=== PATIENT | female | born 1990 | race African-American/Black ===

== ENCOUNTER 2017-02-24 22:25 | Observation (INO) | payer MEDICAID ==
[~2017-02-24] VITALS: Ht 175.3 cm; Wt 75.0 kg
[~2017-02-24 22:25] MED LIST: BACT800T5 PO; CEPH500C3 PO; IBUP800T23 PO
[2017-02-24 22:45] VITALS: BP 141/93; PULSE 96; RESP 17; TEMP 99; O2SAT 100
[2017-02-24] MEDS ORDERED: SODIUM CHLOR 0.9% 1000 ML INJ 1,000 ML IV ONE (22:47)
--- NOTE | 2017-02-24 22:56 | PD ---
HPI Chief Complaint: Cardiac Complaint Time Seen by Provider: 22:47 Travel History International Travel<30 days: No Contact w/Intl Traveler<30days: No Traveled to known affect area: No History of Present Illness HPI A 26 year old female presents to the emergency department for a "fast heart rate". This started about 45 minutes ago out of no where while she was driving home from work. A few minutes after her heart started to beat fast she noticed some numbness and tingling in her fingers on both sides. She pulled over and called 911. she denied shortness of breath, chest pain, nausea & vomiting. She has never had anything like this happen before. She smokes 2 black and milds a day and drinks 2 beers a week. Her mom has a history of heart valve problems. She has no medical conditions, denies taking any medications, and denies any drug allergies. She has had no surgeries. Patient denies any significant caffeine intake or prior history of arrhythmias. History Past Medical History Medical History: Denies Significant Hx : 1 Para: 1 Past Surgical History Surgical History: No Previous Surgery Social History Alcohol Use: Yes (OCCASIONALLY) Tobacco Use: Yes Allergies-Medications (Allergen,Severity, Reaction): Coded Allergies: No Known Allergies (Unverified , 02/24/17) Reported Meds & Prescriptions Reported Meds & Active Scripts Active No Active Prescriptions or Reported Medications Review of Systems Except as stated in HPI: all other systems reviewed are Neg General / Constitutional: No: Fever, Chills HENT: No: Headaches, Lightheadedness Cardiovascular: Positive: Palpitations, Tachycardia, No: Chest Pain or Discomfort, Diaphoresis, Edema Respiratory: No: Shortness of Breath Gastrointestinal: No: Nausea, Vomiting Musculoskeletal: No: Weakness Neurologic: Positive: Paresthesia, Sensory Disturbance, No: Dizziness Physical Exam Narrative GENERAL: Well-nourished, well-developed patient who is in no acute cardiopulmonary distress. SKIN: Warm and dry. HEAD: Normocephalic. EYES: No scleral icterus. No injection or drainage. NECK: Supple, trachea midline. No JVD or lymphadenopathy. CARDIOVASCULAR: Regular rate and rhythm without murmurs, gallops, or rubs. RESPIRATORY: Breath sounds equal bilaterally. No accessory muscle use. GASTROINTESTINAL: Abdomen soft, non-tender, nondistended. EXTREMITIES: No cyanosis, or edema. NEUROLOGICAL: Awake, alert, and oriented x 3. Non-focal. Data Data Last Documented VS Vital Signs Date Time Temp Pulse Resp B/P (MAP) Pulse Ox O2 Delivery O2 Flow Rate FiO2 02/24/17 23:29 134 18 98 Room Air 02/24/17 22:45 99.0 141/93 (109) Orders Orders Electrocardiogram (02/24/17 22:47) Complete Blood Count With Diff (02/24/17 22:47) Comprehensive Metabolic Panel (02/24/17 22:47) Magnesium (Mg) (02/24/17 22:47) Ckmb (Isoenzyme) Profile (02/24/17 22:47) Troponin I (02/24/17:47) Ecg Monitoring (02/24/17:47) Iv Access Insert/Monitor (02/24/17:47) Oximetry (02/24/17 22:47) Sodium Chloride 0.9% Flush (Ns Flush) (02/24/17 23:00) Sodium Chlor 0.9% 1000 Ml Inj (Ns 1000 M (02/24/17 22:47) D-Dimer (02/24/17:47) Thyroid Stimulating Hormone (02/24/17 22:47) Ed Urine Pregnancytest Poc (02/24/17:47) CKMB (02/24/17 22:00) CKMB% (02/24/17 22:00) Potassium Chloride (Kcl) (02/25/17 00:15) Labs Laboratory Tests Test 02/24/17 22:00 White Blood Count 7.3 TH/MM3 Red Blood Count 4.24 MIL/MM3 Hemoglobin 14.0 GM/DL Hematocrit 40.4 % Mean Corpuscular Volume 95.4 FL Mean Corpuscular Hemoglobin 33.1 PG Mean Corpuscular Hemoglobin Concent 34.7 % Red Cell Distribution Width 13.3 % Platelet Count 300 TH/MM3 Mean Platelet Volume 8.4 FL Neutrophils (%) (Auto) 46.2 % Lymphocytes (%) (Auto) 42.0 % Monocytes (%) (Auto) 10.3 % Eosinophils (%) (Auto) 1.0 % Basophils (%) (Auto) 0.5 % Neutrophils # (Auto) 3.4 TH/MM3 Lymphocytes # (Auto) 3.1 TH/MM3 Monocytes # (Auto) 0.8 TH/MM3 Eosinophils # (Auto) 0.1 TH/MM3 Basophils # (Auto) 0.0 TH/MM3 CBC Comment DIFF FINAL Differential Comment D-Dimer Quantitative (PE/DVT) 0.31 MG/L FEU Blood Urea Nitrogen 11 MG/DL Creatinine 1.04 MG/DL Random Glucose 102 MG/DL Total Protein 7.8 GM/DL Albumin 4.2 GM/DL Calcium Level 9.0 MG/DL Magnesium Level 1.6 MG/DL Alkaline Phosphatase 49 U/L Aspartate Amino Transf (AST/SGOT) 17 U/L Alanine Aminotransferase (ALT/SGPT) 17 U/L Total Bilirubin 2.1 MG/DL Sodium Level 136 MEQ/L Potassium Level 3.0 MEQ/L Chloride Level 102 MEQ/L Carbon Dioxide Level 23.0 MEQ/L Anion Gap 11 MEQ/L Estimat Glomerular Filtration Rate 76 ML/MIN Total Creatine Kinase 177 U/L Creatine Kinase MB 1.6 NG/ML Troponin I LESS THAN 0.02 NG/ML Thyroid Stimulating Hormone 3rd Gen 1.990 uIU/ML MDM Medical Decision Making Medical Screen Exam Complete: Yes Emergency Medical Condition: Yes Medical Record Reviewed: Yes Interpretation(s) EKG reveals normal sinus rhythm with a rate of 77. Short WI interval of 100 ms , no visible delta wave. 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 EKG #2 revealed sinus tachycardia with a rate of 121. Short interval [address] changes. No visible delta wave. Possible LGL Laboratory Tests Test 02/24/17 22:00 White Blood Count 7.3 TH/MM3 Red Blood Count 4.24 MIL/MM3 Hemoglobin 14.0 GM/DL Hematocrit 40.4 % Mean Corpuscular Volume 95.4 FL Mean Corpuscular Hemoglobin 33.1 PG Mean Corpuscular Hemoglobin Concent 34.7 % Red Cell Distribution Width 13.3 % Platelet Count 300 TH/MM3 Mean Platelet Volume 8.4 FL Neutrophils (%) (Auto) 46.2 % Lymphocytes (%) (Auto) 42.0 % Monocytes (%) (Auto) 10.3 % Eosinophils (%) (Auto) 1.0 % Basophils (%) (Auto) 0.5 % Neutrophils # (Auto) 3.4 TH/MM3 Lymphocytes # (Auto) 3.1 TH/MM3 Monocytes # (Auto) 0.8 TH/MM3 Eosinophils # (Auto) 0.1 TH/MM3 Basophils # (Auto) 0.0 TH/MM3 CBC Comment DIFF FINAL Differential Comment D-Dimer Quantitative (PE/DVT) 0.31 MG/L FEU Blood Urea Nitrogen 11 MG/DL Creatinine 1.04 MG/DL Random Glucose 102 MG/DL Total Protein 7.8 GM/DL Albumin 4.2 GM/DL Calcium Level 9.0 MG/DL Magnesium Level 1.6 MG/DL Alkaline Phosphatase 49 U/L Aspartate Amino Transf (AST/SGOT) 17 U/L Alanine Aminotransferase (ALT/SGPT) 17 U/L Total Bilirubin 2.1 MG/DL Sodium Level 136 MEQ/L Potassium Level 3.0 MEQ/L Chloride Level 102 MEQ/L Carbon Dioxide Level 23.0 MEQ/L Anion Gap 11 MEQ/L Estimat Glomerular Filtration Rate 76 ML/MIN Total Creatine Kinase 177 U/L Troponin I LESS THAN 0.02 NG/ML Thyroid Stimulating Hormone 3rd Gen 1.990 uIU/ML Differential Diagnosis SVT, pulmonary embolism, hyperthyroidism, hypothyroidism, electrolyte abnormalities, dehydration, Narrative Course IV was established, labs are drawn and sent, and the patient was placed on cardiac telemetry monitoring and continuous pulse oximetry monitoring. EKG #1 revealed normal sinus rhythm with short WI interval, EKG #2 revealed sinus tachycardia with a heart rate in the 120s with a short WI interval. D-dimer was negative at 0.31, therefore, no indication for CT pulmonary angiogram. TSH is within normal limits, I highly doubt hyperthyroidism. Potassium is low at 3.0, was replaced orally. The patient was reevaluated at 12:02 AM. The patient 's heart rate continued to vary between 80 and 130, appeared to be sinus tachycardia. Patient may have LGL, continues to be symptomatic, may benefit from echocardiogram, telemetry monitoring, and possible cardiology consultation for placement on a beta marysol if echocardiogram is negative. Patient agrees and understands. Therefore, the on-call medical service was paged for 23 hour observation. Physician Communication Physician Communication The on-call medical service was paged for 23 hour observation. Diagnosis Primary Impression: Inappropriate sinus node tachycardia Additional Impression: Hypokalemia Admitting Information Admitting Physician Requests: Observation Scripts No Active Prescriptions or Reported Meds Condition: Stable Tristan Valera MD Feb 24, 2017 22:56
[2017-02-24] MEDS ORDERED: SODIUM CHLORIDE 0.9% FLUSH 10 ML FLUSH IVF PRN (23:00)
[2017-02-24 23:29] VITALS: PULSE 134; RESP 18; O2SAT 98
[2017-02-24 23:44] LABS: ALT (GPT) 17 U/L (10-53); ANION GAP 11 MEQ/L (5-15); AST (GOT) 17 U/L (15-37); BLOOD UREA NITROGEN 11 MG/DL (7-18); CHLORIDE 102 MEQ/L (98-107); GLOMERULAR FILTRATION RATE 76 ML/MIN (>89); MAGNESIUM 1.6 MG/DL (1.5-2.5); SODIUM (NA) 136 MEQ/L (136-145)
[2017-02-24 23:54] LABS: ALKALINE PHOSPHATASE 49 U/L (45-117); CREATINE KINASE 177 U/L (26-192); TOTAL BILIRUBIN ADULT 2.1 MG/DL (0.2-1.0)
[2017-02-24 23:59] LABS: AUTOMATED NEUTROPHIL # 3.4 TH/MM3 (1.8-7.7); BASOPHIL % 0.5 % (0.0-2.0); EOSINOPHIL # 0.1 TH/MM3 (0-0.4); HEMATOCRIT 40.4 % (35.0-46.0); HEMO FLAGS DIFF FINAL; LYMPHOCYTE # 3.1 TH/MM3 (1.0-4.8); MEAN CELL VOLUME 95.4 FL (80.0-100.0); MEAN CORPUSCULAR HEMOGLOBIN 33.1 PG (27.0-34.0); MEAN CORPUSCULAR HGB CONC 34.7 % (32.0-36.0); MONO % 10.3 % (0.0-8.0); NEUT % 46.2 % (16.0-70.0); PLATELET COUNT 300 TH/MM3 (150-450); RED BLOOD COUNT 4.24 MIL/MM3 (4.00-5.30); RED CELL DISTRIBUTION WIDTH 13.3 % (11.6-17.2); WHITE BLOOD COUNT 7.3 TH/MM3 (4.0-11.0)
[2017-02-25] VITALS (9 sets, daily range): BP systolic 108–129; BP diastolic 53–75; PULSE 65–90; RESP 16–18; TEMP 98–99.3; O2SAT 99–100
[2017-02-25 00:06] LABS: CKMB 1.6 NG/ML (0.5-3.6)
[2017-02-25] MEDS ORDERED: POTASSIUM CHLORIDE 20 MEQ CONTROLLED RELEASE TAB PO ONE (00:15)
[2017-02-25] MEDS ORDERED: SODIUM CHLORIDE 0.9% FLUSH 10 ML FLUSH IV FLUSH PRN (00:45)
[2017-02-25] MEDS ORDERED: NALOXONE HCL 0.4 MG/ML AMP IV PRN (00:45)
[2017-02-25 05:25] LABS: CREATINE KINASE 157 U/L (26-192)
--- NOTE | 2017-02-25 08:30 | MB ---
cc: MARTINA BLAKE M.D. DATE OF CONSULTATION: 02/25/2017 REASON FOR CONSULTATION Tachycardia. HISTORY OF PRESENT ILLNESS The patient is a 26-year-old -Bh[place] female with no major past medical history who was in her usual state of health up until yesterday afternoon when while driving home from work she began to experience racing palpitations. She is unsure how long the palpitations lasted for but eventually she began to experience bilateral hand numbness and tingling so she became concerned and came to the emergency room. The patient states she has had two other episodes since coming into the hospital, lasting a few minutes. She denies prior episodes of tachycardic palpitations prior to yesterday. She denies chest pain, shortness of breath, dizziness, syncope, near-syncope, pedal edema, paroxysmal nocturnal dyspnea. She denies drug abuse. PAST MEDICAL HISTORY None. PAST SURGICAL HISTORY None. MEDICATIONS Medications at home are none. ALLERGIES No known drug allergies. FAMILY HISTORY The patient's mother may have sustained a myocardial infarction in her 50s. Her brother has hypertension. There is no family history of sudden cardiac . SOCIAL HISTORY The patient smokes cigarettes. She denies alcohol abuse. REVIEW OF SYSTEMS As in the history of present illness, otherwise negative or noncontributory. She also denies headache, abdominal pain, melena, bright red blood per rectum. Rarely she experiences heartburn. PHYSICAL EXAMINATION VITAL SIGNS: On physical examination her blood pressure is 110/60 with a pulse of 82, respirations 16. GENERAL: In general she is a well-developed, well-nourished -Bhut[place] female in no acute distress. HEENT/NECK: Jugular venous pressure is normal. Carotid pulses are 2+ bilaterally and without bruits. CHEST: Examination of the chest reveals clear lung frazier. CARDIAC: On cardiac examination she has a regular rhythm and rate without S3, S4, or murmur. ABDOMEN: On abdominal examination she has a soft, nontender abdomen. Bowel sounds are present. There is no definite hepatosplenomegaly. EXTREMITIES: Examination of the extremities reveals no clubbing, cyanosis or edema. LABORATORY Laboratory data includes normal CBC, potassium 3.0, BUN 11, creatinine 1.04, troponin less than 0.02, CK 177, TSH 1.99. EKG EKG from 02/24/2017 at 11:26 p.m. shows sinus tachycardia, otherwise normal. 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 Indeed she has had intermittent paroxysms of tachycardia without any definitive precipitating factor. Her previous EKGs do suggest a shortened PA interval. She has no associated lightheadedness or near-syncope with these palpitations. Clinically there is no definite evidence for pulmonary embolism or acute coronary syndrome. I discussed with the patient potential treatment options. It appears she has not had any prior symptomatic episodes of tachycardia before this admission. RECOMMENDATIONS 1. Overall conservative therapy at this time. If in the future she has recurrent significant racing palpitations, consider the use of Cardizem and/or an electrophysiology study. 2. Replete her potassium. 3. Check a 2-D echo to assess her left ventricular function. 4. She can be discharged home later today if stable. MD PAVEL Blum/VINAY /8:06 AM /8:15 AM MTDTricia
[2017-02-25] MEDS: SODIUM CHLORIDE 0.9% FLUSH 10 ML FLUSH IV FLUSH SCH ×2 (09:51→21:00)
--- NOTE | 2017-02-25 12:27 | HHI.HP ---
HPI Service [facility] Primary Care Physician No Primary Care Physician Admission Diagnosis inappropriate sinus tachycardia rule out LGL Diagnoses: (1) Inappropriate sinus node tachycardia (2) Hypokalemia (3) Lown Ganong Ramos syndrome Chief Complaint: Heart palpitations Travel History International Travel<30 Days: No Contact w/Intl Traveler <30 Da: No Traveled to Known Affected Are: No History of Present Illness 26 year-old -Marshallese female with no significant past medical history was brought to the ED last night for evaluation of an acute onset of sustained racing palpitation associated with shortness of breath as well as upper extremity tingling. Patient states, 5 minutes after she has left work and how she was driving her car she started feeling her heart racing without any chest pain(10 minutes then associated with upper extremity tingling as well as dizziness and shortness of breath. 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 She has no prior history. She denies any drug use. And she also denies drinking any caffeinated drink. She denies any GI bleed Review of Systems Except as stated in HPI: all other systems reviewed are Neg Past Family Social History Past Medical History Denies Significant Hx Past Surgical History No Previous Surgery Reported Medications No Active Prescriptions or Reported Medications Allergies: Coded Allergies: No Known Allergies (Unverified , 02/24/17) Family History Mother With history of atrial fibrillation, COPD, heart disease Social History Alcohol Use: Yes (OCCASIONALLY) Tobacco Use: Yes Physical Exam Vital Signs Vital Signs Date Time Temp Pulse Resp B/P (MAP) Pulse Ox O2 Delivery O2 Flow Rate FiO2 02/25/17 10:57 98.6 81 18 118/62 (80) 99 02/25/17 07:55 98.4 82 16 110/61 (77) 100 02/25/17 04:25 98.7 74 17 120/57 (78) 100 02/25/17 02:27 99.3 76 17 112/67 (82) 99 02/25/17 01:55 02/25/17 00:58 90 18 129/75 (93) 99 Room Air 02/24/17 23:29 134 18 98 Room Air 02/24/17 22:47 96 17 100 Room Air 02/24/17 22:45 99.0 96 17 141/93 (109) 100 Physical Exam GENERAL: This is a well-nourished, well-developed patient, in no apparent distress. SKIN: No rashes, ecchymoses or lesions. Cool and dry. HEAD: Atraumatic. Normocephalic. No temporal or scalp tenderness. EYES: Pupils equal round and reactive. Extraocular motions intact. No scleral icterus. No injection or drainage. ENT: Nose without bleeding, purulent drainage or septal hematoma. Throat without erythema, tonsillar hypertrophy or exudate. Uvula midline. Airway patent. NECK: Trachea midline. No JVD or lymphadenopathy. Supple, nontender, no meningeal signs. CARDIOVASCULAR: Regular rate and rhythm without murmurs, gallops, or rubs. RESPIRATORY: Clear to auscultation. Breath sounds equal bilaterally. No wheezes , rales, or rhonchi. GASTROINTESTINAL: Abdomen soft, non-tender, nondistended. No hepato-splenomegaly , or palpable masses. No guarding. MUSCULOSKELETAL: Extremities without clubbing, cyanosis, or edema. No joint tenderness, effusion, or edema noted. No calf tenderness. Negative Homans sign bilaterally. NEUROLOGICAL: Awake and alert. Cranial nerves II through XII intact. Motor and sensory grossly within normal limits. Five out of 5 muscle strength in all muscle groups. Normal speech. Laboratory Laboratory Tests Test 02/24/17 22:00 02/25/17 04:35 White Blood Count 7.3 Red Blood Count 4.24 Hemoglobin 14.0 Hematocrit 40.4 Mean Corpuscular Volume 95.4 Mean Corpuscular Hemoglobin 33.1 Mean Corpuscular Hemoglobin Concent 34.7 Red Cell Distribution Width 13.3 Platelet Count 300 Mean Platelet Volume 8.4 Neutrophils (%) (Auto) 46.2 Lymphocytes (%) (Auto) 42.0 Monocytes (%) (Auto) 10.3 Eosinophils (%) (Auto) 1.0 Basophils (%) (Auto) 0.5 Neutrophils # (Auto) 3.4 Lymphocytes # (Auto) 3.1 Monocytes # (Auto) 0.8 Eosinophils # (Auto) 0.1 Basophils # (Auto) 0.0 CBC Comment DIFF FINAL Differential Comment D-Dimer Quantitative (PE/DVT) 0.31 Blood Urea Nitrogen 11 Creatinine 1.04 Random Glucose 102 Total Protein 7.8 Albumin 4.2 Calcium Level 9.0 Magnesium Level 1.6 Alkaline Phosphatase 49 Aspartate Amino Transf (AST/SGOT) 17 Alanine Aminotransferase (ALT/SGPT) 17 Total Bilirubin 2.1 Sodium Level 136 Potassium Level 3.0 Chloride Level 102 Carbon Dioxide Level 23.0 Anion Gap 11 Estimat Glomerular Filtration Rate 76 Total Creatine Kinase 177 157 Creatine Kinase MB 1.6 Troponin I LESS THAN 0.02 LESS THAN 0.02 Thyroid Stimulating Hormone 3rd Gen 1.990 Result Diagram: 02/24/17219902/24/172199 Caprini VTE Risk Assessment Caprini VTE Risk Assessment: No/Low Risk (score <= 1) Caprini Risk Assessment Model Point Value = 1 Point Value = 2 Point Value = 3 Point Value = 5 Age 41-60 Minor surgery BMI > 25 kg/m2 Swollen legs Varicose veins or History of unexplained or recurrent spontaneous Oral contraceptives or hormone replacement Sepsis (< 1 month) Serious lung disease, including pneumonia (< 1 month) Abnormal pulmonary function Acute myocardial infarction Congestive heart failure (< 1 month) History of inflammatory bowel disease Medical patient at bed rest Age 61-74 Arthroscopic surgery Major open surgery (> 45 min) Laparoscopic surgery (> 45 min) Malignancy Confined to bed (> 72 hours) Immobilizing plaster cast Central venous access Age >= 75 History of VTE Family history of VTE Factor V Leiden Prothrombin [id number] Lupus anticoagulant Anticardiolipin antibodies Elevated serum homocysteine Heparin-induced thrombocytopenia Other congenital or acquired thrombophilia Stroke (< 1 month) Elective arthroplasty Hip, pelvis, or leg fracture Acute spinal cord injury (< 1 month) Prophylaxis Regimen Total Risk Factor Score Risk Level Prophylaxis Regimen 0-1 Low Early ambulation 2 Moderate Order ONE of the following: *Sequential Compression Device (SCD) *Heparin 5000 units SQ BID 3-4 Higher Order ONE of the following medications: *Heparin 5000 units SQ TID *Enoxaparin/Lovenox 40 mg SQ daily (WT < 150 kg, CrCl > 30 mL/min) *Enoxaparin/Lovenox 30 mg SQ daily (WT < 150 kg, CrCl > 10-29 mL/min) *Enoxaparin/Lovenox 30 mg SQ BID (WT < 150 kg, CrCl > 30 mL/min) AND/OR *Sequential Compression Device (SCD) 5 or more Highest Order ONE of the following medications: *Heparin 5000 units SQ TID (Preferred with Epidurals) *Enoxaparin/Lovenox 40 mg SQ daily (WT < 150 kg, CrCl > 30 mL/min) *Enoxaparin/Lovenox 30 mg SQ daily (WT < 150 kg, CrCl > 10-29 mL/min) *Enoxaparin/Lovenox 30 mg SQ BID (WT < 150 kg, CrCl > 30 mL/min) AND *Sequential Compression Device (SCD) Assessment and Plan Problem List: (1) Inappropriate sinus node tachycardia ICD Code: R00.0 - Tachycardia, unspecified Status: Acute (2) Hypokalemia ICD Code: E87.6 - Hypokalemia Status: Acute (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
[2017-02-25 14:05] LABS: CREATINE KINASE 157 U/L (26-192)
--- NOTE | 2017-02-25 19:35 | EKG ---
Date Performed: 02/25/2017 Time Performed: 05:37:15 PTAGE: 26 years EKG: Sinus rhythm NORMAL ECG PREVIOUS TRACING : 02/24/2017 23.26 Compared to the previous tracing rate slower DOCTOR: Charles Martino Interpretating Date/Time 02/25/2017 19:33:37
--- NOTE | 2017-02-25 19:42 | EKG ---
Date Performed: 02/24/2017 Time Performed: 23:26:03 PTAGE: 26 years EKG: SINUS TACHYCARDIA WITH SHORT AL INTERVAL POSSIBLE RIGHT VENTRICULAR CONDUCTION DELAY MODERA TE ST DEPRESSION ABNORMAL ECG PREVIOUS TRACING : 02/24/2017 23.12 Compared to the previous tracing ST changes and faster HR p resent DOCTOR: Charles Martino Interpretating Date/Time 02/25/2017 19:40:54
--- NOTE | 2017-02-25 19:42 | EKG ---
Date Performed: 02/24/2017 Time Performed: 23:12:19 PTAGE: 26 years EKG: Sinus rhythm WITH SHORT OR INTERVAL POSSIBLE RIGHT VENTRICULAR CONDUCTION DELAY BORDERLINE ECG PREVIOUS TRACING : 08/09/2014 05.07 Compared to prior tracing no significant change DOCTOR: Charles Martino Interpretating Date/Time 02/25/2017 19:41:13
--- NOTE | 2017-02-25 19:58 | ECHRPT ---
Indication: ARRTHYMIA CONCLUSIONS Normal left ventricular size. Wall thickness is normal. The left ventricular systolic function is n ormal with an estimated ejection fraction in the range of 55-60%. No regional wall motion abnormalities are pre sent. Trace mitral valve regurgitation. There is trace to mild tricuspid valve regurgitation. BP: / HR: Rhythm: Technical Quality: FINDINGS LEFT VENTRICLE Normal left ventricular size. Wall thickness is normal. The left ventricular systolic function is normal with an estimated ejection fraction in the range of 55-60%. No regional wall motion abnormalities are present. RIGHT VENTRICLE Normal right ventricular size and systolic function. LEFT ATRIUM The left atrial size is normal. RIGHT ATRIUM The right atrial size is normal. ATRIAL SEPTUM Normal atrial septal thickness without atrial level shunting by limited color doppler interrogation. AORTA The aortic root and proximal ascending aorta are normal in size on limited imaging. MITRAL VALVE Trace mitral valve regurgitation. AORTIC VALVE Trileaflet aortic valve. No aortic valve stenosis or regurgitation. TRICUSPID VALVE There is trace to mild tricuspid valve regurgitation. PULMONARY VALVE The pulmonary valve is not well visualized. VESSELS The inferior vena cava is normal in size. PERICARDIUM No pericardial effusion. James Bey MD (Electronically Signed) Final Date:25 February 2017 19:57
[2017-02-26 00:01] VITALS: PULSE 66
[2017-02-26 00:24] VITALS: BP 114/56; PULSE 68; RESP 18; TEMP 98.5; O2SAT 99
[2017-02-26 04:00] VITALS: PULSE 66
[2017-02-26 04:21] VITALS: BP 119/78; PULSE 66; RESP 20; TEMP 98.3; O2SAT 100
[2017-02-26 04:47] LABS: AUTOMATED NEUTROPHIL # 3.9 TH/MM3 (1.8-7.7); BASOPHIL % 0.7 % (0.0-2.0); EOSINOPHIL # 0.2 TH/MM3 (0-0.4); EOSINOPHIL % 2.4 % (0.0-4.0); HEMO FLAGS DIFF FINAL; LYMPH % 31.3 % (9.0-44.0); LYMPHOCYTE # 2.2 TH/MM3 (1.0-4.8); MEAN CORPUSCULAR HEMOGLOBIN 32.4 PG (27.0-34.0); MEAN CORPUSCULAR HGB CONC 33.8 % (32.0-36.0); MONO % 10.6 % (0.0-8.0); PLATELET COUNT 277 TH/MM3 (150-450); RED BLOOD COUNT 4.17 MIL/MM3 (4.00-5.30); RED CELL DISTRIBUTION WIDTH 13.4 % (11.6-17.2); WHITE BLOOD COUNT 7.1 TH/MM3 (4.0-11.0)
[2017-02-26 05:08] LABS: BICARBONATE 25.3 MEQ/L (21.0-32.0); POTASSIUM 3.8 MEQ/L (3.5-5.1)
[2017-02-26 07:06] VITALS: BP 108/53; PULSE 71; RESP 16; TEMP 98.3; O2SAT 100
--- NOTE | 2017-02-26 07:18 | PD.CARD.PN ---
Subjective Subjective Remarks No further palpitations. No dyspnea, CP. Objective Medications No cardiac medications. Vital Signs / I&O Vital Signs Date Time Temp Pulse Resp B/P (MAP) Pulse Ox O2 Delivery O2 Flow Rate FiO2 02/26/17 07:06 98.3 71 16 108/53 (71) 100 02/26/17 04:21 98.3 66 20 119/78 (92) 100 02/26/17 04:00 66 02/26/17 00:24 98.5 68 18 114/56 (75) 99 02/26/17 00:01 66 02/25/17 20:38 99.2 69 18 115/70 (85) 100 02/25/17 20:30 84 02/25/17 14:52 98.0 75 16 108/53 (71) 99 02/25/17 10:57 98.6 81 18 118/62 (80) 99 02/25/17 08:35 65 02/25/17 07:55 98.4 82 16 110/61 (77) 100 Physical Exam GENERAL: Well developed, well nourished. No acute distress. HEENT: Jugular venous pressure is normal. CHEST: Lungs clear to auscultation bilaterally. Unlabored respiratory effort. CARDIAC: Regular rate and rhythm without S3, S4, or murmur. ABDOMEN: Soft, nontender, no hepatosplenomegaly. Bowel sounds present. EXTREMITIES: No clubbing, cyanosis, or edema. Laboratory Laboratory Tests Test 02/25/17 12:40 02/26/17 04:25 Potassium Level 4.0 MEQ/L 3.8 MEQ/L Total Creatine Kinase 157 U/L Troponin I LESS THAN 0.02 NG/ML White Blood Count 7.1 TH/MM3 Red Blood Count 4.17 MIL/MM3 Hemoglobin 13.5 GM/DL Hematocrit 40.0 % Mean Corpuscular Volume 96.0 FL Mean Corpuscular Hemoglobin 32.4 PG Mean Corpuscular Hemoglobin Concent 33.8 % Red Cell Distribution Width 13.4 % Platelet Count 277 TH/MM3 Mean Platelet Volume 7.5 FL Neutrophils (%) (Auto) 55.0 % Lymphocytes (%) (Auto) 31.3 % Monocytes (%) (Auto) 10.6 % Eosinophils (%) (Auto) 2.4 % Basophils (%) (Auto) 0.7 % Neutrophils # (Auto) 3.9 TH/MM3 Lymphocytes # (Auto) 2.2 TH/MM3 Monocytes # (Auto) 0.8 TH/MM3 Eosinophils # (Auto) 0.2 TH/MM3 Basophils # (Auto) 0.0 TH/MM3 CBC Comment DIFF FINAL Differential Comment Blood Urea Nitrogen 13 MG/DL Creatinine 0.83 MG/DL Random Glucose 98 MG/DL Calcium Level 9.1 MG/DL Sodium Level 139 MEQ/L Chloride Level 107 MEQ/L Carbon Dioxide Level 25.3 MEQ/L Anion Gap 7 MEQ/L Estimat Glomerular Filtration Rate 99 ML/MIN Assessment and Plan Problem List: (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 No further tachycardia. Echo normal. 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 Discussed at length with patient. At this time recommend no specific medical therapy unless she has significant tachycardia recurrences in the future. OK for discharge today from a cardiac standpoint. Code Status full code Discussed Condition With patient James Bey MD Feb 26, 2017 07:18
--- NOTE | 2017-02-26 09:07 | HHI.PR ---
Subjective Remarks Follow up Inappropriate sinus node tachycardia 02/26/17-patient seen and examined; no more complaint of heart palpitations. stable Objective Vitals Vital Signs Date Time Temp Pulse Resp B/P (MAP) Pulse Ox O2 Delivery O2 Flow Rate FiO2 02/26/17 07:06 98.3 71 16 108/53 (71) 100 02/26/17 04:21 98.3 66 20 119/78 (92) 100 02/26/17 04:00 66 02/26/17 00:24 98.5 68 18 114/56 (75) 99 02/26/17 00:01 66 02/25/17 20:38 99.2 69 18 115/70 (85) 100 02/25/17 20:30 84 02/25/17 14:52 98.0 75 16 108/53 (71) 99 02/25/17 10:57 98.6 81 18 118/62 (80) 99 Result Diagram: 02/26/17 0425 02/26/17 0425 Objective Remarks GENERAL: NAD SKIN: Warm and dry. HEAD: Normocephalic. EYES: No scleral icterus. No injection or drainage. NECK: Supple, trachea midline. No JVD or lymphadenopathy. CARDIOVASCULAR: Regular rate and rhythm without murmurs, gallops, or rubs. RESPIRATORY: Breath sounds equal bilaterally. No accessory muscle use. GASTROINTESTINAL: Abdomen soft, non-tender, nondistended. MUSCULOSKELETAL: No cyanosis, or edema. BACK: Nontender without obvious deformity. No CVA tenderness. 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 Appreciate input from cardiology Continue current conservative management 2-D echo with EF of 55-60%; ACS ruled out per protocol with serial cardiac enzyme and EKG No thyroid dysfunction with normal TSH Consider Cardizem if patient stayed with tachycardia Hypokalemia Replaced DVT prophylaxis:B-SCDs Discharge Planning Discharge patient to home Condition on discharge: Improved Regular Diet as tolerated Ad Jacquie activity Rx written:None Follow-up with primary care physician in 1 week Rsusell Jones MD Feb 26, 2017 09:07
[2017-02-26] MEDS: SODIUM CHLORIDE 0.9% FLUSH 10 ML FLUSH IV FLUSH SCH (09:31)
--- NOTE | 2017-02-27 08:37 | MB ---
cc: MARY CONN MD DATE OF CONSULTATION 02/27/2017 REASON FOR CONSULTATION This is a 26-year-old woman who is admitted for observation for palpitations. She was just recently discharged from the hospital for a similar episode. She noted that she was driving home from her work when she began having palpitations. She felt numbness in her fingers and lightheadedness. She called 9-1-1 and on arrival to the hospital was noted to have a pulse rate of 160. Unfortunately it was not captured and subsequent EKG's have been normal. Serial troponins were unremarkable. An echocardiogram done at her last hospitalization several days ago was essentially normal. She has otherwise enjoyed good health. She has no history of hypertension or diabetes. ALLERGIES No allergies are present. SOCIAL HISTORY She does smoke small cigars. She does not use recreational drugs. PHYSICAL EXAM On physical exam, she is awake and alert. VITAL SIGNS: Her blood pressure is 108/60, pulse is 71. NECK: There is no neck vein distension. LUNGS: Clear. CARDIOVASCULAR: Regular rate and rhythm with no significant murmur or gallop. The electrocardiogram does demonstrate a short AR interval. ASSESSMENT The patient has probable SVT. I really do not feel that her short period interval really influences this much, but in view of her recurrence, I have suggested that we start her on a small dose of metoprolol at 25 mg twice a day. We have discussed Valsalva maneuver and cold water as non-medical ways to help break possible SVT. MD ESDRAS Dumont/JENNY /8:13 AM /8:29 AM
[2017-02-27] MEDS ORDERED: METO25TA3 PO (11:43)
== END 2017-02-26 11:37 | disposition home or self-care (01) ==
LOC: NEPE 22:25 → NEDA 02-25 00:55 → NEPGCP 02-25 02:05
PROVIDERS: ADMIT Hospitalist; ATTEND Hospitalist
DX: I47.1 Supraventricular tachycardia (principal); E87.6 Hypokalemia; I45.6 Pre-excitation syndrome; F17.210 Nicotine dependence, cigarettes, uncomplicated
CPT/HCPCS: 80048; 80053; 82550; 82552; 83735; 84132; 84443; 84484; 84703; 85025; 85379; 93005; 93306; 96360; 99285; G0378; J7030

== ENCOUNTER 2017-02-26 12:46 | Observation (INO) | payer MEDICAID ==
[2017-02-26 12:48] VITALS: BP 134/74; PULSE 98; RESP 15; TEMP 98.7; O2SAT 98
--- NOTE | 2017-02-26 12:51 | PD ---
Physical Exam Time Seen by Provider: 12:49 Narrative 26yo F discharge this morning from [place] for palpitations. HR was 157 when she got home so she came back for evaluation. Denies chest pain, SOB now. Had chest pain and SOB at home w/ palpitations. Patient seen in triage. VS reviewed. Awaiting bed placement. Data Data Last Documented VS Vital Signs Date Time Temp Pulse Resp B/P (MAP) Pulse Ox O2 Delivery O2 Flow Rate FiO2 02/26/17 12:48 98.7 98 15 134/74 (94) 98 MDM Supervised Visit with KENDELL: No Scripts No Active Prescriptions or Reported Meds Cuca Tirado Feb 26, 2017 12:51
--- NOTE | 2017-02-26 17:49 | RADRPT ---
EXAM DATE/TIME: 02/26/2017 17:29 [facility] COMPARISON: No previous studies available for comparison. INDICATIONS : Palpitations and dizziness. MEDICAL HISTORY : None. SURGICAL HISTORY : None. ENCOUNTER: Initial ACUITY: 1 day PAIN SCORE: 0/10 LOCATION: Bilateral chest FINDINGS: The lungs are clear without infiltrate, nodule, or mass. There is no appreciable pleural effusion fo r technique. Heart and mediastinum are unremarkable. CONCLUSION: No acute cardiopulmonary disease. Seferino Saez MD on February 26, 2017 at 17:47 Board Certified Radiologist. This report was verified electronically.
--- NOTE | 2017-02-26 18:13 | PD ---
HPI Chief Complaint: Medical Clearance Time Seen by Provider: 16:43 Travel History International Travel<30 days: No Contact w/Intl Traveler<30days: No Traveled to known affect area: No History of Present Illness HPI 26-year-old female presents to the ED for evaluation of palpitations. Patient states that she was at home after being discharged from the hospital today. She walked down to the corner store for [employer] and then rested for approximately 30 minutes. She states that she began to experience palpitations. She put her digital heart monitor on and recorded heart rate of 157 for approximately 10 minutes. She states that th heart rate was measured at approximately 130 bpm for another 10 minutes. She denies associated chest pain, nausea, vomiting, weakness, syncope. She called her brother to the house and reported to the ED. [facility] Past Medical History Medical History: Denies Significant Hx Blood Disorders: No Cancer: No Cardiovascular Problems: No Chemotherapy: No Diminished Hearing: No Endocrine: No Genitourinary: No Immune Disorder: No Musculoskeletal: No Neurologic: No Psychiatric: No Reproductive: No Respiratory: No Integumentary: Yes (cellulitis R outer leg ) Immunizations Current: Yes Radiation Therapy: No Tetanus Vaccination: Unknown ?: Not : 1 Para: 1 Past Surgical History Surgical History: No Previous Surgery Social History Alcohol Use: Yes (OCCASIONAL) Tobacco Use: Yes Substance Use: No Allergies-Medications (Allergen,Severity, Reaction): Coded Allergies: No Known Allergies (Unverified , 02/24/17) Reported Meds & Prescriptions Reported Meds & Active Scripts Active No Active Prescriptions or Reported Medications Review of Systems Except as stated in HPI: all other systems reviewed are Neg Physical Exam Narrative GENERAL: Well-nourished, well-developed pleasant black female in no acute distress. SKIN: Focused skin assessment warm/dry. HEAD: Normocephalic. EYES: No scleral icterus. No injection or drainage. NECK: Supple, trachea midline. No JVD or lymphadenopathy. CARDIOVASCULAR: Regular rate and rhythm without murmurs, gallops, or rubs. 2+ DP and radial pulses bilaterally. RESPIRATORY: Breath sounds equal bilaterally. No accessory muscle use. GASTROINTESTINAL: Abdomen soft, non-tender, nondistended. Active bowel sounds. MUSCULOSKELETAL: No cyanosis, or edema. BACK: Nontender without obvious deformity. No CVA tenderness. Data Data Last Documented VS Vital Signs Date Time Temp Pulse Resp B/P (MAP) Pulse Ox O2 Delivery O2 Flow Rate FiO2 02/26/17 12:48 98.7 98 15 134/74 (94) 98 Orders Orders Electrocardiogram (02/26/17 17:12) Chest, Single Ap (02/26/17 17:12) Place In Observation (02/26/17 ) Vital Signs (Adult) Q4H (02/26/17 18:58) Activity Oob Ad Jacquie (02/26/17 18:58) Master Brewer / Telemetry .CONTINUOUS (02/26/17 18:58) Diet Heart Healthy (02/26/17 Dinner) Sodium Chloride 0.9% Flush (Ns Flush) (02/26/17 19:00) Sodium Chloride 0.9% Flush (Ns Flush) (02/26/17 21:00) Naloxone Inj (Narcan Inj) (02/26/17 19:00) Diltiazem (Cardizem) (02/26/17 21:00) Admit Order (Ed Use Only) (02/26/17 18:59) Diltiazem (Cardizem) (02/26/17 19:00) MDM Medical Decision Making Medical Screen Exam Complete: Yes Emergency Medical Condition: Yes Differential Diagnosis Arrhythmia versus A. fib versus LGL syndrome versus other Narrative Course 26-year-old female presents to the ED for evaluation of intermittent palpitations. Patient states that she walked to the store for [employer] and rested approximately 30 minutes. She states that she began to experience palpitations, measured a heart rate of 157 for approximately 10 minutes with a digital heart monitor. She states that this was followed by a 10 minute period of 1:30 bpm's. She denies associated chest pain, shortness of breath, nausea, vomiting, weakness, syncope. Per record review the patient was just discharged from the hospital today with concern for LGL syndrome. The legal investigator and supervisor landscape considered placing her on Cardizem. EKG rate 66, sinus rhythm. UT interval 120, QRS 74, QTC 377. Normal axis. No acute ST changes. Reviewed by Dr. Oscar. I spoke with Dr. Villagran, cardiology who recommends initiating Cardizem. The patient has no insurance and no primary care. At discharge today the plan was for her to follow up but this does not seem likely in a patient in this situation. We'll admit for observation to initiate Cardizem and secure reliable follow-up. I spoke with Dr. Faith who agrees to accept the patient to the medicine service. Please see medicine and cardiology notes for disposition. Scripts No Active Prescriptions or Reported Meds Maricarmen Estrada Feb 26, 2017 18:13
[2017-02-26] MEDS ORDERED: SODIUM CHLORIDE 0.9% FLUSH 10 ML FLUSH IV FLUSH PRN (19:00)
[2017-02-26] MEDS ORDERED: NALOXONE HCL 0.4 MG/ML AMP IV PRN (19:00)
[2017-02-26] MEDS ORDERED: DILTIAZEM HCL 30 MG TAB PO ONE (19:00)
[2017-02-26] MEDS: SODIUM CHLORIDE 0.9% FLUSH 10 ML FLUSH IV FLUSH SCH (21:00)
[2017-02-26] MEDS: DILTIAZEM HCL 30 MG TAB PO SCH (21:07)
[2017-02-26 21:17] VITALS: PULSE 67
[2017-02-26 21:19] VITALS: BP 120/79; PULSE 74; RESP 18; TEMP 98.4; O2SAT 100
[2017-02-27] VITALS: PULSE 60
[2017-02-27 02:54] VITALS: BP 125/80; PULSE 75; RESP 18; TEMP 98.2; O2SAT 100
[2017-02-27 04:00] VITALS: PULSE 60
[2017-02-27 08:28] VITALS: BP 108/52; PULSE 66; RESP 16; TEMP 98; O2SAT 100
[2017-02-27 08:40] VITALS: PULSE 71
[2017-02-27] MEDS: DILTIAZEM HCL 30 MG TAB PO SCH (08:40)
[2017-02-27] MEDS: SODIUM CHLORIDE 0.9% FLUSH 10 ML FLUSH IV FLUSH SCH (08:40)
--- NOTE | 2017-02-27 11:41 | HHI.HP ---
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 She felt the symptoms are scary and therefore came back in to the emergency room for further evaluation. Upon arriving, she has not had recurrent symptoms. She was seen previously by a tie inspector who recommended considering medications for recurrent symptoms. Her 2-D echo obtained showed normal ejection fraction. She has not had recurrence of symptoms overnight. She was placed on low-dose Cardizem on admission. During the previous admission the differential diagnosis for Lown Ganong syndrome was entertained. Review of Systems Constitutional: COMPLAINS OF: Dizziness, DENIES: Fatigue, Fever, Chills, Change in appetite Endocrine: DENIES: Heat/cold intolerance Eyes: DENIES: Blurred vision, Eye pain, Vision loss Ears, nose, mouth, throat: DENIES: Hearing loss, Nasal discharge, Throat pain, Ear Pain, Sinus Pain Respiratory: DENIES: Cough, Shortness of breath Cardiovascular: COMPLAINS OF: Palpitations, DENIES: Chest pain, Dyspnea on Exertion, Lower Extremity Edema Gastrointestinal: DENIES: Abdominal pain, Black stools, Bloody stools, Constipation, Diarrhea, Nausea, Vomiting Genitourinary: DENIES: Dysuria Musculoskeletal: DENIES: Joint pain, Muscle aches, Stiffness Integumentary: DENIES: Rash Hematologic/lymphatic: DENIES: Bruising, Lymphadenopathy Immunologic/allergic: DENIES: Eczema Neurologic: DENIES: Headache, Localized weakness, Paresthesias Psychiatric: DENIES: Anxiety, Depression, Suicidal Ideation Past Family Social History Past Medical History None Past Surgical History None Reported Medications None Allergies: Coded Allergies: No Known Allergies (Unverified , 8/22/17) Family History Mother has COPD and VTE Social History Does smoke. Does not drink alcohol Physical Exam Vital Signs Vital Signs Date Time Temp Pulse Resp B/P (MAP) Pulse Ox O2 Delivery O2 Flow Rate FiO2 02/27/17 08:28 98.0 66 16 108/52 (70) 100 02/27/17 04:00 60 02/27/17 02:54 98.2 75 18 125/80 (95) 100 02/27/17 00:00 60 02/26/17 21:19 98.4 74 18 120/79 (93) 100 02/26/17 21:17 67 02/26/17 12:48 98.7 98 15 134/74 (94) 98 Physical Exam GENERAL: This is a well-nourished, well-developed patient, in no apparent distress. SKIN: No rashes, ecchymoses or lesions. Cool and dry. HEAD: Atraumatic. Normocephalic. No temporal or scalp tenderness. EYES: Pupils equal round and reactive. Extraocular motions intact. No scleral icterus. No injection or drainage. ENT: Nose without bleeding, purulent drainage or septal hematoma. Throat without erythema, tonsillar hypertrophy or exudate. Uvula midline. Airway patent. NECK: Trachea midline. No JVD or lymphadenopathy. Supple, nontender, no meningeal signs. CARDIOVASCULAR: Regular rate and rhythm without murmurs, gallops, or rubs. RESPIRATORY: Clear to auscultation. Breath sounds equal bilaterally. No wheezes , rales, or rhonchi. GASTROINTESTINAL: Abdomen soft, non-tender, nondistended. No hepato-splenomegaly , or palpable masses. No guarding. MUSCULOSKELETAL: Extremities without clubbing, cyanosis, or edema. No joint tenderness, effusion, or edema noted. No calf tenderness. Negative Homans sign bilaterally. NEUROLOGICAL: Awake and alert to person place time and situation. Cranial nerves II through XII intact. Motor and sensory grossly within normal limits. Five out of 5 muscle strength in all muscle groups. Normal speech. Imaging Last Impressions Chest X-Ray 02/26/17 5632 Signed Impressions: Service Date/Time: February 17:29 - CONCLUSION: No acute cardiopulmonary disease. MD Mei Omer VTE Risk Assessment Mei VTE Risk Assessment: No/Low Risk (score <= 1) Caprini Risk Assessment Model Point Value = 1 Point Value = 2 Point Value = 3 Point Value = 5 Age 41-60 Minor surgery BMI > 25 kg/m2 Swollen legs Varicose veins or History of unexplained or recurrent spontaneous Oral contraceptives or hormone replacement Sepsis (< 1 month) Serious lung disease, including pneumonia (< 1 month) Abnormal pulmonary function Acute myocardial infarction Congestive heart failure (< 1 month) History of inflammatory bowel disease Medical patient at bed rest Age 61-74 Arthroscopic surgery Major open surgery (> 45 min) Laparoscopic surgery (> 45 min) Malignancy Confined to bed (> 72 hours) Immobilizing plaster cast Central venous access Age >= 75 History of VTE Family history of VTE Factor V Leiden Prothrombin [id number] Lupus anticoagulant Anticardiolipin antibodies Elevated serum homocysteine Heparin-induced thrombocytopenia Other congenital or acquired thrombophilia Stroke (< 1 month) Elective arthroplasty Hip, pelvis, or leg fracture Acute spinal cord injury (< 1 month) Prophylaxis Regimen Total Risk Factor Score Risk Level Prophylaxis Regimen 0-1 Low Early ambulation 2 Moderate Order ONE of the following: *Sequential Compression Device (SCD) *Heparin 5000 units SQ BID 3-4 Higher Order ONE of the following medications: *Heparin 5000 units SQ TID *Enoxaparin/Lovenox 40 mg SQ daily (WT < 150 kg, CrCl > 30 mL/min) *Enoxaparin/Lovenox 30 mg SQ daily (WT < 150 kg, CrCl > 10-29 mL/min) *Enoxaparin/Lovenox 30 mg SQ BID (WT < 150 kg, CrCl > 30 mL/min) AND/OR *Sequential Compression Device (SCD) 5 or more Highest Order ONE of the following medications: *Heparin 5000 units SQ TID (Preferred with Epidurals) *Enoxaparin/Lovenox 40 mg SQ daily (WT < 150 kg, CrCl > 30 mL/min) *Enoxaparin/Lovenox 30 mg SQ daily (WT < 150 kg, CrCl > 10-29 mL/min) *Enoxaparin/Lovenox 30 mg SQ BID (WT < 150 kg, CrCl > 30 mL/min) AND *Sequential Compression Device (SCD) Assessment and Plan Problem List: (1) SVT (supraventricular tachycardia) ICD Code: I47.1 - Supraventricular tachycardia Assessment and Plan 1. Nonsustained symptomatic palpitations with possibly nonsustained SVT- cardiology consulted per Dr. Heart recommended metoprolol versus Cardizem. 2 -D echo reviewed from last admission which showed normal EF. At this time no recurrence of arrhythmias on telemetry or recurrent symptoms. We'll discharge home with follow-up with primary care physician and cardiology. Discharge patient to home Condition on discharge: Improved Regular Diet as tolerated Ad Jacquie activity Rx written: Metoprolol 25 mg by mouth twice a day Follow-up with primary care physician Robyn Faith MD Feb 27, 2017 11:41
[2017-02-27] MEDS ORDERED: METO25TA3 PO (11:43)
--- NOTE | 2017-02-27 11:54 | EKG ---
Date Performed: 02/26/2017 Time Performed: 19:16:18 PTAGE: 26 years EKG: Sinus rhythm WITH SHORT [place] INTERVAL BORDERLINE ECG Compared to prior tracing no significant change PREVIOUS TRACING : 02/26/2017 17.42.41 DOCTOR: Marcus Renee Interpretating Date/Time 02/27/2017 11:48:19
--- NOTE | 2017-02-27 11:55 | EKG ---
Date Performed: 02/26/2017 Time Performed: 17:42:41 PTAGE: 26 years EKG: Sinus rhythm NORMAL ECG Compared to prior tracing no significant change PREVIOUS TRACING 02/25/2017 05.37.15 DOCTOR: Marcus Renee Interpretating Date/Time 02/27/2017 11:48:40
== END 2017-02-27 13:24 | disposition home or self-care (01) ==
LOC: NEPD 12:46 → NEDA 19:02 → NEPHCDU 20:48
PROVIDERS: ADMIT Family Medicine; ATTEND Family Medicine
DX: I47.1 Supraventricular tachycardia (principal); R00.2 Palpitations; R42 Dizziness and giddiness; R61 Generalized hyperhidrosis; F17.200 Nicotine dependence, unspecified, uncomplicated
CPT/HCPCS: 71010; 93005; 99285; G0378

== ENCOUNTER 2017-03-01 17:51 | Emergency (ER) | payer MEDICAID ==
[~2017-03-01] VITALS: Ht 172.7 cm; Wt 72.5 kg
[~2017-03-01 17:51] MED LIST changes: -BACT800T5 PO; -CEPH500C3 PO; -IBUP800T23 PO; +METO25TA3 PO
[2017-03-01 17:54] VITALS: BP 142/76; PULSE 72; RESP 24; TEMP 97.6; O2SAT 100
[2017-03-01 18:08] VITALS: BP 119/76; PULSE 71; RESP 15; O2SAT 100
[2017-03-01] MEDS ORDERED: SODIUM CHLORIDE 0.9% FLUSH 10 ML FLUSH IVF PRN (18:15)
--- NOTE | 2017-03-01 18:20 | PD ---
HPI Chief Complaint: Cardiac Complaint Time Seen by Provider: 18:09 Travel History International Travel<30 days: No Contact w/Intl Traveler<30days: No Traveled to known affect area: No History of Present Illness HPI Patient comes into the emergency Department complaining of palpitations lasted for approximately 30 minutes that began shortly prior to coming emergency department. Patient states she's been seen here twice previously for this. Patient states she's been taking her metoprolol as prescribed for this, last dose at 1700 today. Patient's when she started noticing palpitations she checked her heart rate and was going up from 115 to 130s. Patient states she started applying ice to her face as previously instructed which would help bring down her heart rate however when she would stop this and would start going back up. Patient denies any associated chest pain, shortness breath, fevers, nausea, vomiting, headaches, dizziness,numbness or tingling anywhere, abdominal pain, or back pain. Patient denies anything making it worse. PFSH Past Medical History Blood Disorders: No Heart Rhythm Problems: Yes Cancer: No Cardiovascular Problems: Yes (SVT) Chemotherapy: No Diminished Hearing: No Endocrine: No Genitourinary: No Immune Disorder: No Musculoskeletal: No Neurologic: No Psychiatric: No Reproductive: No Respiratory: No Integumentary: Yes (cellulitis R outer leg ) Immunizations Current: Yes Radiation Therapy: No Tetanus Vaccination: Unknown Influenza Vaccination: No ?: Not LMP: 01/30/17 : 1 Para: 1 Past Surgical History Surgical History: No Previous Surgery Social History Alcohol Use: Yes (OCCASIONAL) Tobacco Use: No Substance Use: No Allergies-Medications (Allergen,Severity, Reaction): Coded Allergies: No Known Allergies (Unverified , 03/01/17) Reported Meds & Prescriptions Reported Meds & Active Scripts Active Metoprolol Tartrate 25 Mg Tab 25 Mg PO BID Review of Systems Except as stated in HPI: all other systems reviewed are Neg Physical Exam Narrative GENERAL: Well-developed, well nourished, in no acute distress, and non-ill appearing. SKIN: Focused skin assessment warm and dry. HEAD: Atraumatic. Normocephalic. EYES: Pupils equal and round. EOMI. No scleral icterus. No injection or drainage. ENT: No nasal bleeding or discharge. Mucous membranes pink and moist. NECK: Trachea midline. No JVD. Supple. No nuclear rigidity. CARDIOVASCULAR: Regular rate and rhythm. No murmur appreciated. RESPIRATORY: No accessory muscle use. No respiratory distress. Clear to auscultation. Breath sounds equal bilaterally. MUSCULOSKELETAL: No obvious deformities. No clubbing. No cyanosis. No edema. Full range of motion. NEUROLOGICAL: Awake and alert. No obvious cranial nerve deficits. Motor grossly within normal limits. Normal speech. PSYCHIATRIC: Appropriate mood and affect; insight and judgment normal. Data Data Last Documented VS Vital Signs Date Time Temp Pulse Resp B/P (MAP) Pulse Ox O2 Delivery O2 Flow Rate FiO2 03/01/17 18:28 100 Room Air 03/01/17 18:08 71 15 03/01/17 17:54 97.6 Orders Orders Electrocardiogram (03/01/17 ) Basic Metabolic Panel (Bmp) (03/01/17 18:13) Ckmb (Isoenzyme) Profile (03/01/17 18:13) Complete Blood Count With Diff (03/01/17 18:13) Magnesium (Mg) (03/01/17 18:13) Prothrombin Time / Inr (Pt) (03/01/17 18:13) Act Partial Throm Time (Ptt) (03/01/17 18:13) Troponin I (03/01/17 18:13) Ecg Monitoring (03/01/17 18:13) Bilateral Bp Monitoring (03/01/17 18:13) Iv Access Insert/Monitor (03/01/17 18:13) Oximetry (03/01/17 18:13) Oxygen Administration (03/01/17 18:13) Sodium Chloride 0.9% Flush (Ns Flush) (03/01/17 18:15) CKMB (03/01/17 18:25) CKMB% (03/01/17 18:25) Labs Laboratory Tests Test 03/01/17 18:25 White Blood Count 7.4 TH/MM3 Red Blood Count 4.18 MIL/MM3 Hemoglobin 14.0 GM/DL Hematocrit 40.2 % Mean Corpuscular Volume 96.0 FL Mean Corpuscular Hemoglobin 33.4 PG Mean Corpuscular Hemoglobin Concent 34.7 % Red Cell Distribution Width 12.9 % Platelet Count 259 TH/MM3 Mean Platelet Volume 8.0 FL Neutrophils (%) (Auto) 55.6 % Lymphocytes (%) (Auto) 29.6 % Monocytes (%) (Auto) 11.7 % Eosinophils (%) (Auto) 2.3 % Basophils (%) (Auto) 0.8 % Neutrophils # (Auto) 4.1 TH/MM3 Lymphocytes # (Auto) 2.2 TH/MM3 Monocytes # (Auto) 0.9 TH/MM3 Eosinophils # (Auto) 0.2 TH/MM3 Basophils # (Auto) 0.1 TH/MM3 CBC Comment DIFF FINAL Differential Comment Prothrombin Time 10.9 SEC Prothromb Time International Ratio 1.0 RATIO Activated Partial Thromboplast Time 22.8 SEC Blood Urea Nitrogen 15 MG/DL Creatinine 1.01 MG/DL Random Glucose 99 MG/DL Calcium Level 8.9 MG/DL Magnesium Level 2.1 MG/DL Sodium Level 137 MEQ/L Potassium Level 4.3 MEQ/L Chloride Level 105 MEQ/L Carbon Dioxide Level 24.9 MEQ/L Anion Gap 7 MEQ/L Estimat Glomerular Filtration Rate 79 ML/MIN Total Creatine Kinase 201 U/L Creatine Kinase MB 0.9 NG/ML Creatine Kinase MB % 0.4 % Troponin I LESS THAN 0.02 NG/ML MDM Medical Decision Making Medical Screen Exam Complete: Yes Emergency Medical Condition: Yes Interpretation(s) EKG reviewed by Dr. Valera shows sinus rhythm with a short [place] interval with a ventricular rate of 62. Questionable for LGL. No STEMI. Differential Diagnosis Electrolyte abnormality, acute coronary syndrome, SVT, dehydration, other Narrative Course Patient seen and examined. Initial laboratory studies were ordered. Patient was placed on court monitor and IV was established. Patient remained between 60-70 on the monitor while the emergency department. Patient advised to continue medications as previously prescribed and follow up with rn medical surgical. Discussed this with Dr. Valera prior discharge, who is in agreement with plan of care and disposition. Patient in no obvious distress upon re-evaluation. All pertinent laboratory result(s) discussed with patient. Any questions/concerns in reference to patient diagnosis/condition discussed and clarified prior to patient's discharge. Reinforced sheer importance of close follow up with patient's primary physician or primary care clinic and rn medical surgical. Instructed patient to return to ED immediately, if symptoms return/worsen. Pt showed understanding of above instructions. Further instructions and recommendations were detailed in discharge paperwork. Pt ambulated without difficulty out of ED at discharge. Diagnosis Primary Impression: SVT (supraventricular tachycardia) Patient Instructions: General Instructions, Supraventricular Tachycardia (ED), Tachycardia (ED) Additional Instructions: Follow-up with your primary care physician and rn medical surgical as previously instructed. Take all medication as previously prescribed. Return to the emergency department if symptoms get worse. Disposition: 01 DISCHARGE HOME Condition: Stable Sahil Loya Mar 01, 2017 18:20
[2017-03-01 18:28] VITALS: BP_SYST 119; BP_SYST 122; BP_DIAS 65; BP_DIAS 76; O2SAT 100
[2017-03-01 18:36] LABS: AUTOMATED NEUTROPHIL # 4.1 TH/MM3 (1.8-7.7); BASOPHIL # 0.1 TH/MM3 (0-0.2); BASOPHIL % 0.8 % (0.0-2.0); EOSINOPHIL # 0.2 TH/MM3 (0-0.4); EOSINOPHIL % 2.3 % (0.0-4.0); HEMATOCRIT 40.2 % (35.0-46.0); HEMO FLAGS DIFF FINAL; LYMPH % 29.6 % (9.0-44.0); LYMPHOCYTE # 2.2 TH/MM3 (1.0-4.8); MEAN CORPUSCULAR HEMOGLOBIN 33.4 PG (27.0-34.0); MEAN CORPUSCULAR HGB CONC 34.7 % (32.0-36.0); MONO % 11.7 % (0.0-8.0); NEUT % 55.6 % (16.0-70.0); PLATELET COUNT 259 TH/MM3 (150-450); RED BLOOD COUNT 4.18 MIL/MM3 (4.00-5.30); RED CELL DISTRIBUTION WIDTH 12.9 % (11.6-17.2); WHITE BLOOD COUNT 7.4 TH/MM3 (4.0-11.0)
[2017-03-01 18:46] LABS: APTT (PATIENT) 22.8 SEC (24.3-30.1); PROTHROMBIN TIME - PATIENT 10.9 SEC (9.8-11.6)
[2017-03-01 19:05] LABS: ANION GAP 7 MEQ/L (5-15); BICARBONATE 24.9 MEQ/L (21.0-32.0); BLOOD UREA NITROGEN 15 MG/DL (7-18); CHLORIDE 105 MEQ/L (98-107); CREATINE KINASE 201 U/L (26-192); GLOMERULAR FILTRATION RATE 79 ML/MIN (>89); MAGNESIUM 2.1 MG/DL (1.5-2.5); POTASSIUM 4.3 MEQ/L (3.5-5.1); SODIUM (NA) 137 MEQ/L (136-145)
[2017-03-01 19:18] LABS: CKMB 0.9 NG/ML (0.5-3.6)
[2017-03-01 20:59] VITALS: BP 121/70; PULSE 70; RESP 18; O2SAT 98
--- NOTE | 2017-03-02 14:33 | EKG ---
Date Performed: 03/01/2017 Time Performed: 18:38:07 PTAGE: 26 years EKG: Sinus rhythm WITH SHORT [place] INTERVAL WITH OCCASIONAL SUPRAVENTRICULAR PREMATURE COMPLEXES BORDERLINE ECG PREVIOUS TRACING : 02/26/2017 19.16 Compared to prior tracing no significant change DOCTOR: Carroll Dee Interpretating Date/Time 03/02/2017 14:27:12
== END 2017-03-01 21:00 | disposition home or self-care (01) ==
LOC: NEPE 17:51
DX: I47.1 Supraventricular tachycardia (principal); Z79.899 Other long term (current) drug therapy
CPT/HCPCS: 80048; 82550; 82552; 83735; 84484; 85025; 85610; 85730; 93005; 99284

== ENCOUNTER 2017-03-03 17:13 | Emergency (ER) | payer MEDICAID ==
[2017-03-03 17:22] VITALS: BP 117/81; PULSE 80; RESP 17; TEMP 98.2; O2SAT 100
--- NOTE | 2017-03-03 17:50 | PD ---
Physical Exam Time Seen by Provider: 17:47 Narrative 26yo F arrived via [facility] for known SVT. Had onset of increased HR at home. Tried to get it down and when she stood up to come to ER, her HR went up in to 200's so called [facility]. By the time [facility] arrived HR dropped down to 80's. Denies current symptoms of increased H, cheat pain , SOB. Feels tired. Patient seen in triage. VS reviewed. Patient awaiting bed placement. Data Data Last Documented VS Vital Signs Date Time Temp Pulse Resp B/P (MAP) Pulse Ox O2 Delivery O2 Flow Rate FiO2 03/03/17 17:22 98.2 80 17 117/81 (93) 100 Orders Orders Electrocardiogram (03/03/17 ) MDM Supervised Visit with KENDELL: Cuca Addison Mar 03, 2017 17:50
[2017-03-03 20:15] VITALS: BP 121/67; PULSE 63; RESP 16; O2SAT 100
[2017-03-03] MEDS ORDERED: SODIUM CHLORIDE 0.9% FLUSH 10 ML FLUSH IVF PRN (21:00)
--- NOTE | 2017-03-03 21:00 | PD ---
HPI Chief Complaint: Cardiac Complaint Time Seen by Provider: 20:15 Travel History International Travel<30 days: No Contact w/Intl Traveler<30days: No Traveled to known affect area: No History of Present Illness HPI Patient is a 18-year-old female presents emergency department for evaluation of palpitations. She states currently that resolved. She states at home she felt somewhat fatigued and dizzy that she took her heart rate and was in the 150s to 180s range. She states that time EMS arrived her heart rate had resolved. She states this happened to her in the past and she was once told that she had SVT and another time showed she had LGL. Patient states that she is unsure of her actual diagnosis never been caught on electrocardiogram. She states that she wore a Holter monitor before and it was unfruitful. She states she has an appointment coming up with Dr. Eduin Villagran but has not yet established with him. He denies any chest pain denies shortness of breath denies any history of blood clots. PFSH Past Medical History Medical History: Denies Significant Hx Blood Disorders: No Heart Rhythm Problems: Yes Cancer: No Cardiovascular Problems: Yes (SVT) Chemotherapy: No Diminished Hearing: No Endocrine: No Genitourinary: No Immune Disorder: No Musculoskeletal: No Neurologic: No Psychiatric: No Reproductive: No Respiratory: No Integumentary: Yes (cellulitis R outer leg ) Immunizations Current: Yes Radiation Therapy: No Tetanus Vaccination: < 5 Years Influenza Vaccination: Yes ?: Not : 1 Para: 1 Past Surgical History Surgical History: No Previous Surgery Social History Alcohol Use: No Tobacco Use: Yes Substance Use: No Allergies-Medications (Allergen,Severity, Reaction): Coded Allergies: No Known Allergies (Unverified , 03/03/17) Reported Meds & Prescriptions Reported Meds & Active Scripts Active Metoprolol Tartrate 25 Mg Tab 25 Mg PO BID Review of Systems Except as stated in HPI: all other systems reviewed are Neg Physical Exam Narrative GENERAL: Well-developed, thin in no obvious distress. SKIN: Focused skin assessment warm/dry. HEAD: Atraumatic. Normocephalic. EYES: Pupils equal and round. No scleral icterus. No injection or drainage. ENT: No nasal bleeding or discharge. Mucous membranes pink and moist. NECK: Trachea midline. No JVD. CARDIOVASCULAR: Regular rate and rhythm. No murmur appreciated. 2+ but equal pulses in all 4 tremors, no MGR. RESPIRATORY: No accessory muscle use. Clear to auscultation. Breath sounds equal bilaterally. GASTROINTESTINAL: Abdomen soft, non-tender, nondistended. Hepatic and splenic margins not palpable. MUSCULOSKELETAL: No obvious deformities. No clubbing. No cyanosis. No edema. NEUROLOGICAL: Awake and alert. No obvious cranial nerve deficits. Motor grossly within normal limits. Normal speech. PSYCHIATRIC: Appropriate mood and affect; insight and judgment normal. Data Data Last Documented VS Vital Signs Date Time Temp Pulse Resp B/P (MAP) Pulse Ox O2 Delivery O2 Flow Rate FiO2 03/04/17 00:14 69 16 105/52 (69) 100 03/03/17 22:21 Room Air 03/03/17 17:22 98.2 Orders Orders Electrocardiogram (03/03/17 ) Basic Metabolic Panel (Bmp) (03/03/17 20:50) Complete Blood Count With Diff (03/03/17 20:50) Magnesium (Mg) (03/03/17 20:50) Prothrombin Time / Inr (Pt) (03/03/17 20:50) Act Partial Throm Time (Ptt) (03/03/17 20:50) Troponin I (03/03/17 20:50) Ecg Monitoring (03/03/17 20:50) Bilateral Bp Monitoring (03/03/17 20:50) Iv Access Insert/Monitor (03/03/17 20:50) Oximetry (03/03/17 20:50) Oxygen Administration (03/03/17 20:50) Sodium Chloride 0.9% Flush (Ns Flush) (03/03/17 21:00) Thyroid Stimulating Hormone (03/03/17 20:50) Labs Laboratory Tests Test 03/03/17 21:15 White Blood Count 8.6 TH/MM3 Red Blood Count 4.19 MIL/MM3 Hemoglobin 13.5 GM/DL Hematocrit 39.8 % Mean Corpuscular Volume 95.0 FL Mean Corpuscular Hemoglobin 32.1 PG Mean Corpuscular Hemoglobin Concent 33.8 % Red Cell Distribution Width 12.8 % Platelet Count 279 TH/MM3 Mean Platelet Volume 8.0 FL Neutrophils (%) (Auto) 59.6 % Lymphocytes (%) (Auto) 25.4 % Monocytes (%) (Auto) 12.2 % Eosinophils (%) (Auto) 2.1 % Basophils (%) (Auto) 0.7 % Neutrophils # (Auto) 5.1 TH/MM3 Lymphocytes # (Auto) 2.2 TH/MM3 Monocytes # (Auto) 1.0 TH/MM3 Eosinophils # (Auto) 0.2 TH/MM3 Basophils # (Auto) 0.1 TH/MM3 CBC Comment DIFF FINAL Differential Comment Prothrombin Time 11.4 SEC Prothromb Time International Ratio 1.0 RATIO Activated Partial Thromboplast Time 25.7 SEC Blood Urea Nitrogen 15 MG/DL Creatinine 0.87 MG/DL Random Glucose 77 MG/DL Calcium Level 8.6 MG/DL Magnesium Level 2.2 MG/DL Sodium Level 137 MEQ/L Potassium Level 4.0 MEQ/L Chloride Level 106 MEQ/L Carbon Dioxide Level 24.3 MEQ/L Anion Gap 7 MEQ/L Estimat Glomerular Filtration Rate 94 ML/MIN Troponin I LESS THAN 0.02 NG/ML Thyroid Stimulating Hormone 3rd Gen 0.529 uIU/ML MDM Medical Decision Making Medical Screen Exam Complete: Yes Emergency Medical Condition: Yes Interpretation(s) EKG shows normal sinus rhythm normal axis progression. No concerning segment changes, intervals within normal limits. normal EKG Differential Diagnosis Arrhythmia, palpitations, PVCs, SVT, LGL, WPW. Narrative Course Patient roomed emergency department, she appears well and is quite pleasant. She is monitored on telemetry for some time and no arrhythmia was observed. Her EKG was reassuring. TSH was normal, troponin negative electrolytes within normal limits. I discussed with her that she needs follow-up with Dr. Villagran for consideration of a repeat Holter monitor. She verbalized understanding of this grateful for my assessment. She stable for discharge. Diagnosis Primary Impression: Palpitations Referrals: Vernon Villagran DO Disposition: 01 DISCHARGE HOME Condition: Stable Stewart Quiñones MD Mar 03, 2017 21:00
[2017-03-03 21:30] LABS: AUTOMATED NEUTROPHIL # 5.1 TH/MM3 (1.8-7.7); BASOPHIL # 0.1 TH/MM3 (0-0.2); BASOPHIL % 0.7 % (0.0-2.0); EOSINOPHIL # 0.2 TH/MM3 (0-0.4); EOSINOPHIL % 2.1 % (0.0-4.0); HEMATOCRIT 39.8 % (35.0-46.0); HEMO FLAGS DIFF FINAL; LYMPH % 25.4 % (9.0-44.0); LYMPHOCYTE # 2.2 TH/MM3 (1.0-4.8); MEAN CORPUSCULAR HEMOGLOBIN 32.1 PG (27.0-34.0); MEAN CORPUSCULAR HGB CONC 33.8 % (32.0-36.0); MONO % 12.2 % (0.0-8.0); NEUT % 59.6 % (16.0-70.0); PLATELET COUNT 279 TH/MM3 (150-450); RED BLOOD COUNT 4.19 MIL/MM3 (4.00-5.30); RED CELL DISTRIBUTION WIDTH 12.8 % (11.6-17.2); WHITE BLOOD COUNT 8.6 TH/MM3 (4.0-11.0)
[2017-03-03 21:40] LABS: APTT (PATIENT) 25.7 SEC (24.3-30.1); PROTHROMBIN TIME - PATIENT 11.4 SEC (9.8-11.6)
[2017-03-03 21:43] LABS: ANION GAP 7 MEQ/L (5-15); BICARBONATE 24.3 MEQ/L (21.0-32.0); BLOOD UREA NITROGEN 15 MG/DL (7-18); CHLORIDE 106 MEQ/L (98-107); GLOMERULAR FILTRATION RATE 94 ML/MIN (>89); MAGNESIUM 2.2 MG/DL (1.5-2.5); SODIUM (NA) 137 MEQ/L (136-145)
[2017-03-03 22:11] VITALS: O2SAT 99
[2017-03-03 22:21] VITALS: BP 120/80; PULSE 85; RESP 16; O2SAT 10; O2SAT 100
[2017-03-04 00:14] VITALS: BP 105/52
--- NOTE | 2017-03-04 17:13 | EKG ---
Date Performed: 03/03/2017 Time Performed: 18:17:00 PTAGE: 26 years EKG: Sinus rhythm WITH SHORT [place] INTERVAL Since previous tracing, no significant change noted BORDERLINE ECG PREVIOUS TRACING : 03/01/2017 18.38 DOCTOR: Alyssa Leonard Interpretating Date/Time 03/04/2017 17:06:58
== END 2017-03-04 00:24 | disposition home or self-care (01) ==
LOC: NEPD 17:13
DX: R00.2 Palpitations (principal); I47.1 Supraventricular tachycardia; R42 Dizziness and giddiness; R53.1 Weakness; R53.83 Other fatigue; Z72.0 Tobacco use
CPT/HCPCS: 80048; 83735; 84443; 84484; 85025; 85610; 85730; 93005; 99284

== ENCOUNTER 2017-03-12 00:59 | Emergency (ER) | payer MEDICAID ==
[2017-03-12 01:01] VITALS: BP 122/66; PULSE 63; RESP 18; TEMP 98.3; O2SAT 100
[2017-03-12 01:14] VITALS: BP_SYST 115; BP_SYST 117; BP_SYST 118; BP_DIAS 65; BP_DIAS 66; BP_DIAS 69; RESP 16
--- NOTE | 2017-03-12 01:48 | PD ---
HPI Chief Complaint: Dizziness Time Seen by Provider: 01:08 Travel History International Travel<30 days: No Contact w/Intl Traveler<30days: No Traveled to known affect area: No History of Present Illness HPI The patient is a 26 year old female who presents to the [facility] emergency department with a history of palpitations that she reports began around 10:30 PM when she tried to go to sleep. The patient reports that she tried changing her position in bed and then sitting up on the couch, however nothing seemed to help. She reports that she felt dizzy/lightheaded. She reports that she then decided to come to the emergency department. The patient has a recent history of being diagnosed with SVT with recurrent palpitations, admitted to the hospital twice related to this at the end of February. The patient was placed on metoprolol and has been taking this consistently. She reports that she went to a primary care physician for follow-up today. She was told that her heartbeat sounded irregular during the physical exam portion of the patient's evaluation. The patient was told that she would need some laboratory studies done. She reports that she is waiting have a laboratory studies done until she acquired Medicaid she denies having any shortness of breath or chest pain. She denies having any nausea, vomiting, or recent diarrhea. She reports that she did have a couple of hours of diarrhea approximately a week ago. On review of systems otherwise she denies having any fevers, cough, congestion, neck pain, abdominal pain, urinary symptoms, or neurologic symptoms. The patient reports that she quit smoking 2 weeks ago. She denies ingesting any caffeine. She denies drinking alcohol for the last 2 weeks. LMP: March 05, 2017 [facility] Past Medical History Narrative Medical The patient's past medical history is significant for palpitations, SVT Blood Disorders: No Heart Rhythm Problems: Yes (SVT ) Cancer: No Cardiovascular Problems: Yes (SVT) Chemotherapy: No Diminished Hearing: No Endocrine: No Genitourinary: No Immune Disorder: No Musculoskeletal: No Neurologic: No Psychiatric: No Reproductive: No Respiratory: No Integumentary: Yes (cellulitis R outer leg ) Immunizations Current: Yes Radiation Therapy: No Tetanus Vaccination: Unknown ?: Not : 1 Para: 1 Past Surgical History Narrative Surgical The patient denies any past surgical history. Surgical History: No Previous Surgery Social History Alcohol Use: No Tobacco Use: No (the patient reports that she quit smoking 2 weeks ago) Substance Use: No Allergies-Medications (Allergen,Severity, Reaction): Coded Allergies: No Known Allergies (Unverified , 03/12/17) Reported Meds & Prescriptions Reported Meds & Active Scripts Active Metoprolol Tartrate 25 Mg Tab 25 Mg PO BID Review of Systems Except as stated in HPI: all other systems reviewed are Neg General / Constitutional: No: Fever, Chills, Weight Gain, Weight Loss, Other Eyes: No: Visual changes HENT: Positive: Lightheadedness, No: Headaches Cardiovascular: Positive: Palpitations, No: Chest Pain or Discomfort Respiratory: No: Shortness of Breath Gastrointestinal: No: Nausea, Vomiting, Diarrhea, Abdominal Pain Genitourinary: No: Dysuria Musculoskeletal: No: Pain Skin: No Rash Neurologic: Positive: Dizziness, No: Weakness, Focal Abnormalities, Change in Mentation, Slurred Speech, Sensory Disturbance Psychiatric: No: Depression Endocrine: No: Polydipsia Hematologic/Lymphatic: No: Easy Bruising Physical Exam Narrative General: The patient is a well-developed well-nourished female in no acute distress. Head and Neck exam: Head is normocephalic atraumatic. Eyes: EOMI, pupils are equal round and reactive to light. Nose: Midline septum with pink mucous membranes Mouth: Dentition unremarkable. Moist mucus membranes. Posterior oropharynx is not erythematous. No tonsillar hypertrophy. Uvula midline. Airway patent. Neck: No palpable lymphadenopathy. No nuchal rigidity. No thyromegaly. Cardiovascular: Regular rate and rhythm without murmurs, gallops, or rubs. No pulse deficit to the extremities and simultaneous auscultation and palpation of her radial artery. Lungs: Clear to auscultation bilaterally. No wheezes, rhonchi, or rales. Abdomen: Soft, without tenderness to palpation in all 4 quadrants of the abdomen. No guarding, rebound, or rigidity. Normal bowel sounds are audible. No tenderness on palpation of McBurney's point. Extremities: No clubbing, cyanosis, or edema. 2+ pulses in all 4 extremities. No calf tenderness on palpation. Back: No spinous process tenderness to palpation. No costovertebral angle tenderness to palpation. Neurologic Exam: Grossly nonfocal. Skin Exam: No rash noted. Intact skin that is warm and dry. Data Data Last Documented VS Vital Signs Date Time Temp Pulse Resp B/P (MAP) Pulse Ox O2 Delivery O2 Flow Rate FiO2 03/12/17 01:01 98.3 63 18 122/66 (84) 100 Orders Orders Electrocardiogram (03/12/17 01:23) Orthostatic Vital Signs (03/12/17 01:23) MDM Medical Decision Making Medical Screen Exam Complete: Yes Emergency Medical Condition: Yes Medical Record Reviewed: Yes Differential Diagnosis Recurrent SVT, versus PACs, versus PVCs, versus anxiety, versus orthostasis Narrative Course During the course of the patients emergency department visit, the patients history, examination, and differential diagnosis were reviewed with the patient. The patient had orthostatic vital signs done, an ECG was ordered. The patient was placed on a cardiac sonographer with oximetry and blood pressure monitoring. The patient's electronic medical record was reviewed. The patient had a thorough workup done at this facility with blood work done on February 24, , , and again on March 03. The patient had a TSH that was within normal limits on March 03, cardiac enzymes that were within normal limits on the , no electrolyte abnormalities were noted. The patient had a d-dimer that was 0.31 on February 24 related to these symptoms decreasing the likelihood of pulmonary embolism in this patient with no other significant risk factors. The patient's orthostatic vital signs were within normal limits. An ECG was done. The patient's ECG shows sinus bradycardia with a heart rate of 59, no acute ST segment elevation or depression, QRS duration is 80 ms, QTC 383 ms. The patient's vital signs are within normal limits. The patient's examination is within normal limits. The patient was reassured regarding her symptoms. The patient was instructed to continue with her follow-up as an outpatient with her primary care physician for laboratory studies as well as a referral to the [facility] as recommended by both the inpatient team as well as her primary care physician earlier today. The patient is resting comfortably and feels better, is alert and in no distress. The patients results and examination findings were discussed with the patient. The repeat examination is unremarkable and benign. The history, exam, diagnostic testing, and current condition do not suggest any significant pathology to warrant further testing, continued ED treatment, admission, or surgical evaluation at this point. The vital signs have been stable. The patient does not have uncontrollable pain, intractable vomiting, or other significant symptoms. The patient's condition is stable and appropriate for discharge. The patient will pursue further outpatient evaluation with a primary care physician or other designated or consulting physician as indicated in the discharge instructions. The patient expressed understanding and was agreeable with this plan. Diagnosis Primary Impression: Intermittent palpitations Referrals: [facility] [facility] call for appointment Primary Care Physician 3 days Patient Instructions: General Instructions, Heart Palpitations (ED) Med/Other Pt SpecificInfo: Prescription(s) given Disposition: 01 DISCHARGE HOME Condition: Stable Ann Marie Landaverde MD Mar 12, 2017 01:48
--- NOTE | 2017-03-12 12:47 | EKG ---
Date Performed: 03/12/2017 Time Performed: 01:35:41 PTAGE: 26 years EKG: SINUS BRADYCARDIA BORDERLINE ECG PREVIOUS TRACING : 03/03/2017 18.17 DOCTOR: Jose Raul Londono Interpretating Date/Time 03/12/2017 12:44:13
== END 2017-03-12 02:13 | disposition home or self-care (01) ==
LOC: NEPC 00:59
DX: R00.2 Palpitations (principal); Z87.891 Personal history of nicotine dependence
CPT/HCPCS: 93005

== ENCOUNTER 2017-03-23 01:16 | Emergency (ER) | payer MEDICAID ==
[~2017-03-23] VITALS: Ht 172.7 cm; Wt 69.0 kg
[2017-03-23 01:18] VITALS: BP 149/70; PULSE 69; RESP 16; TEMP 98.6; O2SAT 100
--- NOTE | 2017-03-23 04:39 | PD ---
HPI Chief Complaint: Cardiac Complaint Time Seen by Provider: 02:46 Travel History International Travel<30 days: No Contact w/Intl Traveler<30days: No Traveled to known affect area: No History of Present Illness HPI The patient is a 26 year old female who presents to the [facility] emergency department with a history of chest pain that she reports as a tightening sensation and located in the center of her chest, radiating to the right side of her chest that began on Thursday. The patient reports the pain comes and goes. The patient reports that the pain at times has been a 10 out of 10 in severity. She reports that currently it is a 5 out of 10 in severity. She reports that it recurred at approximate 10:30 PM tonight and was quite severe, therefore she decided to come to the emergency department. The patient reports a recent history of recurrent palpitations and a diagnosis of SVT. The patient denies having any history of coronary artery disease. She does have a family history of cardiac disease in her mother. She reports that she's never had a stress test done previously. The patient recently when she was diagnosed with SVT was started on metoprolol. She reports that she has been taking this regularly. The patient denies having any shortness of breath, nausea, vomiting , or diaphoresis associated with her chest pain. She denies having any history of hypertension, hyperlipidemia, or diabetes mellitus. When she first started having palpitations 3 weeks ago she quit smoking. Otherwise on review of systems, she denies any recent fevers, cough, congestion, neck pain, abdominal pain, diarrhea, urinary symptoms, or neurologic symptoms. Regarding the patient 's palpitations she reports that she continues to have them occasionally, usually 1-2 times per week. She denies having any currently. [facility] Past Medical History Narrative Medical The patient's past medical history is significant for palpitations, SVT, history of tobacco use. Blood Disorders: No Heart Rhythm Problems: Yes (SVT ) Cancer: No Cardiovascular Problems: Yes (SVT) Chemotherapy: No Diminished Hearing: No Endocrine: No Genitourinary: No Immune Disorder: No Musculoskeletal: No Neurologic: No Psychiatric: No Reproductive: No Respiratory: No Integumentary: Yes (cellulitis R outer leg ) Immunizations Current: Yes Radiation Therapy: No ?: Not : 1 Para: 1 Past Surgical History Narrative Surgical The patient's past surgical history is reportedly none. Social History Alcohol Use: No Tobacco Use: No (the patient reports that she quit smoking 2 weeks ago) Substance Use: No Allergies-Medications (Allergen,Severity, Reaction): Coded Allergies: No Known Allergies (Unverified , 03/23/17) Reported Meds & Prescriptions Reported Meds & Active Scripts Active Metoprolol Tartrate 25 Mg Tab 25 Mg PO BID Review of Systems Except as stated in HPI: all other systems reviewed are Neg General / Constitutional: No: Fever Eyes: No: Visual changes HENT: No: Headaches, Rhinorrhea, Congestion Cardiovascular: Positive: Chest Pain or Discomfort, Palpitations, No: Dyspnea on exertion Respiratory: No: Cough, Shortness of Breath Gastrointestinal: No: Abdominal Pain Genitourinary: No: Dysuria Musculoskeletal: No: Pain Skin: No Rash Neurologic: No: Weakness Psychiatric: No: Depression Endocrine: No: Polydipsia Hematologic/Lymphatic: No: Easy Bruising Physical Exam Narrative General: The patient is a well-developed well-nourished female in no acute distress. Head and Neck exam: Head is normocephalic atraumatic. Eyes: EOMI, pupils are equal round and reactive to light. Nose: Midline septum with pink mucous membranes Mouth: Dentition unremarkable. Moist mucus membranes. Posterior oropharynx is not erythematous. No tonsillar hypertrophy. Uvula midline. Airway patent. Neck: No palpable lymphadenopathy. No nuchal rigidity. No thyromegaly. Cardiovascular: Sinus bradycardia in the upper 50s without murmurs, gallops, or rubs. No pulse deficit to the extremities on simultaneous auscultation and palpation of her radial artery. Lungs: Clear to auscultation bilaterally. No wheezes, rhonchi, or rales. Abdomen: Soft, without tenderness to palpation in all 4 quadrants of the abdomen. No guarding, rebound, or rigidity. Normal bowel sounds are audible. No tenderness on palpation of McBurney's point. Extremities: No clubbing, cyanosis, or edema. 2+ pulses in all 4 extremities. No calf tenderness on palpation. Back: No costovertebral angle tenderness to palpation. Neurologic Exam: Grossly nonfocal. Skin Exam: No rash noted. Intact skin that is warm and dry. Data Data Last Documented VS Vital Signs Date Time Temp Pulse Resp B/P (MAP) Pulse Ox O2 Delivery O2 Flow Rate FiO2 03/23/17 05:03 100 Room Air 03/23/17 05:03 03/23/17 01:18 98.6 69 16 Orders Orders Electrocardiogram (03/23/17 02:47) Electrocardiogram (03/23/17 04:34) B-Type Natriuretic Peptide (03/23/17 04:34) Ckmb (Isoenzyme) Profile (03/23/17 04:34) Complete Blood Count With Diff (03/23/17 04:34) Comprehensive Metabolic Panel (03/23/17 04:34) Magnesium (Mg) (03/23/17 04:34) Prothrombin Time / Inr (Pt) (03/23/17 04:34) Act Partial Throm Time (Ptt) (03/23/17 04:34) Troponin I (03/23/17 04:34) Lipase (03/23/17 04:34) Chest, Single Ap (03/23/17 04:34) Ecg Monitoring (03/23/17 04:34) Bilateral Bp Monitoring (03/23/17 04:34) Iv Access Insert/Monitor (03/23/17 04:34) Oximetry (03/23/17 04:34) Oxygen Administration (03/23/17 04:34) Aspirin Chew (Aspirin Chew) (03/23/17 04:45) Sodium Chloride 0.9% Flush (Ns Flush) (03/23/17 04:45) Ed Urine Pregnancytest Poc (03/23/17 04:34) Admit Order (Ed Use Only) (03/23/17 05:12) CKMB (03/23/17 04:55) CKMB% (03/23/17 04:55) Labs Laboratory Tests Test 03/23/17 04:55 White Blood Count 7.3 TH/MM3 Red Blood Count 4.05 MIL/MM3 Hemoglobin 13.0 GM/DL Hematocrit 37.6 % Mean Corpuscular Volume 92.9 FL Mean Corpuscular Hemoglobin 32.1 PG Mean Corpuscular Hemoglobin Concent 34.6 % Red Cell Distribution Width 12.6 % Platelet Count 275 TH/MM3 Mean Platelet Volume 7.6 FL Neutrophils (%) (Auto) 59.6 % Lymphocytes (%) (Auto) 27.6 % Monocytes (%) (Auto) 10.0 % Eosinophils (%) (Auto) 1.8 % Basophils (%) (Auto) 1.0 % Neutrophils # (Auto) 4.4 TH/MM3 Lymphocytes # (Auto) 2.0 TH/MM3 Monocytes # (Auto) 0.7 TH/MM3 Eosinophils # (Auto) 0.1 TH/MM3 Basophils # (Auto) 0.1 TH/MM3 CBC Comment DIFF FINAL Differential Comment Prothrombin Time 11.4 SEC Prothromb Time International Ratio 1.0 RATIO Activated Partial Thromboplast Time 25.5 SEC Blood Urea Nitrogen 10 MG/DL Creatinine 0.87 MG/DL Random Glucose 78 MG/DL Total Protein 7.4 GM/DL Albumin 4.0 GM/DL Calcium Level 8.8 MG/DL Magnesium Level 2.1 MG/DL Alkaline Phosphatase 49 U/L Aspartate Amino Transf (AST/SGOT) 14 U/L Alanine Aminotransferase (ALT/SGPT) 19 U/L Total Bilirubin 2.1 MG/DL Sodium Level 140 MEQ/L Potassium Level 3.6 MEQ/L Chloride Level 106 MEQ/L Carbon Dioxide Level 26.3 MEQ/L Anion Gap 8 MEQ/L Estimat Glomerular Filtration Rate 94 ML/MIN Total Creatine Kinase 105 U/L Troponin I LESS THAN 0.02 NG/ML Lipase 63 U/L MDM Medical Decision Making Medical Screen Exam Complete: Yes Emergency Medical Condition: Yes Medical Record Reviewed: Yes Differential Diagnosis Acute coronary syndrome, versus anxiety disorder, versus acid reflux, versus pneumonia Narrative Course During the course of the patients emergency department visit, the patients history, examination, and differential diagnosis were reviewed with the patient. The patient had IV access obtained and blood work sent for analysis. The patient was placed on a environmental monitoring specialist with oximetry and blood pressure monitoring. An ECG was done on arrival. The patient's ECG reveals a sinus bradycardia with a short MA interval, heart rate of 59, no acute ST segment elevation or depression, T waves are inverted in V1, QRS duration is 76 ms, QTC 405 ms. The patient was initially provided aspirin 324 mg by mouth 1. The patients laboratory studies were reviewed and remarkable for a CBC with a white count of 7.3, hemoglobin 13, platelets 275 with a monocytosis at 10, CMP is remarkable for total bilirubin is 2.1, AST 14, CPK 105, troponin I less than 0.02, BNP 3, lipase 63, PT and PTT within normal limits Radiology studies were reviewed and remarkable for a chest x-ray that shows no acute cardiopulmonary disease. Given the patient's new symptoms of chest pain and family history of heart disease reportedly in her mother. The patient will be admitted to the chest pain center for rule out serial cardiac enzyme protocol, and consideration of stress testing. The patients results were discussed with the patient, including the plan of care. I explained that further testing and/ or monitoring is indicated based on the patients history, examination, and/ or laboratory findings. Therefore, I recommended admission for additional evaluation. The patient expressed understanding and was agreeable with this plan. The patient was admitted to the hospital in stable condition and sent to a bed under the care of the chest pain center. Diagnosis Primary Impression: Chest pain, rule out acute myocardial infarction Admitting Information Admitting Physician Requests: Ann Marie Castillo MD Mar 23, 2017 04:39
[2017-03-23] MEDS ORDERED: SODIUM CHLORIDE 0.9% FLUSH 10 ML FLUSH IVF PRN (04:45)
[2017-03-23] MEDS ORDERED: ASPIRIN 81 MG CHEW TAB PO ONE (04:45)
[2017-03-23 05:03] VITALS: O2SAT 100
[2017-03-23 05:07] LABS: AUTOMATED NEUTROPHIL # 4.4 TH/MM3 (1.8-7.7); BASOPHIL # 0.1 TH/MM3 (0-0.2); EOSINOPHIL # 0.1 TH/MM3 (0-0.4); EOSINOPHIL % 1.8 % (0.0-4.0); HEMATOCRIT 37.6 % (35.0-46.0); HEMO FLAGS DIFF FINAL; LYMPH % 27.6 % (9.0-44.0); MEAN CELL VOLUME 92.9 FL (80.0-100.0); MEAN CORPUSCULAR HEMOGLOBIN 32.1 PG (27.0-34.0); MEAN CORPUSCULAR HGB CONC 34.6 % (32.0-36.0); NEUT % 59.6 % (16.0-70.0); PLATELET COUNT 275 TH/MM3 (150-450); RED BLOOD COUNT 4.05 MIL/MM3 (4.00-5.30); RED CELL DISTRIBUTION WIDTH 12.6 % (11.6-17.2); WHITE BLOOD COUNT 7.3 TH/MM3 (4.0-11.0)
[2017-03-23 05:16] LABS: APTT (PATIENT) 25.5 SEC (24.3-30.1); PROTHROMBIN TIME - PATIENT 11.4 SEC (9.8-11.6)
[2017-03-23 05:25] VITALS: BP_SYST 122; BP_SYST 124; BP_DIAS 56; BP_DIAS 58; PULSE 59; PULSE 60; RESP 16; O2SAT 100
[2017-03-23 05:27] LABS: ALT (GPT) 19 U/L (10-53); ANION GAP 8 MEQ/L (5-15); AST (GOT) 14 U/L (15-37); BICARBONATE 26.3 MEQ/L (21.0-32.0); BLOOD UREA NITROGEN 10 MG/DL (7-18); CHLORIDE 106 MEQ/L (98-107); GLOMERULAR FILTRATION RATE 94 ML/MIN (>89); MAGNESIUM 2.1 MG/DL (1.5-2.5); POTASSIUM 3.6 MEQ/L (3.5-5.1); SODIUM (NA) 140 MEQ/L (136-145)
[2017-03-23 05:30] LABS: ALKALINE PHOSPHATASE 49 U/L (45-117); CREATINE KINASE 105 U/L (26-192); TOTAL BILIRUBIN ADULT 2.1 MG/DL (0.2-1.0)
[2017-03-23 05:42] LABS: CKMB 0.6 NG/ML (0.5-3.6)
--- NOTE | 2017-03-23 05:58 | RADRPT ---
EXAM DATE/TIME: 03/23/2017 04:55 [facility] COMPARISON: CHEST SINGLE AP, February 26, 2017, 17:29. INDICATIONS : Palpitations. MEDICAL HISTORY : None. SURGICAL HISTORY : None. ENCOUNTER: Initial ACUITY: 1 day PAIN SCORE: 1/10 LOCATION: Bilateral chest FINDINGS: A single view of the chest demonstrates the lungs to be symmetrically aerated without evidence of mas s, infiltrate or effusion. The cardiomediastinal contours are unremarkable. Osseous structures are intact. CONCLUSION: Normal examination. Brent Resendiz Jr., MD on March 23, 2017 at 5:57 Board Certified Radiologist. This report was verified electronically.
[2017-03-23 06:00] VITALS: O2SAT 100
[2017-03-23] MEDS ORDERED: SODIUM CHLORIDE 0.9% FLUSH 10 ML FLUSH IV FLUSH PRN (06:15)
[2017-03-23 07:05] VITALS: BP 98/55; PULSE 64; RESP 16; RESP 17; TEMP 97.8; O2SAT 100
[2017-03-23 08:46] LABS: CREATINE KINASE 96 U/L (26-192)
[2017-03-23] MEDS ORDERED: SODIUM CHLORIDE 0.9% FLUSH 10 ML FLUSH IV FLUSH SCH (09:00)
--- NOTE | 2017-03-23 10:22 | HHI.HP ---
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 Onset Thursday afternoon, she had intermittent chest tightness. Last evening 10 PM and midnight chest tightness was constant. Followed with 2 hours of palpitations. No associated symptoms of nausea, vomiting, shortness of breath, or diaphoresis. No recent illness, cough, or sputum production. She has been taking her beta marysol twice daily since February, continues to have intermittent palpitations. Tolerating beta marysol well other than complaint of fatigue. Review of Systems General: Fatigue since starting beta marysol, stating she is easily fatigued after only 6 hours of work. No weakness, fever, chills, or recent illness. HEENT: No GUO, no nasal congestion or drainage CV: No current chest pain or pressure. No palpitations since admission to hospital. No dizziness. RESP: No SOB, cough, sputum production, or recent URI. GI: No nausea, vomiting, or bowel changes. : No dysuria, urgency, or frequency MS: No discomfort or change in ROM NEURO: No change in memory, dizziness, difficulty with balance, LOC, motor/ sensory deficits PSYCH: No anxiety, depression, situational stress SKIN: No rashes, no concerning lesions Past Family Social History Allergies: Coded Allergies: No Known Allergies (Unverified , 03/23/17) Past Medical History Cahn-Lrzpxp-Hgvlaf syndrome, SVT, palpitations Past Surgical History None Reported Medications Reported Meds & Active Scripts Active Metoprolol Tartrate 25 Mg Tab 25 Mg PO BID Active Ordered Medications Current Medications Medications (Trade) Dose Ordered Sig/Екатерина Route Start Time Stop Time Status Last Admin (NS Flush) 2 ml UNSCH PRN IVF 03/23/17 04:45 03/23/17 05:14 (NS Flush) 2 ml UNSCH PRN IV FLUSH 03/23/17 06:15 (NS Flush) 2 ml BID IV FLUSH 03/23/17 09:00 03/23/17 07:53 Social History No known hypertension, diabetes, or hyperlipidemia. Recently quit smoking. Denies any alcohol or illegal drug use. 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 [employer] Past cardiac testing None Physical Exam Vital Signs Vital Signs Date Time Temp Pulse Resp B/P (MAP) Pulse Ox O2 Delivery O2 Flow Rate FiO2 03/23/17 07:05 Room Air 03/23/17 07:05 16 100 Room Air 03/23/17 07:05 97.8 64 17 98/55 (69) 100 Room Air 03/23/17 07:05 64 17 100 Room Air 03/23/17 06:00 100 03/23/17 05:25 60 16 122/56 (78) 100 Room Air 03/23/17 05:25 59 16 124/58 (80) 100 Room Air 03/23/17 05:03 100 Room Air 03/23/17 05:03 100 03/23/17 01:18 98.6 69 16 149/70 (96) 100 Room Air Physical Exam GENERAL: Alert WN, WD, NAD, pleasant, female HEAD: NC, AT EYES: Sclera clear, conjunctiva without injection, pupils equal and round ENT: Mucous membranes pink and moist CV: RRR, without murmur, rub, gallop, no JVD, S1-S2 no S3-S4. RESP: Clear lungs throughout bilateral, no crackles, wheeze, rhonchi, symmetrical chest rise, nonlabored, able to speak in full sentences ABD: Soft, NT, ND, no masses, positive bowel tones EXT: Pulses +24, no dependent edema MS: Normal tone 4 extremities, nontender, no obvious deformities, full range of motion NEURO: CN II through CN XII grossly intact, motor strength 5/5, gait WNL PSYCH: A+O 3, pleasant affect, appropriate speech, appropriate mood and affect , insight and judgment SKIN: Normal turgor, normal texture, no lesions, no rashes, brisk cap refill, even hair distribution Laboratory Laboratory Tests Test 03/23/17 04:55 03/23/17 08:00 White Blood Count 7.3 Red Blood Count 4.05 Hemoglobin 13.0 Hematocrit 37.6 Mean Corpuscular Volume 92.9 Mean Corpuscular Hemoglobin 32.1 Mean Corpuscular Hemoglobin Concent 34.6 Red Cell Distribution Width 12.6 Platelet Count 275 Mean Platelet Volume 7.6 Neutrophils (%) (Auto) 59.6 Lymphocytes (%) (Auto) 27.6 Monocytes (%) (Auto) 10.0 Eosinophils (%) (Auto) 1.8 Basophils (%) (Auto) 1.0 Neutrophils # (Auto) 4.4 Lymphocytes # (Auto) 2.0 Monocytes # (Auto) 0.7 Eosinophils # (Auto) 0.1 Basophils # (Auto) 0.1 CBC Comment DIFF FINAL Differential Comment Prothrombin Time 11.4 Prothromb Time International Ratio 1.0 Activated Partial Thromboplast Time 25.5 Blood Urea Nitrogen 10 Creatinine 0.87 Random Glucose 78 Total Protein 7.4 Albumin 4.0 Calcium Level 8.8 Magnesium Level 2.1 Alkaline Phosphatase 49 Aspartate Amino Transf (AST/SGOT) 14 Alanine Aminotransferase (ALT/SGPT) 19 Total Bilirubin 2.1 Sodium Level 140 Potassium Level 3.6 Chloride Level 106 Carbon Dioxide Level 26.3 Anion Gap 8 Estimat Glomerular Filtration Rate 94 Total Creatine Kinase 105 96 Creatine Kinase MB 0.6 Troponin I LESS THAN 0.02 LESS THAN 0.02 B-Type Natriuretic Peptide 3 Lipase 63 Result Diagram: 03/23/175 03/23/17 0455 Imaging Last Impressions Chest X-Ray 03/23/17 0434 Signed Impressions: Service Date/Time: Thursday, March 23, 2017 04:55 - CONCLUSION: Normal examination. Brent Resendiz Jr., MD Course EKG Normal sinus rhythm, normal axis, no ST or T-segment changes-NV interval shortened suggesting LGL syndrome Caprini VTE Risk Assessment Caprini VTE Risk Assessment: No/Low Risk (score <= 1) Caprini Risk Assessment Model Point Value = 1 Point Value = 2 Point Value = 3 Point Value = 5 Age 41-60 Minor surgery BMI > 25 kg/m2 Swollen legs Varicose veins or History of unexplained or recurrent spontaneous Oral contraceptives or hormone replacement Sepsis (< 1 month) Serious lung disease, including pneumonia (< 1 month) Abnormal pulmonary function Acute myocardial infarction Congestive heart failure (< 1 month) History of inflammatory bowel disease Medical patient at bed rest Age 61-74 Arthroscopic surgery Major open surgery (> 45 min) Laparoscopic surgery (> 45 min) Malignancy Confined to bed (> 72 hours) Immobilizing plaster cast Central venous access Age >= 75 History of VTE Family history of VTE Factor V Leiden Prothrombin [id number] Lupus anticoagulant Anticardiolipin antibodies Elevated serum homocysteine Heparin-induced thrombocytopenia Other congenital or acquired thrombophilia Stroke (< 1 month) Elective arthroplasty Hip, pelvis, or leg fracture Acute spinal cord injury (< 1 month) Prophylaxis Regimen Total Risk Factor Score Risk Level Prophylaxis Regimen 0-1 Low Early ambulation 2 Moderate Order ONE of the following: *Sequential Compression Device (SCD) *Heparin 5000 units SQ BID 3-4 Higher Order ONE of the following medications: *Heparin 5000 units SQ TID *Enoxaparin/Lovenox 40 mg SQ daily (WT < 150 kg, CrCl > 30 mL/min) *Enoxaparin/Lovenox 30 mg SQ daily (WT < 150 kg, CrCl > 10-29 mL/min) *Enoxaparin/Lovenox 30 mg SQ BID (WT < 150 kg, CrCl > 30 mL/min) AND/OR *Sequential Compression Device (SCD) 5 or more Highest Order ONE of the following medications: *Heparin 5000 units SQ TID (Preferred with Epidurals) *Enoxaparin/Lovenox 40 mg SQ daily (WT < 150 kg, CrCl > 30 mL/min) *Enoxaparin/Lovenox 30 mg SQ daily (WT < 150 kg, CrCl > 10-29 mL/min) *Enoxaparin/Lovenox 30 mg SQ BID (WT < 150 kg, CrCl > 30 mL/min) AND *Sequential Compression Device (SCD) Assessment and Plan Assessment and Plan #1 Atypical chest pain-admitted to chest pain center. Ruled out with 2 sets of EKGs and cardiac enzymes. Seen and evaluated by Dr. Tino Heart. Patient is known to Dr. Heart. Will proceed with exercise stress test. If unremarkable will discharge home, discontinuing her beta marysol, changing antiarrhythmic to flecainide 50 mg BID. Follow-up with Dr. Heart in his office in 2 weeks. Patient agreeable to plan of care. #2 Tobacco use-encouraged her to continue smoking cessation Kimi Nichole Mar 23, 2017 10:22
[2017-03-23] MEDS ORDERED: FLEC1TAB8 PO (12:28)
--- NOTE | 2017-03-23 12:29 | HHI.DCPOC ---
Discharge Care Plan Diagnosis: (1) Heart palpitations (2) Atypical chest pain (3) Lown Ganong Ramos syndrome Goals to Promote Your Health * To prevent worsening of your condition and complications * To maintain your health at the optimal level Directions to Meet Your Goals Take your medications as prescribed Follow your dietary instruction Follow activity as directed Keep your appointments as scheduled Take your immunizations and boosters as scheduled If your symptoms worsen call your PCP, if no PCP go to Urgent Care Center or Emergency Room Smoking is Dangerous to Your Health. Avoid second hand smoke Call the 24-hour hour crisis hotline for domestic abuse at Kimi Nichole Mar 23, 2017 12:29
[2017-03-23 13:30] VITALS: BP 102/77; TEMP 97
--- NOTE | 2017-03-23 14:01 | EKG ---
Date Performed: 03/23/2017 Time Performed: 07:56:50 PTAGE: 26 years EKG: Sinus rhythm SHORT CT INTERVAL PREVIOUS TRACING : 03/23/2017 02.58 Since previous tracing, no significant change noted DOCTOR: Tino Heart Interpretating Date/Time 03/23/2017 14:00:25
--- NOTE | 2017-03-23 14:03 | EKG ---
Date Performed: 03/23/2017 Time Performed: 02:58:56 PTAGE: 26 years EKG: SINUS BRADYCARDIA WITH SHORT [place] INTERVAL BORDERLINE ECG PREVIOUS TRACING : 03/12/2017 01.35 Since previous tracing, no significant change noted DOCTOR: Tino Heart Interpretating Date/Time 03/23/2017 14:01:53
--- NOTE | 2017-03-23 14:06 | TR ---
Date Performed: 03/23/2017 Time Performed: 11:21:32 DOCTOR: Tino Heart DRUG LIST: CLINICAL HISTORY: CHEST PAIN REASON FOR TEST: REASON FOR ENDING: OBSERVATION: CONCLUSION: Brown protocol completed. Stopped sec to reaching target heart rate and leg fatigue. Maximum PS=430 % Target HR Achieved=85.0% Maximum TS=144/60 Total Exercise Time=10:20. No reprod ady st discomfort. No ectopy. No st t segment changes to sugg ischemia. Great exercise tolerance. Normal bp response. Recovery quick and unremarkable. COMMENTS: Patient exercised using the Brown protocol. No electrocardiographic changes were seen to suggest ischemia. Hemodynamic response to exercise was normal. No significant arrhythmia was prese nt.
== END 2017-03-23 13:30 | disposition home or self-care (01) ==
LOC: NEPE 01:16 → NEDA 05:14 → UNDOADMOB 05:14 → NEPE 13:30
DX: R07.89 Other chest pain (principal); R00.1 Bradycardia, unspecified; Z72.0 Tobacco use
CPT/HCPCS: 71010; 80053; 82550; 82552; 83690; 83735; 83880; 84484; 84703; 85025; 85610; 85730; 93005; 93017

== ENCOUNTER 2017-03-25 22:10 | Emergency (ER) | payer MEDICAID ==
[~2017-03-25] VITALS: Ht 172.7 cm; Wt 68.0 kg
[~2017-03-25 22:10] MED LIST changes: +FLEC1TAB8 PO; -METO25TA3 PO
[2017-03-25 22:23] VITALS: BP 122/63; PULSE 97; RESP 18; TEMP 97.5; O2SAT 100
[2017-03-25] MEDS ORDERED: SODIUM CHLOR 0.9% 1000 ML INJ 1,000 ML IV SCH (22:30)
--- NOTE | 2017-03-25 22:37 | PD ---
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 She reports that most recently , she was seen here on March 23 [facility] where she had a normal stress test. She was started on Fleceinide 50 mg bid by civil engineer's aide Dr. Heart which she has been taking since discharge. She reports that she has felt well, in her usual state of health, until this evening prior to arrival she began feeling dizzy and experiencing palpitations. She checked her heart rate and it was as high as 140. Per EMS the highest recorded heart rate was [address], sinus tachycardia. At this point in time the patient is feeling a little better but she is continuing mild dizziness. No palpitations currently. She denies any chest pain, she was experiencing some shortness of breath during her episode of palpitations. She denies any nausea or vomiting, abdominal pain, illicit drug use. The patient has made an appointment to follow up with civil engineer's aide Dr. Heart on an outpatient basis. No other complaints at this time. PFSH Past Medical History Blood Disorders: No Heart Rhythm Problems: Yes (SVT ) Cancer: No Cardiovascular Problems: Yes (SVT) Chemotherapy: No Diminished Hearing: No Endocrine: No Genitourinary: No Immune Disorder: No Musculoskeletal: No Neurologic: No Psychiatric: No Reproductive: No Respiratory: No Integumentary: Yes (cellulitis R outer leg ) Immunizations Current: Yes Radiation Therapy: No ?: Unknown LMP: 03/05/17 : 1 Para: 1 Past Surgical History Surgical History: No Previous Surgery Other Surgery: No Social History Alcohol Use: No Tobacco Use: No Substance Use: No Allergies-Medications (Allergen,Severity, Reaction): Coded Allergies: No Known Allergies (Unverified , 03/25/17) Reported Meds & Prescriptions Reported Meds & Active Scripts Active Flecainide (Flecainide Acetate) 50 Mg Tab 50 Mg PO BID Review of Systems Except as stated in HPI: all other systems reviewed are Neg Physical Exam Narrative GENERAL: Pleasant well-developed well-nourished female who appears anxious on initial examination. Her vital signs have been reviewed. SKIN: Warm and dry. HEAD: Atraumatic. Normocephalic. EYES: Pupils equal and round. No scleral icterus. No injection or drainage. ENT: No nasal bleeding or discharge. Mucous membranes pink and moist. NECK: Trachea midline. No JVD. CARDIOVASCULAR: Regular rate and rhythm. No murmur appreciated. RESPIRATORY: No accessory muscle use. Clear to auscultation. Breath sounds equal bilaterally. GASTROINTESTINAL: Abdomen soft, non-tender, nondistended. Hepatic and splenic margins not palpable. MUSCULOSKELETAL: No obvious deformities. No clubbing. No cyanosis. No edema. NEUROLOGICAL: Awake and alert. No obvious cranial nerve deficits. Motor grossly within normal limits. Normal speech. PSYCHIATRIC: Appropriate mood and affect; insight and judgment normal. Data Data Last Documented VS Vital Signs Date Time Temp Pulse Resp B/P (MAP) Pulse Ox O2 Delivery O2 Flow Rate FiO2 03/25/17 22:23 97.5 97 18 122/63 (82) 100 Orders Orders Basic Metabolic Panel (Bmp) (03/25/17 22:30) Complete Blood Count With Diff (03/25/17 22:30) Sodium Chlor 0.9% 1000 Ml Inj (Ns 1000 M (03/25/17 22:30) Electrocardiogram (03/25/17 22:30) Ed Urine Pregnancytest Poc (03/25/17 22:30) Magnesium (Mg) (03/25/17 22:30) Ecg Monitoring (03/25/17 22:30) Labs Laboratory Tests Test 03/25/17 22:30 White Blood Count 6.7 TH/MM3 Red Blood Count 3.89 MIL/MM3 Hemoglobin 12.5 GM/DL Hematocrit 35.9 % Mean Corpuscular Volume 92.2 FL Mean Corpuscular Hemoglobin 32.2 PG Mean Corpuscular Hemoglobin Concent 34.9 % Red Cell Distribution Width 12.2 % Platelet Count 264 TH/MM3 Mean Platelet Volume 7.6 FL Neutrophils (%) (Auto) 62.9 % Lymphocytes (%) (Auto) 25.6 % Monocytes (%) (Auto) 8.6 % Eosinophils (%) (Auto) 2.3 % Basophils (%) (Auto) 0.6 % Neutrophils # (Auto) 4.2 TH/MM3 Lymphocytes # (Auto) 1.7 TH/MM3 Monocytes # (Auto) 0.6 TH/MM3 Eosinophils # (Auto) 0.2 TH/MM3 Basophils # (Auto) 0.0 TH/MM3 CBC Comment DIFF FINAL Differential Comment MDM Medical Decision Making Medical Screen Exam Complete: Yes Emergency Medical Condition: Yes Medical Record Reviewed: Yes Differential Diagnosis Sinus tachycardia, SVT, PVCs, PACs, atrial fibrillation, electrolyte abnormality , anxiety Narrative Course 26-year-old female who has been seen here several times in the past month for evaluation of palpitations and tachycardia. She has possible LGL syndrome, presumed runs of SVT although none recorded on her system. She presents after experiencing palpitations, dizziness and tachycardia with a heart rate as high as 140 at home. This occurred just prior to arrival. Currently she is in sinus rhythm. Most recently the patient was seen here 2 days ago and she was started on flecainide 50 mg bid. The patient will be placed on the monitor and pulse oximetry. A 12-lead EKG was obtained which reveals sinus rhythm with sinus arrhythmia, rate 80. Plan is for basic lab work, she'll be given IV fluids. The patient has been stable during her hospital stay. At the end my shift the patient was signed out to Dr. Mora pending BMP, likely the patient will be able to be discharged if normal as she has close follow-up with Dr. Heart the civil engineer's aide on an outpatient basis. Procedures EKG Prior to Arrival: Yes Jaxon Magana Mar 25, 2017 22:37
[2017-03-25 22:46] LABS: AUTOMATED NEUTROPHIL # 4.2 TH/MM3 (1.8-7.7); BASOPHIL % 0.6 % (0.0-2.0); EOSINOPHIL # 0.2 TH/MM3 (0-0.4); EOSINOPHIL % 2.3 % (0.0-4.0); HEMATOCRIT 35.9 % (35.0-46.0); HEMO FLAGS DIFF FINAL; LYMPH % 25.6 % (9.0-44.0); LYMPHOCYTE # 1.7 TH/MM3 (1.0-4.8); MEAN CELL VOLUME 92.2 FL (80.0-100.0); MEAN CORPUSCULAR HEMOGLOBIN 32.2 PG (27.0-34.0); MEAN CORPUSCULAR HGB CONC 34.9 % (32.0-36.0); MONO % 8.6 % (0.0-8.0); NEUT % 62.9 % (16.0-70.0); PLATELET COUNT 264 TH/MM3 (150-450); RED BLOOD COUNT 3.89 MIL/MM3 (4.00-5.30); RED CELL DISTRIBUTION WIDTH 12.2 % (11.6-17.2); WHITE BLOOD COUNT 6.7 TH/MM3 (4.0-11.0)
[2017-03-25 23:06] LABS: BICARBONATE 24.9 MEQ/L (21.0-32.0); MAGNESIUM 1.7 MG/DL (1.5-2.5)
[2017-03-25] MEDS ORDERED: POTASSIUM CHLORIDE 10 MEQ CONTROLLED RELEASE TAB PO ONE (23:45)
[2017-03-26 00:57] VITALS: BP 101/68; PULSE 75; RESP 18; O2SAT 98
--- NOTE | 2017-03-26 02:18 | PD ---
Physical Exam Date Seen by Provider: Mar 26, 2017 Data Data Last Documented VS Vital Signs Date Time Temp Pulse Resp B/P (MAP) Pulse Ox O2 Delivery O2 Flow Rate FiO2 03/26/17 00:57 75 18 101/68 (79) 98 Room Air 03/25/17 22:23 97.5 Orders Orders Basic Metabolic Panel (Bmp) (03/25/17 22:30) Complete Blood Count With Diff (03/25/17 22:30) Sodium Chlor 0.9% 1000 Ml Inj (Ns 1000 M (03/25/17 22:30) Electrocardiogram (03/25/17 22:30) Ed Urine Pregnancytest Poc (03/25/17 22:30) Magnesium (Mg) (03/25/17 22:30) Ecg Monitoring (03/25/17 22:30) Potassium Chloride (Kcl) (03/25/17 23:45) Labs Laboratory Tests Test 03/25/17 22:30 White Blood Count 6.7 TH/MM3 Red Blood Count 3.89 MIL/MM3 Hemoglobin 12.5 GM/DL Hematocrit 35.9 % Mean Corpuscular Volume 92.2 FL Mean Corpuscular Hemoglobin 32.2 PG Mean Corpuscular Hemoglobin Concent 34.9 % Red Cell Distribution Width 12.2 % Platelet Count 264 TH/MM3 Mean Platelet Volume 7.6 FL Neutrophils (%) (Auto) 62.9 % Lymphocytes (%) (Auto) 25.6 % Monocytes (%) (Auto) 8.6 % Eosinophils (%) (Auto) 2.3 % Basophils (%) (Auto) 0.6 % Neutrophils # (Auto) 4.2 TH/MM3 Lymphocytes # (Auto) 1.7 TH/MM3 Monocytes # (Auto) 0.6 TH/MM3 Eosinophils # (Auto) 0.2 TH/MM3 Basophils # (Auto) 0.0 TH/MM3 CBC Comment DIFF FINAL Differential Comment Blood Urea Nitrogen 12 MG/DL Creatinine 0.96 MG/DL Random Glucose 99 MG/DL Calcium Level 8.9 MG/DL Magnesium Level 1.7 MG/DL Sodium Level 138 MEQ/L Potassium Level 3.0 MEQ/L Chloride Level 105 MEQ/L Carbon Dioxide Level 24.9 MEQ/L Anion Gap 8 MEQ/L Estimat Glomerular Filtration Rate 84 ML/MIN [facility] Medical Record Reviewed: Yes Supervised Visit with KENDELL: Yes Interpretation(s) EKG at 2233: NSR at 80bpm, qt/qtc: 378/414, no acute st or t wave changes Vital Signs Date Time Temp Pulse Resp B/P (MAP) Pulse Ox O2 Delivery O2 Flow Rate FiO2 03/26/17 00:57 75 18 101/68 (79) 98 Room Air 03/25/17 22:23 97.5 97 18 122/63 (82) 100 Laboratory Tests Test 03/25/17 22:30 White Blood Count 6.7 TH/MM3 (4.0-11.0) Red Blood Count 3.89 MIL/MM3 (4.00-5.30) Hemoglobin 12.5 GM/DL (11.6-15.3) Hematocrit 35.9 % (35.0-46.0) Mean Corpuscular Volume 92.2 FL (80.0-100.0) Mean Corpuscular Hemoglobin 32.2 PG (27.0-34.0) Mean Corpuscular Hemoglobin Concent 34.9 % (32.0-36.0) Red Cell Distribution Width 12.2 % (11.6-17.2) Platelet Count 264 TH/MM3 (150-450) Mean Platelet Volume 7.6 FL (7.0-11.0) Neutrophils (%) (Auto) 62.9 % (16.0-70.0) Lymphocytes (%) (Auto) 25.6 % (9.0-44.0) Monocytes (%) (Auto) 8.6 % (0.0-8.0) Eosinophils (%) (Auto) 2.3 % (0.0-4.0) Basophils (%) (Auto) 0.6 % (0.0-2.0) Neutrophils # (Auto) 4.2 TH/MM3 (1.8-7.7) Lymphocytes # (Auto) 1.7 TH/MM3 (1.0-4.8) Monocytes # (Auto) 0.6 TH/MM3 (0-0.9) Eosinophils # (Auto) 0.2 TH/MM3 (0-0.4) Basophils # (Auto) 0.0 TH/MM3 (0-0.2) CBC Comment DIFF FINAL Differential Comment Blood Urea Nitrogen 12 MG/DL (7-18) Creatinine 0.96 MG/DL (0.50-1.00) Random Glucose 99 MG/DL (74-106) Calcium Level 8.9 MG/DL (8.5-10.1) Magnesium Level 1.7 MG/DL (1.5-2.5) Sodium Level 138 MEQ/L (136-145) Potassium Level 3.0 MEQ/L (3.5-5.1) Chloride Level 105 MEQ/L (98-107) Carbon Dioxide Level 24.9 MEQ/L (21.0-32.0) Anion Gap 8 MEQ/L (5-15) Estimat Glomerular Filtration Rate 84 ML/MIN (>89) Narrative Course I, Dr. Mora, have reviewed the advance practice practitioner's documentation and am in agreement, met with the patient face to face, made the diagnosis, and the medical decision making was done by me. 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 She is currently being seen by Dr. Heart, cardiology, reports that she is being worked up for palpitations at this time. Patient reports that she was at home when she began to have a heart rate of 140 bpm, patient concerned that she may be an SVT. Patient presents the emergency room in normal sinus rhythm. Patient was monitored for a few hours, with no tachycardia on monitoring analyst and she remained asymptomatic while in the ER. Laboratory Tests Test 03/25/17 22:30 White Blood Count 6.7 TH/MM3 (4.0-11.0) Red Blood Count 3.89 MIL/MM3 (4.00-5.30) Hemoglobin 12.5 GM/DL (11.6-15.3) Hematocrit 35.9 % (35.0-46.0) Mean Corpuscular Volume 92.2 FL (80.0-100.0) Mean Corpuscular Hemoglobin 32.2 PG (27.0-34.0) Mean Corpuscular Hemoglobin Concent 34.9 % (32.0-36.0) Red Cell Distribution Width 12.2 % (11.6-17.2) Platelet Count 264 TH/MM3 (150-450) Mean Platelet Volume 7.6 FL (7.0-11.0) Neutrophils (%) (Auto) 62.9 % (16.0-70.0) Lymphocytes (%) (Auto) 25.6 % (9.0-44.0) Monocytes (%) (Auto) 8.6 % (0.0-8.0) Eosinophils (%) (Auto) 2.3 % (0.0-4.0) Basophils (%) (Auto) 0.6 % (0.0-2.0) Neutrophils # (Auto) 4.2 TH/MM3 (1.8-7.7) Lymphocytes # (Auto) 1.7 TH/MM3 (1.0-4.8) Monocytes # (Auto) 0.6 TH/MM3 (0-0.9) Eosinophils # (Auto) 0.2 TH/MM3 (0-0.4) Basophils # (Auto) 0.0 TH/MM3 (0-0.2) CBC Comment DIFF FINAL Differential Comment Blood Urea Nitrogen 12 MG/DL (7-18) Creatinine 0.96 MG/DL (0.50-1.00) Random Glucose 99 MG/DL (74-106) Calcium Level 8.9 MG/DL (8.5-10.1) Magnesium Level 1.7 MG/DL (1.5-2.5) Sodium Level 138 MEQ/L (136-145) Potassium Level 3.0 MEQ/L (3.5-5.1) Chloride Level 105 MEQ/L (98-107) Carbon Dioxide Level 24.9 MEQ/L (21.0-32.0) Anion Gap 8 MEQ/L (5-15) Estimat Glomerular Filtration Rate 84 ML/MIN (>89) Electrolytes were obtained, potassium was 3.0 which was repleted Patient currently symptomatic this time. Patient has been observed in emergency for hours, she has been normal sinus rhythm without this ER visit. Patient is safe to be discharged home with outpatient follow-up with Dr. Heart. She will return to the emergency room as needed. Diagnosis Primary Impression: Heart palpitations Patient Instructions: General Instructions Additional Instruction: Please follow up with your general farm hand Return to ER as needed or if symptoms return Disposition: 01 DISCHARGE HOME Condition: Stable Nargis Mora DO Mar 26, 2017 02:18
[2017-03-26 02:44] VITALS: BP 106/62; PULSE 74; RESP 16; O2SAT 100
--- NOTE | 2017-03-26 17:22 | EKG ---
Date Performed: 03/25/2017 Time Performed: 22:33:24 PTAGE: 26 years EKG: Sinus rhythm WITH SINUS ARRHYTHMIA NORMAL ECG PREVIOUS TRACING : 03/23/2017 07.56 Compared to prior tracing no significant change DOCTOR: Vernon Villagran Interpretating Date/Time 03/26/2017 17:21:50
[2017-03-26] MEDS ORDERED: METO25TA3 PO (18:11)
== END 2017-03-26 02:57 | disposition home or self-care (01) ==
LOC: NEPE 22:10
DX: R00.2 Palpitations (principal); R42 Dizziness and giddiness; R06.02 Shortness of breath
CPT/HCPCS: 80048; 83735; 84703; 85025; 93005; 96360; 99284; J7030

== ENCOUNTER 2017-03-26 13:24 | Emergency (ER) | payer MEDICAID ==
[~2017-03-26] VITALS: Ht 172.7 cm; Wt 68.0 kg
[2017-03-26 13:25] VITALS: BP 140/78; PULSE 128; RESP 15; TEMP 98; O2SAT 100
--- NOTE | 2017-03-26 13:38 | PD ---
Physical Exam Date Seen by Provider: Mar 26, 2017 Time Seen by Provider: 13:35 Narrative 26-year-old Afro-[place] female presents the emergency department with history of SVT, palpitations, and chest pain. Patient was seen yesterday and x-rays seen by Dr. Heart, the hemp fiber taker off. She is sent home on flecainide. Patient was scheduled to see Dr. Heart in 2 weeks, and there was talk of a Holter monitor which was not placed yesterday. Patient currently is not having pain that is continued to have palpitations. She had pain this morning with her palpitations. She has no known drug allergies. Vitals show heart rate of 128, otherwise stable. EKG is ordered. Patient is awaiting that that placement. Data Data Last Documented VS Vital Signs Date Time Temp Pulse Resp B/P (MAP) Pulse Ox O2 Delivery O2 Flow Rate FiO2 03/26/17 13:25 98.0 128 15 140/78 (98) 100 MDM Medical Record Reviewed: Yes Supervised Visit with KENDELL: Yes Condition: Stable Rhett Albarado Mar 26, 2017 13:38
[2017-03-26] MEDS ORDERED: SODIUM CHLOR 0.9% 1000 ML INJ 1,000 ML IV SCH (16:21)
--- NOTE | 2017-03-26 16:26 | PD ---
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 She has been seen here several times for evaluation of this issue and there is no recorded episodes of SVT. The patient was initially on a beta marysol but this was switched to fleceinide 50 mg bid 4 days ago by bullet casting operator Dr. Heart. She presents today because she had 3 episodes of palpitations/elevated heart rate which lasts for several minutes at a time and then spontaneously resolved. She had 2 additional episodes while in the waiting room. Currently she feels better, she is somewhat tired. She has not seen any difference since being started on the fleceinide. She endorses slight discomfort in her chest secondary to the palpitations. She denies shortness of breath, abdominal pain, nausea or vomiting, fevers or chills. The patient was seen here last night for evaluation of this examination was monitored for several hours with no tachycardic episodes. She did have a potassium of 3.0 and this was treated at that time. No other complaints. PFSH Past Medical History Blood Disorders: No Heart Rhythm Problems: Yes (SVT ) Cancer: No Cardiovascular Problems: Yes Chemotherapy: No Diminished Hearing: No Endocrine: No Genitourinary: No Immune Disorder: No Musculoskeletal: No Neurologic: No Psychiatric: No Reproductive: No Respiratory: No Integumentary: Yes (cellulitis R outer leg ) Immunizations Current: Yes Radiation Therapy: No ?: Not LMP: 03/05/17 : 1 Para: 1 Past Surgical History Other Surgery: No Social History Alcohol Use: No Tobacco Use: No Substance Use: No Allergies-Medications (Allergen,Severity, Reaction): Coded Allergies: No Known Allergies (Unverified , 03/26/17) Reported Meds & Prescriptions Reported Meds & Active Scripts Active Flecainide (Flecainide Acetate) 50 Mg Tab 50 Mg PO BID Review of Systems Except as stated in HPI: all other systems reviewed are Neg Physical Exam Narrative GENERAL: Well-developed well-nourished female in no acute distress SKIN: Warm and dry. HEAD: Atraumatic. Normocephalic. EYES: Pupils equal and round. No scleral icterus. No injection or drainage. ENT: No nasal bleeding or discharge. Mucous membranes pink and moist. NECK: Trachea midline. No JVD. CARDIOVASCULAR: Regular rate and rhythm. No murmur appreciated. RESPIRATORY: No accessory muscle use. Clear to auscultation. Breath sounds equal bilaterally. GASTROINTESTINAL: Abdomen soft, non-tender, nondistended. Hepatic and splenic margins not palpable. MUSCULOSKELETAL: No obvious deformities. No clubbing. No cyanosis. No edema. NEUROLOGICAL: Awake and alert. No obvious cranial nerve deficits. Motor grossly within normal limits. Normal speech. PSYCHIATRIC: Appropriate mood and affect; insight and judgment normal. Data Data Last Documented VS Vital Signs Date Time Temp Pulse Resp B/P (MAP) Pulse Ox O2 Delivery O2 Flow Rate FiO2 03/26/17 16:15 100 Room Air 03/26/17 13:25 98.0 128 15 140/78 (98) Orders Orders Electrocardiogram (03/26/17 ) Holter Monitor Recording (03/26/17 ) Basic Metabolic Panel (Bmp) (03/26/17 16:21) Magnesium (Mg) (03/26/17 16:21) Iv Access Insert/Monitor (03/26/17 16:21) Sodium Chlor 0.9% 1000 Ml Inj (Ns 1000 M (03/26/17 16:21) Labs Laboratory Tests Test 03/26/17 16:44 Blood Urea Nitrogen 6 MG/DL Creatinine 0.74 MG/DL Random Glucose 72 MG/DL Calcium Level 9.1 MG/DL Magnesium Level 2.0 MG/DL Sodium Level 136 MEQ/L Potassium Level 3.7 MEQ/L Chloride Level 105 MEQ/L Carbon Dioxide Level 24.9 MEQ/L Anion Gap 6 MEQ/L Estimat Glomerular Filtration Rate 113 ML/MIN [facility] Medical Decision Making Medical Screen Exam Complete: Yes Emergency Medical Condition: Yes Medical Record Reviewed: Yes Interpretation(s) EKG reveals sinus rhythm, rate 95, qt/qtc 359/412, pr interval 125 Differential Diagnosis Sinus tachycardia, no chills syndrome, SVT, PVCs, PACs Narrative Course The patient will be given IV fluids, she will be placed on ECG monitoring pulse oximetry. BMP, magnesium has been ordered. I did speak to bullet casting operator Dr. Heart in regards to this case and he recommended continuing on Flecainide as prescribed and adding on the original metoprolol dose of 25 mg bid. The patient will also be provided with a Holter monitor prior to discharge. The patient's BMP is unremarkable. She is stable for discharge. Diagnosis Primary Impression: Heart palpitations Referrals: Tino Heart MD Additional Instructions: Follow-up with Dr. Heart as scheduled. Continue medications prescribed. Begin taking metoprolol as prescribed as well. Return for any emergent medical conditions. Med/Other Pt SpecificInfo: Prescription(s) given Scripts Metoprolol Tartrate (Metoprolol Tartrate) 25 Mg Tab 25 MG PO BID for Regulate Heart Beat, #60 TAB 0 Refills Prov: Emily Muñoz MD 03/26/17 Disposition: 01 DISCHARGE HOME Condition: Stable Jaxon Magana Mar 26, 2017 16:26
[2017-03-26 17:44] LABS: BICARBONATE 24.9 MEQ/L (21.0-32.0); POTASSIUM 3.7 MEQ/L (3.5-5.1)
[2017-03-26] MEDS ORDERED: METO25TA3 PO (18:11)
[2017-03-26 19:26] VITALS: BP 125/75
--- NOTE | 2017-03-27 16:58 | EKG ---
Date Performed: 03/26/2017 Time Performed: 13:39:49 PTAGE: 26 years EKG: Sinus rhythm POSSIBLE RIGHT ATRIAL ENLARGEMENT LEFT ATRIAL ENLARGEMENT ABNORMAL ECG Since PREVIOUS TRACING , no significant change noted PREVIOUS TRACIN03/25/2017 22.33 DOCTOR: Alyssa Leonard Interpretating Date/Time 03/27/2017 16:57:24
--- NOTE | 2017-03-30 16:03 | HM ---
Date Performed: 03/26/2017 Time Performed: 18:55:00 HOOKUP DATE: 03/26/17 06:55:00 PM Setfanie ANALYSIS START TIME: 03/26/2017 7:00:00 PM ANALYSIS END TIME: 03/27/2017 7:04:00 PM PATIENT AGE: 26 PATIENT HEIGHT PATIENT WEIGHT DRUG LIST PATIENT DIAGNOSIS: cardiac TEST NARRATIVE: The patient's average heart rate was 73 BPM. Heart rates greater than 120 B PM were noted 1% of the time. No episodes of bradycardia were noted. No pauses exceeding 2.0 sec onds were noted. 1 ventricular ectopics, which represented < 1% of the total beat count, were not ed. The highest ventricular ectopic frequency occurred from 10:00 AM to 11:00 AM Fri. During this t deena 1 VE(s) occurred. Ventricular ectopics were observed as 1 isolated beat(s) only. No couplets or runs were noted. 1 supraventricular ectopics, which represented < 1% of the total beat count, we re noted. The highest supraventricular ectopic frequency occurred from 02:00 PM to 03:00 PM Fri. Du ring this time 1 SVE(s) occurred. No episodes of ST depression (defined as -1.0 mm or more) were noted in channel 1. In channel 2, a single episode of ST depression (defined as -1.0 mm or more) occ urred at 08:23:22 PM Stefanie with a maximum depression of -2.1 mm. No episodes of ST depression (defined as -1.0 mm or more) were noted in channel 3. 24 hour Holter. Patient wore monitor for 4 days and ent ered diary entries after monitor stopped recording. No diary entries during recording. TEST INTERPRETATION: Agree with above. Signed by : Rigoberto Varma
== END 2017-03-26 19:32 | disposition home or self-care (01) ==
LOC: NEPC 13:24
DX: R00.2 Palpitations (principal); I47.1 Supraventricular tachycardia; R94.31 Abnormal electrocardiogram [ECG] [EKG]; Z79.899 Other long term (current) drug therapy
CPT/HCPCS: 80048; 83735; 93005; 93225; 93226; 99284; J7030

== ENCOUNTER 2017-03-28 22:27 | Emergency (ER) | payer MEDICAID ==
[~2017-03-28 22:27] MED LIST changes: +METO25TA3 PO
[2017-03-28 22:29] VITALS: BP 139/73; PULSE 59; RESP 16; TEMP 98; O2SAT 100
[2017-03-28 23:59] VITALS: BP 116/58; PULSE 65; RESP 18; O2SAT 100
--- NOTE | 2017-03-29 00:23 | PD ---
HPI Chief Complaint: Respiratory Symptoms Time Seen by Provider: 00:13 Travel History International Travel<30 days: No Contact w/Intl Traveler<30days: No Traveled to known affect area: No History of Present Illness HPI Is a 18 year-old woman with a history of LGL syndrome and SVT, with recurrent palpitations and negative workups, recently started on flecainide, who states that this evening she developed shortness of breath. She had multiple recent admissions. She has outpatient follow-up with Dr. Heart. She is wearing a Holter monitor that she supposed to return this evening. Symptoms are improved now. No other complaints. History Past Medical History Narrative Medical Vgol-Mhtdth-Rwmvex syndrome, SVT, palpitations : 1 Para: 1 Past Surgical History Surgical History: No Previous Surgery Social History Alcohol Use: No Tobacco Use: No Allergies-Medications (Allergen,Severity, Reaction): Coded Allergies: No Known Allergies (Unverified , 03/26/17) Reported Meds & Prescriptions Reported Meds & Active Scripts Active Metoprolol Tartrate 25 Mg Tab 25 Mg PO BID Flecainide (Flecainide Acetate) 50 Mg Tab 50 Mg PO BID Review of Systems Except as stated in HPI: all other systems reviewed are Neg Physical Exam Narrative GENERAL: Well-appearing 18 year-old woman, no acute distress. SKIN: Focused skin assessment warm/dry. HEAD: Atraumatic. Normocephalic. EYES: Pupils equal and round. No scleral icterus. No injection or drainage. ENT: No nasal bleeding or discharge. Mucous membranes pink and moist. NECK: Trachea midline. No JVD. CARDIOVASCULAR: Regular rate and rhythm. No murmur appreciated. RESPIRATORY: No accessory muscle use. Clear to auscultation. Breath sounds equal bilaterally. GASTROINTESTINAL: Abdomen soft, non-tender, nondistended. Hepatic and splenic margins not palpable. MUSCULOSKELETAL: No obvious deformities. Data Data Last Documented VS Vital Signs Date Time Temp Pulse Resp B/P (MAP) Pulse Ox O2 Delivery O2 Flow Rate FiO2 03/28/17 23:59 65 18 116/58 (77) 100 Room Air 03/28/17 22:29 98.0 MDM Medical Decision Making Medical Screen Exam Complete: Yes Emergency Medical Condition: Yes Interpretation(s) My review of EKG: Sinus bradycardia at a rate of 57, normal axis, normal intervals, no acute ischemia. Differential Diagnosis SVT, anxiety, PE, ACS, pneumonia, pneumothorax, other Narrative Course Medical decision making 18 year-old woman, multiple recent admissions palpitations a negative workups, reported history of LGL syndrome and SVT. Shortness of breath tonight after she took her flecainide. She is worried this may be an allergic reaction from the flecainide. She has no evidence of allergic reaction. I recommend she continue her medications and follow-up with Dr. Heart as planned. Diagnosis Primary Impression: Shortness of breath Additional Instructions: Follow-up with Dr. Heart as planned. Return to the emergency department for any new or worsening symptoms. Med/Other Pt SpecificInfo: No Change to Meds Disposition: 01 DISCHARGE HOME Condition: Stable Caleb Sloan MD Mar 29, 2017 00:23
--- NOTE | 2017-03-29 13:31 | EKG ---
Date Performed: 03/29/2017 Time Performed: 00:06:12 PTAGE: 26 years EKG: SINUS BRADYCARDIA BORDERLINE ECG PREVIOUS TRACING : 03/26/2017 13.39 Since previous tracing, atrial abnormality improved; otherw ise, no significant change. DOCTOR: Alvin Boyd Interpretating Date/Time 03/29/2017 13:30:08
== END 2017-03-29 01:11 | disposition home or self-care (01) ==
LOC: NEPC 22:27
DX: R06.02 Shortness of breath (principal); R94.31 Abnormal electrocardiogram [ECG] [EKG]; R00.2 Palpitations
CPT/HCPCS: 93005; 99281

== ENCOUNTER 2017-04-02 04:16 | Emergency (ER) | payer SELFPAY ==
[~2017-04-02] VITALS: Ht 172.7 cm; Wt 68.0 kg
[2017-04-02 04:18] VITALS: BP 117/64; PULSE 65; RESP 18; TEMP 99.1; O2SAT 100
--- NOTE | 2017-04-02 04:33 | PD ---
HPI Chief Complaint: Respiratory Symptoms Time Seen by Provider: 04:24 Travel History International Travel<30 days: No Contact w/Intl Traveler<30days: No Traveled to known affect area: No History of Present Illness HPI DIAGNOSED WITH LGL AND STARTED ON METOPROLOL AND LATER ON STARTED ON FLECAINIDE. SINCE STARTING FLEICANIDE HAS BEEN SOB, AT REST AND WORSENING WITH ACTIVITY. DENIES ANY COUGH/FEVER/ CP/PALPITATIONS. PT STATES SHE HAS FOLLOW UP WITH GLUCOSE AND SYRUP WEIGHER ON Apr BUT WAS A BIT CONCERNED ABOUT THE PERSISTENCE OF SOB SENSATION PMHX: LGL PSHX: NONE ALL: NKDA PFSH Past Medical History Blood Disorders: No Heart Rhythm Problems: Yes (SVT ) Cancer: No Cardiovascular Problems: Yes Chemotherapy: No Diminished Hearing: No Endocrine: No Gastrointestinal Disorders: No Genitourinary: No Immune Disorder: No Implanted Vascular Access Dvce: No Musculoskeletal: No Neurologic: No Psychiatric: No Reproductive: No Respiratory: No Integumentary: Yes (cellulitis R outer leg ) Immunizations Current: Yes Radiation Therapy: No ?: Not : 1 Para: 1 Past Surgical History Surgical History: No Previous Surgery Other Surgery: No Social History Alcohol Use: No Tobacco Use: No Substance Use: No Allergies-Medications (Allergen,Severity, Reaction): Coded Allergies: No Known Allergies (Unverified , 04/02/17) Reported Meds & Prescriptions Reported Meds & Active Scripts Active Metoprolol Tartrate 25 Mg Tab 25 Mg PO BID Flecainide (Flecainide Acetate) 50 Mg Tab 50 Mg PO BID Review of Systems Except as stated in HPI: all other systems reviewed are Neg Respiratory: Positive: Shortness of Breath Physical Exam Narrative GENERAL: SKIN: Warm and dry. HEAD: Atraumatic. Normocephalic. EYES: Pupils equal and round. No scleral icterus. No injection or drainage. ENT: No nasal bleeding or discharge. Mucous membranes pink and moist. NECK: Trachea midline. No JVD. CARDIOVASCULAR: Regular rate and rhythm. RESPIRATORY: No accessory muscle use. Clear to auscultation. Breath sounds equal bilaterally. GASTROINTESTINAL: Abdomen soft, non-tender, nondistended. MUSCULOSKELETAL: Extremities without clubbing, cyanosis, or edema. No obvious deformities. NEUROLOGICAL: Awake and alert. No obvious cranial nerve deficits. Motor grossly within normal limits. Five out of 5 muscle strength in the arms and legs. Normal speech. PSYCHIATRIC: Appropriate mood and affect; insight and judgment normal. Data Data Last Documented VS Vital Signs Date Time Temp Pulse Resp B/P (MAP) Pulse Ox O2 Delivery O2 Flow Rate FiO2 04/02/17 06:10 98 Room Air 04/02/17 04:18 99.1 65 18 Orders Orders Complete Blood Count With Diff (04/02/17 04:33) Comprehensive Metabolic Panel (04/02/17 04:33) B-Type Natriuretic Peptide (04/02/17 04:33) Act Partial Throm Time (Ptt) (04/02/17 04:33) Prothrombin Time / Inr (Pt) (04/02/17 04:33) Ckmb (Isoenzyme) Profile (04/02/17 04:33) Troponin I (04/02/17 04:33) Influenzae A/B Antigen (04/02/17 04:33) Iv Access Insert/Monitor (04/02/17 04:33) Electrocardiogram (04/02/17 04:33) Ecg Monitoring (04/02/17 04:33) Oximetry (04/02/17 04:33) Oxygen Administration (04/02/17 04:33) Ct Pulmonary Angiogram (04/02/17 04:33) Sodium Chloride 0.9% Flush (Ns Flush) (04/02/17 04:45) Ed Urine Pregnancytest Poc (04/02/17 04:33) Iohexol 350 Inj (Omnipaque 350 Inj) (04/02/17 07:05) Labs Laboratory Tests Test 04/02/17 05:00 White Blood Count 5.2 TH/MM3 Red Blood Count 3.91 MIL/MM3 Hemoglobin 12.5 GM/DL Hematocrit 36.0 % Mean Corpuscular Volume 92.1 FL Mean Corpuscular Hemoglobin 31.8 PG Mean Corpuscular Hemoglobin Concent 34.6 % Red Cell Distribution Width 12.6 % Platelet Count 250 TH/MM3 Mean Platelet Volume 8.2 FL Neutrophils (%) (Auto) 52.3 % Lymphocytes (%) (Auto) 30.2 % Monocytes (%) (Auto) 12.8 % Eosinophils (%) (Auto) 3.8 % Basophils (%) (Auto) 0.9 % Neutrophils # (Auto) 2.7 TH/MM3 Lymphocytes # (Auto) 1.6 TH/MM3 Monocytes # (Auto) 0.7 TH/MM3 Eosinophils # (Auto) 0.2 TH/MM3 Basophils # (Auto) 0.0 TH/MM3 CBC Comment DIFF FINAL Differential Comment Prothrombin Time 10.9 SEC Prothromb Time International Ratio 1.0 RATIO Activated Partial Thromboplast Time 24.2 SEC Blood Urea Nitrogen 10 MG/DL Creatinine 0.90 MG/DL Random Glucose 83 MG/DL Total Protein 7.0 GM/DL Albumin 3.8 GM/DL Calcium Level 8.6 MG/DL Alkaline Phosphatase 69 U/L Aspartate Amino Transf (AST/SGOT) 10 U/L Alanine Aminotransferase (ALT/SGPT) 12 U/L Total Bilirubin 0.4 MG/DL Sodium Level 141 MEQ/L Potassium Level 3.4 MEQ/L Chloride Level 107 MEQ/L Carbon Dioxide Level 28.0 MEQ/L Anion Gap 6 MEQ/L Estimat Glomerular Filtration Rate 90 ML/MIN Total Creatine Kinase 69 U/L Troponin I LESS THAN 0.02 NG/ML B-Type Natriuretic Peptide 8 PG/ML MDM Medical Decision Making Medical Screen Exam Complete: Yes Emergency Medical Condition: Yes Medical Record Reviewed: Yes Differential Diagnosis MED ADVERSE EFFECT, VS PE VS PERICARDIAL EFFUSION Narrative Course ON REVIEW OF CT NO PERICARDIAL EFFUSION, NO PE, NO AAA, NO DISSECTION NOTED, NO PNA NOTED EITHER. MOST LIKELY SENSATION OF DYSPNEA MAY BE ADVERSE EFFECT FROM FLECAINIDE,PT WAS ADVISED TO FOLLOW UP WITH HER GLUCOSE AND SYRUP WEIGHER Diagnosis Primary Impression: Exertional dyspnea Additional Instructions: PLEASE KEEP YOUR APPOINTMENT ON Apr WITH YOUR GLUCOSE AND SYRUP WEIGHER. TODAY NO EVIDENCE OF BLOOD CLOT TO LUNGS NOR ANY PERICARDIAL EFFUSION (FLUID AROUND YOUR HEART) Disposition: 01 DISCHARGE HOME Condition: Stable Lavelle Oscar MD Apr 02, 2017 04:33
[2017-04-02] MEDS ORDERED: SODIUM CHLORIDE 0.9% FLUSH 10 ML FLUSH IVF PRN (04:45)
[2017-04-02 05:16] LABS: AUTOMATED NEUTROPHIL # 2.7 TH/MM3 (1.8-7.7); BASOPHIL % 0.9 % (0.0-2.0); EOSINOPHIL # 0.2 TH/MM3 (0-0.4); EOSINOPHIL % 3.8 % (0.0-4.0); HEMO FLAGS DIFF FINAL; LYMPH % 30.2 % (9.0-44.0); LYMPHOCYTE # 1.6 TH/MM3 (1.0-4.8); MEAN CELL VOLUME 92.1 FL (80.0-100.0); MEAN CORPUSCULAR HEMOGLOBIN 31.8 PG (27.0-34.0); MEAN CORPUSCULAR HGB CONC 34.6 % (32.0-36.0); MONO % 12.8 % (0.0-8.0); NEUT % 52.3 % (16.0-70.0); PLATELET COUNT 250 TH/MM3 (150-450); RED BLOOD COUNT 3.91 MIL/MM3 (4.00-5.30); RED CELL DISTRIBUTION WIDTH 12.6 % (11.6-17.2); WHITE BLOOD COUNT 5.2 TH/MM3 (4.0-11.0)
[2017-04-02 05:25] LABS: APTT (PATIENT) 24.2 SEC (24.3-30.1); PROTHROMBIN TIME - PATIENT 10.9 SEC (9.8-11.6)
[2017-04-02 05:29] LABS: ALT (GPT) 12 U/L (10-53); ANION GAP 6 MEQ/L (5-15); AST (GOT) 10 U/L (15-37); BLOOD UREA NITROGEN 10 MG/DL (7-18); CHLORIDE 107 MEQ/L (98-107); GLOMERULAR FILTRATION RATE 90 ML/MIN (>89); POTASSIUM 3.4 MEQ/L (3.5-5.1); SODIUM (NA) 141 MEQ/L (136-145)
[2017-04-02 05:33] LABS: ALKALINE PHOSPHATASE 69 U/L (45-117); TOTAL BILIRUBIN ADULT 0.4 MG/DL (0.2-1.0)
[2017-04-02 05:34] LABS: CREATINE KINASE 69 U/L (26-192)
[2017-04-02 06:10] VITALS: O2SAT 98
[2017-04-02] MEDS ORDERED: IOHEXOL 350 MG/ML 10 ML VIAL (for RAD DIAG) IVCONTRAST ONE (07:05)
--- NOTE | 2017-04-02 07:13 | RADRPT ---
EXAM DATE/TIME: 04/02/2017 06:41 [facility] COMPARISON: No previous studies available for comparison. INDICATIONS : Shortness of breath after starting new medication. IV CONTRAST: 50 cc Omnipaque 350 (iohexol) IV RADIATION DOSE: 5.68 CTDIvol (mGy) MEDICAL HISTORY : None SURGICAL HISTORY : None. ENCOUNTER: Initial ACUITY: 4 - 6 days PAIN SCALE: 0/10 LOCATION: chest TECHNIQUE: Volumetric scanning of the chest was performed using a pulmonary embolism protocol MIP images were re constructed. Using automated exposure control and adjustment of the mA and/or kV according to patien t size, radiation dose was kept as low as reasonably achievable to obtain optimal diagnostic quality images. DICOM format image data is available electronically for review and comparison. Follow-up recommendations for detected pulmonary nodules are based at a minimum on nodule size and pa tient risk factors according to Fleischner Society Guidelines. FINDINGS: PULMONARY ARTERIES: No filling defects are seen in the pulmonary arteries through the segmental level. LUNGS: There is no consolidation or pneumothorax . No concerning pulmonary nodule is visualized. PLEURAE: There is no pleural thickening or pleural effusion. MEDIASTINUM: There is good visualization of the great vessels of the middle mediastinum. No evidence of mediastin al or hilar adenopathy/mass. MUSCULOSKELETAL: Within normal limits for patient age. MISCELLANEOUS: The visualized upper abdominal organs demonstrate no acute abnormality. CONCLUSION: Normal examination. Silvio Chatterjee MD on April 02, 2017 at 7:11 Board Certified Radiologist. This report was verified electronically.
--- NOTE | 2017-04-02 17:11 | EKG ---
Date Performed: 04/02/2017 Time Performed: 05:01:03 PTAGE: 26 years EKG: Sinus rhythm WITH SINUS ARRHYTHMIA NORMAL ECG Since PREVIOUS TRACING , no significant change noted PREVIOUS TRACIN03/29/2017 00.06 DOCTOR: Alyssa Leonard Interpretating Date/Time 04/02/2017 17:09:15
== END 2017-04-02 07:37 | disposition home or self-care (01) ==
LOC: NEPE 04:16
DX: R06.09 Other forms of dyspnea (principal)
CPT/HCPCS: 71275; 80053; 82550; 83880; 84484; 84703; 85025; 85610; 85730; 87804; 93005; 99285; Q9967

== ENCOUNTER 2017-04-02 20:37 | Emergency (ER) | payer SELFPAY ==
[~2017-04-02] VITALS: Ht 172.7 cm; Wt 69.0 kg
[2017-04-02 20:39] VITALS: BP 120/75; PULSE 68; RESP 18; TEMP 98.6; O2SAT 100
[2017-04-02 21:52] VITALS: BP 129/74; PULSE 60; RESP 18; O2SAT 100
[2017-04-02] MEDS ORDERED: SODIUM CHLORIDE 0.9% FLUSH 10 ML FLUSH IVF PRN (22:45)
[2017-04-02 22:54] VITALS: BP 111/64; PULSE 57; RESP 18; O2SAT 100
[2017-04-02 23:07] LABS: AUTOMATED NEUTROPHIL # 4.6 TH/MM3 (1.8-7.7); BASOPHIL # 0.1 TH/MM3 (0-0.2); BASOPHIL % 0.7 % (0.0-2.0); EOSINOPHIL # 0.2 TH/MM3 (0-0.4); EOSINOPHIL % 2.4 % (0.0-4.0); HEMATOCRIT 35.9 % (35.0-46.0); HEMO FLAGS DIFF FINAL; LYMPH % 26.4 % (9.0-44.0); MEAN CELL VOLUME 92.3 FL (80.0-100.0); MEAN CORPUSCULAR HEMOGLOBIN 31.5 PG (27.0-34.0); MEAN CORPUSCULAR HGB CONC 34.1 % (32.0-36.0); MONO % 10.5 % (0.0-8.0); PLATELET COUNT 252 TH/MM3 (150-450); RED BLOOD COUNT 3.89 MIL/MM3 (4.00-5.30); RED CELL DISTRIBUTION WIDTH 12.8 % (11.6-17.2); WHITE BLOOD COUNT 7.7 TH/MM3 (4.0-11.0)
[2017-04-02 23:16] LABS: APTT (PATIENT) 25.1 SEC (24.3-30.1); PROTHROMBIN TIME - PATIENT 11.2 SEC (9.8-11.6)
--- NOTE | 2017-04-02 23:21 | PD ---
HPI Chief Complaint: Respiratory Symptoms Time Seen by Provider: 22:40 Travel History International Travel<30 days: No Contact w/Intl Traveler<30days: No Traveled to known affect area: No History of Present Illness HPI 26-year-old female returns to the emergency department for complaint of ongoing shortness of breath. 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 Patient was just seen this morning at [address] pulmonary angiogram which was negative for PE, EKG showed no acute abnormality and lab values are otherwise found to be essentially normal range. Patient was encouraged to continue her current medication of flecainide and metoprolol. 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 Patient denies any chest pain. Patient is not noticed any palpitations or tachycardia. Patient also has not had any fever or chills. Patient has had normal thyroid function studies and no report of excessive caffeine use or substance use. Review of medical records indicates patient has had an essentially normal echo and normal stress test as of 03/23/17. PFSH Past Medical History Narrative Medical SVT/ poss Oasm-Kxmhmh-Zwjyms syndrome; tobacco use; nursing notes reviewed Blood Disorders: No Heart Rhythm Problems: Yes (SVT ) Cancer: No Cardiovascular Problems: Yes Chemotherapy: No Diminished Hearing: No Endocrine: No Gastrointestinal Disorders: No Genitourinary: No Immune Disorder: No Implanted Vascular Access Dvce: No Musculoskeletal: No Neurologic: No Psychiatric: No Reproductive: No Respiratory: No Integumentary: Yes (cellulitis R outer leg ) Immunizations Current: Yes Radiation Therapy: No Tetanus Vaccination: < 5 Years Influenza Vaccination: No ?: Not LMP: 03/05/2017 : 1 Para: 1 Past Surgical History Surgical History: No Previous Surgery Other Surgery: No Social History Alcohol Use: No Tobacco Use: No Substance Use: No Allergies-Medications (Allergen,Severity, Reaction): Coded Allergies: No Known Allergies (Unverified , 04/02/17) Reported Meds & Prescriptions Reported Meds & Active Scripts Active Metoprolol Tartrate 25 Mg Tab 25 Mg PO BID Flecainide (Flecainide Acetate) 50 Mg Tab 50 Mg PO BID Review of Systems Except as stated in HPI: all other systems reviewed are Neg General / Constitutional: No: Fever, Chills HENT: No: Congestion Cardiovascular: No: Chest Pain or Discomfort, Palpitations, Tachycardia Respiratory: Positive: Shortness of Breath Gastrointestinal: No: Nausea, Vomiting, Abdominal Pain Genitourinary: No: Flank Pain Skin: No Rash, No Dryness Psychiatric: Positive: Anxiety Hematologic/Lymphatic: No: Easy Bruising Physical Exam Narrative GENERAL: Well-developed well-nourished female in no acute distress no respiratory distress SKIN: Warm and dry. HEAD: Normocephalic. EYES: No scleral icterus. No injection or drainage. NECK: Supple, trachea midline. No JVD or lymphadenopathy. CARDIOVASCULAR: Regular rate and rhythm without murmurs, gallops, or rubs. RESPIRATORY: Breath sounds equal bilaterally. No accessory muscle use. GASTROINTESTINAL: Abdomen soft, non-tender, nondistended. MUSCULOSKELETAL: No cyanosis, or edema. BACK: Nontender without obvious deformity. No CVA tenderness. Data Data Last Documented VS Vital Signs Date Time Temp Pulse Resp B/P (MAP) Pulse Ox O2 Delivery O2 Flow Rate FiO2 04/03/17 02:01 59 18 109/56 (73) 100 Room Air 04/02/17 20:39 98.6 Orders Orders Electrocardiogram (04/02/17 22:41) Basic Metabolic Panel (Bmp) (04/02/17 22:41) B-Type Natriuretic Peptide (04/02/17 22:41) Ckmb (Isoenzyme) Profile (04/02/17 22:41) Complete Blood Count With Diff (04/02/17 22:41) Magnesium (Mg) (04/02/17 22:41) Prothrombin Time / Inr (Pt) (04/02/17 22:41) Act Partial Throm Time (Ptt) (04/02/17 22:41) Troponin I (04/02/17 22:41) Chest, Single Ap (04/02/17 22:41) Ecg Monitoring (04/02/17 22:41) Bilateral Bp Monitoring (04/02/17 22:41) Iv Access Insert/Monitor (04/02/17 22:41) Oximetry (04/02/17 22:41) Oxygen Administration (04/02/17 22:41) Sodium Chloride 0.9% Flush (Ns Flush) (04/02/17 22:45) CKMB (04/02/17 22:50) CKMB% (04/02/17 22:50) Labs Laboratory Tests Test 04/02/17 22:50 White Blood Count 7.7 TH/MM3 Red Blood Count 3.89 MIL/MM3 Hemoglobin 12.2 GM/DL Hematocrit 35.9 % Mean Corpuscular Volume 92.3 FL Mean Corpuscular Hemoglobin 31.5 PG Mean Corpuscular Hemoglobin Concent 34.1 % Red Cell Distribution Width 12.8 % Platelet Count 252 TH/MM3 Mean Platelet Volume 7.9 FL Neutrophils (%) (Auto) 60.0 % Lymphocytes (%) (Auto) 26.4 % Monocytes (%) (Auto) 10.5 % Eosinophils (%) (Auto) 2.4 % Basophils (%) (Auto) 0.7 % Neutrophils # (Auto) 4.6 TH/MM3 Lymphocytes # (Auto) 2.0 TH/MM3 Monocytes # (Auto) 0.8 TH/MM3 Eosinophils # (Auto) 0.2 TH/MM3 Basophils # (Auto) 0.1 TH/MM3 CBC Comment DIFF FINAL Differential Comment Prothrombin Time 11.2 SEC Prothromb Time International Ratio 1.0 RATIO Activated Partial Thromboplast Time 25.1 SEC Blood Urea Nitrogen 12 MG/DL Creatinine 0.87 MG/DL Random Glucose 90 MG/DL Calcium Level 9.1 MG/DL Magnesium Level 2.2 MG/DL Sodium Level 140 MEQ/L Potassium Level 3.7 MEQ/L Chloride Level 108 MEQ/L Carbon Dioxide Level 25.6 MEQ/L Anion Gap 6 MEQ/L Estimat Glomerular Filtration Rate 94 ML/MIN Total Creatine Kinase 103 U/L Creatine Kinase MB 0.6 NG/ML Troponin I LESS THAN 0.02 NG/ML B-Type Natriuretic Peptide 4 PG/ML [facility] Medical Decision Making Medical Screen Exam Complete: Yes Emergency Medical Condition: Yes Medical Record Reviewed: Yes Interpretation(s) EKG sinus bradycardia rate [address] elevation or injury pattern or ectopy noted no delta wave identified 0610 POC hcg: negative Differential Diagnosis Dyspnea, CHF, ACS, electrolyte disturbance, arrhythmia, anxiety; unlikely pneumothorax and negative CT bony angiogram as of 5 AM 04/02/17 Narrative Course patient placed on ekg monitor and pulse oximeter as well as IV access obtained; EKG performed which reveals no acute ectopy arrhythmia or injury pattern; patient administered IV fluids Chest x-ray reveals no acute abnormalities; CT bony angiogram performed at 4:30 AM on 04/02/17 no acute process no pulmonary embolism no indication to repeat a bony angiogram at this time room air O2 saturation is 100% and heart rate is 60 no right strain on EKG Cardiac enzymes including BNP are found to be in normal range along with electrolytes Patient remains asymptomatic in the emergency department Patient's case discussed with her supervisor [employer] farming does not feel she is having an adverse reaction to her medication or to the flecainide; patient's rhythm has been controlled while on metoprolol and flecainide per Dr. Heart patient able to hold flecainide if she feels she cannot tolerate the medication being aware that she may have recurrence of her tachycardia and this needs to be discussed with the patient; I did discuss this recommendation with the patient she does not feel that she is having any ectopy or recurrent rapid heart rate while on the medication is not want to have a recurrence of this and feels that she is astigmatic in the emergency department and no shortness of breath she'll defer holding the medication until she sees her supervisor [employer] as scheduled with appointment April 08. Patient be given work excuse 3 days encourage increase fluid hydration and to rest. Also encouraged to return immediately to the emergency department for any concerns. Physician Communication Physician Communication discussed karli Heart Diagnosis Primary Impression: Exertional dyspnea Referrals: Tino Heart MD 1 week Patient Instructions: General Instructions Departure Forms: Tests/Procedures, Work Release Special Instructions: no work x 3 days Additional Instructions: Return to the emergency department for any concerns Keep scheduled appointment with supervisor [employer] as planned April 08 No work 2 days Increase fluid hydration Disposition: 01 DISCHARGE HOME Condition: Stable Gabrielle Wong MD Apr 02, 2017 23:21
--- NOTE | 2017-04-02 23:21 | RADRPT ---
EXAM DATE/TIME: 04/02/2017 22:48 [facility] COMPARISON: CHEST SINGLE AP, March 23, 2017, 4:55. INDICATIONS : Short of breath. MEDICAL HISTORY : LGL syndrome, SVT. SURGICAL HISTORY : None. ENCOUNTER: Initial ACUITY: 4 - 6 days PAIN SCORE: 0/10 LOCATION: Bilateral chest FINDINGS: A single view of the chest demonstrates the lungs to be symmetrically aerated without evidence of mas s, infiltrate or effusion. The cardiomediastinal contours are unremarkable. Osseous structures are intact. CONCLUSION: No acute disease. Nawaf Wray MD on April 02, 2017 at 23:18 Board Certified Radiologist. This report was verified electronically.
[2017-04-02 23:26] LABS: ANION GAP 6 MEQ/L (5-15); BICARBONATE 25.6 MEQ/L (21.0-32.0); BLOOD UREA NITROGEN 12 MG/DL (7-18); CHLORIDE 108 MEQ/L (98-107); GLOMERULAR FILTRATION RATE 94 ML/MIN (>89); MAGNESIUM 2.2 MG/DL (1.5-2.5); POTASSIUM 3.7 MEQ/L (3.5-5.1); SODIUM (NA) 140 MEQ/L (136-145)
[2017-04-02 23:31] LABS: CREATINE KINASE 103 U/L (26-192)
[2017-04-02 23:37] VITALS: BP 100/55; PULSE 74; RESP 18; O2SAT 100
[2017-04-02 23:44] LABS: CKMB 0.6 NG/ML (0.5-3.6)
[2017-04-03 00:33] VITALS: BP 113/57; PULSE 62; RESP 18; O2SAT 99
[2017-04-03 02:01] VITALS: BP 109/56; PULSE 59; RESP 18; O2SAT 100
[2017-04-03 02:31] VITALS: BP 109/56
--- NOTE | 2017-04-03 10:22 | EKG ---
Date Performed: 04/02/2017 Time Performed: 23:02:27 PTAGE: 26 years EKG: SINUS BRADYCARDIA BORDERLINE ECG PREVIOUS TRACING : 04/02/2017 05.01 Compared to prior tracing no significant change DOCTOR: Tino Heart Interpretating Date/Time 04/03/2017 10:17:51
== END 2017-04-03 02:42 | disposition home or self-care (01) ==
LOC: NEPC 20:37
DX: R06.09 Other forms of dyspnea (principal); R94.31 Abnormal electrocardiogram [ECG] [EKG]; Z72.0 Tobacco use
CPT/HCPCS: 71010; 80048; 82550; 82552; 83735; 83880; 84484; 85025; 85610; 85730; 93005; 99285

== ENCOUNTER 2017-04-09 20:55 | Emergency (ER) | payer OTHER, MEDICAID ==
[~2017-04-09] VITALS: Ht 172.7 cm; Wt 65.5 kg
[2017-04-09 20:58] VITALS: BP 145/70; PULSE 65; RESP 16; TEMP 98.4; O2SAT 100
[2017-04-09 22:16] VITALS: BP 116/53; PULSE 59; RESP 17; O2SAT 100
--- NOTE | 2017-04-09 22:41 | PD ---
HPI Chief Complaint: Chest Pain Time Seen by Provider: 22:28 Travel History International Travel<30 days: No Contact w/Intl Traveler<30days: No Traveled to known affect area: No History of Present Illness HPI The patient is a 26-year-old [place] female who presents emergency department for palpitations and elevated heart rate. The patient has a recent history of inappropriate sinus tachycardia with previous hospitalization and has undergone echocardiogram and CT pulmonary angiogram. The patient's echocardiogram was unremarkable and the CT pulmonary angiogram was negative. The patient is currently followed by her tin flopper, Dr. Heart. The patient is currently on metoprolol 25 mg twice a day and flecainide 50 mg twice a day. The patient states she saw Dr. Heart yesterday who advised her to call their office if she persisted with symptoms. The patient was driving earlier today and felt like her heart rate was racing. She checked her pulse and it was 120. She called the nurse for their office who referred her to the emergency department. She now notes her symptoms have resolved and her heart rate is in the 50s and 60s. She does complain of shortness of breath at night which makes it difficult to sleep, states she has been sleeping upright on several pillows. She does note decreased sleep over the last 2 nights, averaging 4 hours per night. However, she denies any known history congestive heart failure or swelling of the lower extremities. The patient does have an appointment with her primary physician tomorrow. Symptoms are mild to moderate , there are no current alleviating or exacerbating factors. PFSH Past Medical History Blood Disorders: No Heart Rhythm Problems: Yes (SVT ) Cancer: No Cardiovascular Problems: Yes (SVT, LGL syndrome) Chemotherapy: No Diminished Hearing: No Endocrine: No Gastrointestinal Disorders: No Genitourinary: No Immune Disorder: No Implanted Vascular Access Dvce: No Musculoskeletal: No Neurologic: No Psychiatric: No Reproductive: No Respiratory: No Integumentary: Yes (cellulitis R outer leg ) Immunizations Current: Yes Radiation Therapy: No Tetanus Vaccination: < 5 Years Influenza Vaccination: No ?: Not LMP: 04/09/17 : 1 Para: 1 Past Surgical History Surgical History: No Previous Surgery Other Surgery: No Social History Alcohol Use: No Tobacco Use: No Substance Use: No Allergies-Medications (Allergen,Severity, Reaction): Coded Allergies: No Known Allergies (Unverified , 04/09/17) Reported Meds & Prescriptions Reported Meds & Active Scripts Active Metoprolol Tartrate 25 Mg Tab 25 Mg PO BID Flecainide (Flecainide Acetate) 50 Mg Tab 50 Mg PO BID Review of Systems Except as stated in HPI: all other systems reviewed are Neg HENT: No: Lightheadedness Cardiovascular: Positive: Tachycardia, No: Chest Pain or Discomfort, Syncope Respiratory: Positive: Shortness of Breath, Orthopnea Gastrointestinal: No: Nausea, Vomiting Neurologic: No: Weakness, Dizziness, Syncope Physical Exam Narrative GENERAL: Awake, alert, pleasant 26-year-old female who appears her stated age and is in no acute respiratory distress. SKIN: Focused skin assessment warm/dry. HEAD: Atraumatic. Normocephalic. EYES: No injection or drainage. ENT: No nasal bleeding or discharge. Mucous membranes pink and moist. NECK: Trachea midline. No JVD. CARDIOVASCULAR: Regular rate and rhythm. No murmur appreciated. Heart rate in the 60s. RESPIRATORY: No accessory muscle use. Clear to auscultation. Breath sounds equal bilaterally. MUSCULOSKELETAL: No obvious deformities. No clubbing. No cyanosis. No edema. NEUROLOGICAL: Awake and alert. No obvious cranial nerve deficits. Motor grossly within normal limits. Normal speech. PSYCHIATRIC: Appropriate mood and affect; insight and judgment normal. Data Data Last Documented VS Vital Signs Date Time Temp Pulse Resp B/P (MAP) Pulse Ox O2 Delivery O2 Flow Rate FiO2 04/09/17 22:45 100 Room Air 04/09/17 22:16 59 17 04/09/17 22:16 116/53 (74) 04/09/17 20:58 98.4 Orders Orders Complete Blood Count With Diff (04/09/17 22:35) Basic Metabolic Panel (Bmp) (04/09/17 22:35) B-Type Natriuretic Peptide (04/09/17 22:35) Magnesium (Mg) (04/09/17 22:35) Iv Access Insert/Monitor (04/09/17 22:35) Ecg Monitoring (04/09/17 22:35) Oximetry (04/09/17 22:35) Oxygen Administration (04/09/17 22:35) Chest, Single Ap (04/09/17 22:35) Sodium Chloride 0.9% Flush (Ns Flush) (04/09/17 22:45) Labs Laboratory Tests Test 04/09/17 22:45 White Blood Count 8.3 TH/MM3 Red Blood Count 3.82 MIL/MM3 Hemoglobin 12.4 GM/DL Hematocrit 35.0 % Mean Corpuscular Volume 91.7 FL Mean Corpuscular Hemoglobin 32.5 PG Mean Corpuscular Hemoglobin Concent 35.4 % Red Cell Distribution Width 12.5 % Platelet Count 302 TH/MM3 Mean Platelet Volume 8.5 FL Neutrophils (%) (Auto) 61.7 % Lymphocytes (%) (Auto) 25.0 % Monocytes (%) (Auto) 10.7 % Eosinophils (%) (Auto) 1.9 % Basophils (%) (Auto) 0.7 % Neutrophils # (Auto) 5.1 TH/MM3 Lymphocytes # (Auto) 2.1 TH/MM3 Monocytes # (Auto) 0.9 TH/MM3 Eosinophils # (Auto) 0.2 TH/MM3 Basophils # (Auto) 0.1 TH/MM3 CBC Comment DIFF FINAL Differential Comment Blood Urea Nitrogen 15 MG/DL Creatinine 1.04 MG/DL Random Glucose 88 MG/DL Calcium Level 9.1 MG/DL Magnesium Level 2.2 MG/DL Sodium Level 141 MEQ/L Potassium Level 3.9 MEQ/L Chloride Level 107 MEQ/L Carbon Dioxide Level 27.3 MEQ/L Anion Gap 7 MEQ/L Estimat Glomerular Filtration Rate 76 ML/MIN B-Type Natriuretic Peptide 3 PG/ML MDM Medical Decision Making Medical Screen Exam Complete: Yes Emergency Medical Condition: Yes Medical Record Reviewed: Yes Interpretation(s) EKG reveals normal sinus rhythm with a rate of 60. No ischemic changes or ectopy noted. Chest x-ray reveals normal examination. Last Impressions Chest X-Ray 04/09/177 Signed Impressions: Service Date/Time: April 22:36 - CONCLUSION: Normal examination. Mikel Muro MD Laboratory Tests Test 04/09/17 22:45 White Blood Count 8.3 TH/MM3 Red Blood Count 3.82 MIL/MM3 Hemoglobin 12.4 GM/DL Hematocrit 35.0 % Mean Corpuscular Volume 91.7 FL Mean Corpuscular Hemoglobin 32.5 PG Mean Corpuscular Hemoglobin Concent 35.4 % Red Cell Distribution Width 12.5 % Platelet Count 302 TH/MM3 Mean Platelet Volume 8.5 FL Neutrophils (%) (Auto) 61.7 % Lymphocytes (%) (Auto) 25.0 % Monocytes (%) (Auto) 10.7 % Eosinophils (%) (Auto) 1.9 % Basophils (%) (Auto) 0.7 % Neutrophils # (Auto) 5.1 TH/MM3 Lymphocytes # (Auto) 2.1 TH/MM3 Monocytes # (Auto) 0.9 TH/MM3 Eosinophils # (Auto) 0.2 TH/MM3 Basophils # (Auto) 0.1 TH/MM3 CBC Comment DIFF FINAL Differential Comment Blood Urea Nitrogen 15 MG/DL Creatinine 1.04 MG/DL Random Glucose 88 MG/DL Calcium Level 9.1 MG/DL Magnesium Level 2.2 MG/DL Sodium Level 141 MEQ/L Potassium Level 3.9 MEQ/L Chloride Level 107 MEQ/L Carbon Dioxide Level 27.3 MEQ/L Anion Gap 7 MEQ/L Estimat Glomerular Filtration Rate 76 ML/MIN B-Type Natriuretic Peptide 3 PG/ML Differential Diagnosis Differential diagnosis includes inappropriate sinus tachycardia, arrhythmia, medication side effect, congestive heart failure, pleural effusion, pericardial effusion, pulmonary embolism. Narrative Course IV was established, labs are drawn and sent, and the patient was placed on cardiac telemetry monitoring and continuous pulse oximetry monitoring. EKG was ordered and interpreted. I reviewed the patient's EMR, the patient had an echocardiogram performed February 25, 2017 which revealed no effusion, EF was 55- 60%. Patient also had a negative CT pulmonary angiogram within the last 2 months. The patient's heart rate is now in the 50s and 60s, no acute indication for increase metoprolol or flecainide currently. Potassium and magnesium levels were checked. Labs are unremarkable. BNP was 3. Patient's heart rate maintained 50s, 60s, and low 70s. Patient can follow-up with her tin flopper on an outpatient basis for reevaluation of her medications. Diagnosis Primary Impression: Heart palpitations Patient Instructions: General Instructions Additional Instructions: Please provide a patient a copy of her labs and chest x-ray results at discharge. Follow-up with her primary physician and tin flopper. Return if symptoms worsen or progress. Med/Other Pt SpecificInfo: No Change to Meds Disposition: 01 DISCHARGE HOME Condition: Stable Tristan Valera MD Apr 09, 2017 22:41
[2017-04-09] MEDS ORDERED: SODIUM CHLORIDE 0.9% FLUSH 10 ML FLUSH IVF PRN (22:45)
--- NOTE | 2017-04-09 23:02 | RADRPT ---
EXAM DATE/TIME: 04/09/2017 22:36 [facility] COMPARISON: CHEST SINGLE AP, April 02, 2017, 22:48. INDICATIONS : Chest pain today. MEDICAL HISTORY : SVT. SURGICAL HISTORY : None. ENCOUNTER: Initial ACUITY: 1 day PAIN SCORE: 7/10 LOCATION: Bilateral chest FINDINGS: A single view of the chest demonstrates the lungs to be symmetrically aerated without evidence of mas s, infiltrate or effusion. The cardiomediastinal contours are unremarkable. Osseous structures are intact. CONCLUSION: Normal examination. Mikel Muro MD on April 09, 2017 at 23:01 Board Certified Radiologist. This report was verified electronically.
[2017-04-09 23:07] LABS: AUTOMATED NEUTROPHIL # 5.1 TH/MM3 (1.8-7.7); BASOPHIL # 0.1 TH/MM3 (0-0.2); BASOPHIL % 0.7 % (0.0-2.0); EOSINOPHIL # 0.2 TH/MM3 (0-0.4); EOSINOPHIL % 1.9 % (0.0-4.0); HEMO FLAGS DIFF FINAL; LYMPHOCYTE # 2.1 TH/MM3 (1.0-4.8); MEAN CELL VOLUME 91.7 FL (80.0-100.0); MEAN CORPUSCULAR HEMOGLOBIN 32.5 PG (27.0-34.0); MEAN CORPUSCULAR HGB CONC 35.4 % (32.0-36.0); MONO % 10.7 % (0.0-8.0); NEUT % 61.7 % (16.0-70.0); PLATELET COUNT 302 TH/MM3 (150-450); RED BLOOD COUNT 3.82 MIL/MM3 (4.00-5.30); RED CELL DISTRIBUTION WIDTH 12.5 % (11.6-17.2); WHITE BLOOD COUNT 8.3 TH/MM3 (4.0-11.0)
[2017-04-09 23:09] LABS: BICARBONATE 27.3 MEQ/L (21.0-32.0); MAGNESIUM 2.2 MG/DL (1.5-2.5); POTASSIUM 3.9 MEQ/L (3.5-5.1)
--- NOTE | 2017-04-10 13:11 | EKG ---
Date Performed: 04/09/2017 Time Performed: 22:24:50 PTAGE: 26 years EKG: Sinus rhythm NORMAL ECG PREVIOUS TRACING 04/02/17 Compared to prior tracing no significant change DOCTOR: Marcus Renee Interpretating Date/Time 04/10/2017 13:09:34
== END 2017-04-09 23:51 | disposition home or self-care (01) ==
LOC: NEPE 20:55
DX: R00.2 Palpitations (principal); R06.02 Shortness of breath
CPT/HCPCS: 71010; 80048; 83735; 83880; 85025; 93005; 99284

== ENCOUNTER 2017-05-13 12:42 | Emergency (ER) | payer MEDICAID ==
[2017-05-13 12:49] VITALS: BP 116/71
[2017-05-13 13:42] LABS: AUTOMATED NEUTROPHIL # 3.7 TH/MM3 (1.8-7.7); BASOPHIL % 0.6 % (0.0-2.0); EOSINOPHIL # 0.1 TH/MM3 (0-0.4); EOSINOPHIL % 2.3 % (0.0-4.0); HEMATOCRIT 36.4 % (35.0-46.0); HEMO FLAGS DIFF FINAL; LYMPH % 29.5 % (9.0-44.0); LYMPHOCYTE # 1.9 TH/MM3 (1.0-4.8); MEAN CELL VOLUME 92.7 FL (80.0-100.0); MEAN CORPUSCULAR HEMOGLOBIN 31.9 PG (27.0-34.0); MEAN CORPUSCULAR HGB CONC 34.4 % (32.0-36.0); MONO % 8.6 % (0.0-8.0); PLATELET COUNT 340 TH/MM3 (150-450); RED BLOOD COUNT 3.92 MIL/MM3 (4.00-5.30); RED CELL DISTRIBUTION WIDTH 13.2 % (11.6-17.2); WHITE BLOOD COUNT 6.4 TH/MM3 (4.0-11.0)
--- NOTE | 2017-05-13 13:55 | RADRPT ---
EXAM DATE/TIME: 05/13/2017 13:32 [facility] COMPARISON: CHEST SINGLE AP, April 09, 2017, 22:36. INDICATIONS : Chest pain MEDICAL HISTORY : None. LGL syndrome. Supraventricular tachycardia. SURGICAL HISTORY : None. ENCOUNTER: Initial ACUITY: 1 day PAIN SCORE: 6/10 LOCATION: Bilateral chest FINDINGS: A single view of the chest demonstrates the lungs to be symmetrically aerated without evidence of mas s, infiltrate or effusion. The cardiomediastinal contours are unremarkable. Osseous structures are intact. CONCLUSION: No acute disease. Ronaldo De Jesus MD FACR on May 13, 2017 at 13:53 Board Certified Radiologist. This report was verified electronically.
[2017-05-13 13:57] LABS: APTT (PATIENT) 24.5 SEC (24.3-30.1); PROTHROMBIN TIME - PATIENT 11.3 SEC (9.8-11.6)
[2017-05-13 14:10] LABS: ANION GAP 7 MEQ/L (5-15); AST (GOT) 16 U/L (15-37); BLOOD UREA NITROGEN 11 MG/DL (7-18); CHLORIDE 104 MEQ/L (98-107); GLOMERULAR FILTRATION RATE 83 ML/MIN (>89); POTASSIUM 3.5 MEQ/L (3.5-5.1); SODIUM (NA) 138 MEQ/L (136-145)
[2017-05-13 14:11] LABS: ALT (GPT) 21 U/L (10-53)
[2017-05-13 14:15] LABS: ALKALINE PHOSPHATASE 51 U/L (45-117); CREATINE KINASE 122 U/L (26-192); TOTAL BILIRUBIN ADULT 1.9 MG/DL (0.2-1.0)
--- NOTE | 2017-05-13 14:19 | PD ---
HPI Chief Complaint: Chest Pain Time Seen by Provider: 12:56 Travel History International Travel<30 days: No Contact w/Intl Traveler<30days: No Traveled to known affect area: No History of Present Illness HPI 26-year-old female that presents to the ED for evaluation of right-sided chest pain for about 10 days now. Per patient she to the chest pain will go away and she called her doctor Dr. Heart office who recommended observation. She does have a history of SVT as well as sick sinus syndrome. She takes metoprolol and finasteride. She denies any trauma or recent travel. No injuries or fevers. No cough or runny nose. Per patient the pain is not constant but comes and goes. It is sharp and gets to be 7 out of 10. She states that currently is 4 out of 10. She is not taking anything for this. She does not take any blood thinners. No aspirin. No control. She contacted her doctor today but she was not able to reach Dr. Leblanc since that she got the nurse practitioner who recommended that she comes here to get evaluated for the chest pain. She states that she had a recent stress test in March and was negative. She's had echocardiograms and CT scans that have been all negative. She does not appear to be in any distress at this time. PFSH Past Medical History Blood Disorders: No Heart Rhythm Problems: Yes (SVT ) Cancer: No Cardiovascular Problems: Yes (SVT, LGL syndrome) Chemotherapy: No Diminished Hearing: No Endocrine: No Gastrointestinal Disorders: No Genitourinary: No Immune Disorder: No Implanted Vascular Access Dvce: No Musculoskeletal: No Neurologic: No Psychiatric: No Reproductive: No Respiratory: No Integumentary: Yes (cellulitis R outer leg ) Immunizations Current: Yes Radiation Therapy: No ?: Not LMP: 05/12/17 : 1 Para: 1 Past Surgical History Other Surgery: No Social History Alcohol Use: No Tobacco Use: No Substance Use: No Allergies-Medications (Allergen,Severity, Reaction): Coded Allergies: No Known Allergies (Unverified , 04/09/17) Reported Meds & Prescriptions Reported Meds & Active Scripts Active Naproxen 250 Mg Tab 250 Mg PO BID PRN Metoprolol Tartrate 25 Mg Tab 25 Mg PO BID Flecainide (Flecainide Acetate) 50 Mg Tab 50 Mg PO BID Review of Systems Except as stated in HPI: all other systems reviewed are Neg Physical Exam Narrative GENERAL: SKIN: Warm and dry. HEAD: Atraumatic. Normocephalic. EYES: Pupils equal and round. No scleral icterus. No injection or drainage. ENT: No nasal bleeding or discharge. Mucous membranes pink and moist. Tongue is midline. No uvula deviation. NECK: Trachea midline. No JVD. CARDIOVASCULAR: Regular rate and rhythm. No murmurs, S3, S4. RESPIRATORY: No accessory muscle use. Clear to auscultation. Breath sounds equal bilaterally. GASTROINTESTINAL: Abdomen soft, non-tender, nondistended. Hepatic and splenic margins not palpable. MUSCULOSKELETAL: Extremities without clubbing, cyanosis, or edema. No obvious deformities. Full range of motion of the upper and lower extremities bilaterally. 2+ pulses bilaterally. NEUROLOGICAL: Awake and alert. No obvious cranial nerve deficits. Motor grossly within normal limits. Five out of 5 muscle strength in the arms and legs. Normal speech. PSYCHIATRIC: Appropriate mood and affect; insight and judgment normal. Data Data Last Documented VS Vital Signs Date Time Temp Pulse Resp B/P (MAP) Pulse Ox O2 Delivery O2 Flow Rate FiO2 05/13/17 12:49 116/71 (86) Orders Orders Electrocardiogram (05/13/17 13:03) B-Type Natriuretic Peptide (05/13/17 13:03) Ckmb (Isoenzyme) Profile (05/13/17 13:03) Complete Blood Count With Diff (05/13/17 13:03) Comprehensive Metabolic Panel (05/13/17 13:03) D-Dimer (05/13/17 13:03) Magnesium (Mg) (05/13/17 13:03) Prothrombin Time / Inr (Pt) (05/13/17 13:03) Act Partial Throm Time (Ptt) (05/13/17 13:03) Troponin I (05/13/17 13:03) Lipase (05/13/17 13:03) Chest, Single Ap (05/13/17 13:03) Ecg Monitoring (05/13/17 13:03) Iv Access Insert/Monitor (05/13/17 13:03) CKMB (05/13/17 13:20) CKMB% (05/13/17 13:20) Ed Discharge Order (05/13/17 15:33) Labs Laboratory Tests Test 11/8/17 13:20 White Blood Count 6.4 TH/MM3 Red Blood Count 3.92 MIL/MM3 Hemoglobin 12.5 GM/DL Hematocrit 36.4 % Mean Corpuscular Volume 92.7 FL Mean Corpuscular Hemoglobin 31.9 PG Mean Corpuscular Hemoglobin Concent 34.4 % Red Cell Distribution Width 13.2 % Platelet Count 340 TH/MM3 Mean Platelet Volume 7.6 FL Neutrophils (%) (Auto) 59.0 % Lymphocytes (%) (Auto) 29.5 % Monocytes (%) (Auto) 8.6 % Eosinophils (%) (Auto) 2.3 % Basophils (%) (Auto) 0.6 % Neutrophils # (Auto) 3.7 TH/MM3 Lymphocytes # (Auto) 1.9 TH/MM3 Monocytes # (Auto) 0.5 TH/MM3 Eosinophils # (Auto) 0.1 TH/MM3 Basophils # (Auto) 0.0 TH/MM3 CBC Comment DIFF FINAL Differential Comment Prothrombin Time 11.3 SEC Prothromb Time International Ratio 1.0 RATIO Activated Partial Thromboplast Time 24.5 SEC D-Dimer Quantitative (PE/DVT) LESS THAN 0.19 MG/L FEU Blood Urea Nitrogen 11 MG/DL Creatinine 0.97 MG/DL Random Glucose 101 MG/DL Total Protein 7.1 GM/DL Albumin 3.7 GM/DL Calcium Level 8.8 MG/DL Magnesium Level 2.0 MG/DL Alkaline Phosphatase 51 U/L Aspartate Amino Transf (AST/SGOT) 16 U/L Alanine Aminotransferase (ALT/SGPT) 21 U/L Total Bilirubin 1.9 MG/DL Sodium Level 138 MEQ/L Potassium Level 3.5 MEQ/L Chloride Level 104 MEQ/L Carbon Dioxide Level 27.0 MEQ/L Anion Gap 7 MEQ/L Estimat Glomerular Filtration Rate 83 ML/MIN Total Creatine Kinase 122 U/L Creatine Kinase MB 1.2 NG/ML Troponin I LESS THAN 0.02 NG/ML B-Type Natriuretic Peptide 5 PG/ML Lipase 93 U/L [facility] Medical Decision Making Medical Screen Exam Complete: Yes Emergency Medical Condition: Yes Medical Record Reviewed: Yes Interpretation(s) CBC & BMP Diagram 05/13/17 13:20 Total Protein 7.1, Albumin 3.7, Calcium Level 8.8, Magnesium Level 2.0, Alkaline Phosphatase 51, Aspartate Amino Transf (AST/SGOT) 16, Alanine Aminotransferase (ALT/SGPT) 21, Total Bilirubin 1.9 H EKG shows sinus rhythm with no sign of acute ischemia or arrhythmia. Last Impressions Chest X-Ray 05/13/17 1303 Signed Impressions: Service Date/Time: Saturday, May 13, 2017 13:32 - CONCLUSION: No acute disease. Ronaldo De Jesus MD FACR Troponin and CK-MB negative. Differential Diagnosis Chest pain versus a typical chest pain versus SVT versus heart palpitations versus PE versus pneumonia Narrative Course 26-year-old female that presents to the ED for evaluation of right-sided chest pain. Patient was properly examined and was found to have signs and symptoms of unclear etiology. Her exam appears to be benign. She does have a history of heart disease. At this time recommendation is for labs and imaging. patient agrees to proceed. This was ordered. Labs and imaging showed no sign of acute disease. D-dimer negative. EKG and troponin negative. Spoke with Dr. Heart over the phone who recommends the patient can follow with primary care doctor. See ED worsening symptoms. Follow with PCP. I spoke with my attending Dr. uMñoz who agrees with this plan. Diagnosis Primary Impression: Atypical chest pain Patient Instructions: General Instructions Additional Instructions: Follow with her primary care doctor. Follow with Dr. Heart. See ED worsening symptoms. Take medication only as needed. You can also take Tylenol as needed. Med/Other Pt SpecificInfo: Prescription(s) given Scripts Naproxen (Naproxen) 250 Mg Tab 250 MG PO BID Y for PAIN SCALE 1 TO 10, #20 TAB 0 Refills Prov: Emily Muñoz MD 05/13/17 Disposition: 01 DISCHARGE HOME Condition: Stable Micheal Cedeno May 13, 2017 14:19
[2017-05-13 14:28] LABS: CKMB 1.2 NG/ML (0.5-3.6)
[2017-05-13] MEDS ORDERED: NAPR250T4 PO (15:34)
--- NOTE | 2017-05-13 19:42 | EKG ---
Date Performed: 05/13/2017 Time Performed: 13:11:30 PTAGE: 26 years EKG: Sinus rhythm NONSPECIFIC T-WAVE ABNORMALITY BORDERLINE ECG No significant change from prior electrocardiogram. NO PREVIOUS TRACING DOCTOR: Ricco Smith Interpretating Date/Time 05/13/2017 19:41:17
== END 2017-05-13 23:11 | disposition home or self-care (01) ==
LOC: NEPE 12:42
DX: R07.89 Other chest pain (principal); R94.31 Abnormal electrocardiogram [ECG] [EKG]
CPT/HCPCS: 71010; 80053; 82550; 82552; 83690; 83735; 83880; 84484; 85025; 85379; 85610; 85730; 93005; 99285

== ENCOUNTER 2017-07-13 20:49 | Emergency (ER) | payer SELFPAY ==
[~2017-07-13 20:49] MED LIST changes: +NAPR250T4 PO
[2017-07-13 20:50] VITALS: BP 135/83; PULSE 60; RESP 16; TEMP 98.5; O2SAT 100
--- NOTE | 2017-07-13 21:31 | RADRPT ---
EXAM DATE/TIME: 07/13/2017 21:19 [facility] COMPARISON: No previous studies available for comparison. INDICATIONS : Chest pain. MEDICAL HISTORY : Supraventricular tachycardia. SURGICAL HISTORY : None. ENCOUNTER: Initial ACUITY: 1 day PAIN SCORE: 8/10 LOCATION: Bilateral chest FINDINGS: PA and lateral views of the chest demonstrate the lungs to be symmetrically aerated without evidence of mass, infiltrate or effusion. The cardiomediastinal contours are unremarkable. Osseous structure s are intact. CONCLUSION: Normal examination. Caleb Bright MD on July 13, 2017 at 21:28 Board Certified Radiologist. This report was verified electronically.
[2017-07-13 22:23] LABS: ALBUMIN 4.1 GM/DL (3.4-5.0); AST (GOT) 14 U/L (15-37); BICARBONATE 28.4 MEQ/L (21.0-32.0); BLOOD UREA NITROGEN 12 MG/DL (7-18); CHLORIDE 103 MEQ/L (98-107); CREATININE 0.91 MG/DL (0.50-1.00); GLOMERULAR FILTRATION RATE 88 ML/MIN (>89); GLUCOSE,RANDOM 84 MG/DL (74-106); LIPASE 102 U/L (73-393); MAGNESIUM 2.1 MG/DL (1.5-2.5); SODIUM (NA) 136 MEQ/L (136-145)
[2017-07-13 22:24] LABS: ALT (GPT) 28 U/L (10-53); INTERNATIONAL NORMALIZED RATIO 1.1 RATIO; PROTHROMBIN TIME - PATIENT 11.1 SEC (9.8-11.6)
[2017-07-13 22:28] LABS: ALKALINE PHOSPHATASE 66 U/L (45-117); TOTAL BILIRUBIN ADULT 0.7 MG/DL (0.2-1.0); TOTAL PROTEIN 7.6 GM/DL (6.4-8.2); TROPONIN I LESS THAN 0.02 NG/ML (0.02-0.05)
[2017-07-13 23:00] LABS: AUTOMATED NEUTROPHIL # 3.4 TH/MM3 (1.8-7.7); BASOPHIL # 0.1 TH/MM3 (0-0.2); EOSINOPHIL # 0.3 TH/MM3 (0-0.4); EOSINOPHIL % 4.5 % (0.0-4.0); HEMATOCRIT 36.8 % (35.0-46.0); LYMPH % 38.8 % (9.0-44.0); LYMPHOCYTE # 2.9 TH/MM3 (1.0-4.8); MEAN CELL VOLUME 92.1 FL (80.0-100.0); MEAN CORPUSCULAR HEMOGLOBIN 32.5 PG (27.0-34.0); MEAN CORPUSCULAR HGB CONC 35.2 % (32.0-36.0); MEAN PLATELET VOLUME 8.1 FL (7.0-11.0); MONO % 9.2 % (0.0-8.0); MONOCYTE # 0.7 TH/MM3 (0-0.9); NEUT % 46.5 % (16.0-70.0); PLATELET COUNT 334 TH/MM3 (150-450); RED BLOOD COUNT 3.99 MIL/MM3 (4.00-5.30); WHITE BLOOD COUNT 7.4 TH/MM3 (4.0-11.0)
--- NOTE | 2017-07-14 01:27 | PD ---
HPI Chief Complaint: Chest Pain Time Seen by Provider: 01:08 Travel History International Travel<30 days: No Contact w/Intl Traveler<30days: No Traveled to known affect area: No History of Present Illness HPI 27-year-old black female with a history of SVT and LGL syndrome presents to the emergency department with complaints of chest pain. She has had pain intermittently now since last evening. She states that it central in her chest. There is no exacerbating or alleviating factors. It is nonexertional. It is not affected by breathing. Mild intensity. Tightness in quality. Patient denies any recent illness. She denies any palpitations, fast heartbeat , dizziness or passing out. Patient denies any history of recent travel or connective tissue disorder.. PFSH Past Medical History Narrative Medical SVT, LGL syndrome Blood Disorders: No Heart Rhythm Problems: Yes (SVT ) Cancer: No Cardiovascular Problems: Yes (SVT, LGL syndrome) Chemotherapy: No Diminished Hearing: No Endocrine: No Gastrointestinal Disorders: No Genitourinary: No Immune Disorder: No Implanted Vascular Access Dvce: No Musculoskeletal: No Neurologic: No Psychiatric: No Reproductive: No Respiratory: No Integumentary: Yes (cellulitis R outer leg ) Immunizations Current: Yes Radiation Therapy: No Tetanus Vaccination: < 5 Years ?: Not LMP: 07/04/17 : 1 Para: 1 Past Surgical History Surgical History: No Previous Surgery Other Surgery: No Family History Narrative Family History Father is healthy. Mother has a history of CHF, hypertension, COPD Social History Alcohol Use: No Tobacco Use: No Substance Use: No Allergies-Medications (Allergen,Severity, Reaction): Coded Allergies: No Known Allergies (Unverified , 04/09/17) Reported Meds & Prescriptions Reported Meds & Active Scripts Active Naproxen 250 Mg Tab 250 Mg PO BID PRN Metoprolol Tartrate 25 Mg Tab 25 Mg PO BID Flecainide (Flecainide Acetate) 50 Mg Tab 50 Mg PO BID Review of Systems General / Constitutional: No: Fever Eyes: No: Visual changes HENT: No: Headaches Cardiovascular: Positive: Chest Pain or Discomfort, No: Palpitations, Irregular Rhythm, Tachycardia Respiratory: No: Cough, Shortness of Breath Gastrointestinal: No: Nausea, Vomiting, Diarrhea, Abdominal Pain Genitourinary: No: Dysuria Musculoskeletal: No: Cramping, Edema, Pain Skin: No Rash Neurologic: No: Weakness Psychiatric: No: Depression Endocrine: No: Polydipsia Hematologic/Lymphatic: No: Easy Bruising Physical Exam Narrative GENERAL: Well-developed, well-nourished in no apparent distress. Nontoxic appearing. HEAD: Normocephalic, atraumatic. EYES: Pupils equal round and reactive. Extraocular motions intact. No scleral icterus. No injection or drainage. ENT: Nose clear. Throat without erythema, tonsillar hypertrophy or exudate. Uvula midline. Airway patent. NECK: Trachea midline. Supple, nontender, moves head freely. No central bony tenderness or spasm. CHEST: Nontender throughout without deformity or crepitance. No retractions or use of accessory muscles. CARDIOVASCULAR: Regular rate and rhythm without murmurs, gallops, or rubs. RESPIRATORY: Clear to auscultation. Breath sounds equal bilaterally. No wheezes , rales, or rhonchi. GASTROINTESTINAL: Abdomen soft, non-tender, nondistended. No hepato-splenomegaly , or palpable masses. No guarding. EXTREMITIES: No clubbing, cyanosis, or edema. No joint tenderness. swelling. No redness, or tenderness. Negative Homans sign. BACK: Nontender without deformity. No flank tenderness. NEUROLOGICAL: Awake, alert and oriented x 3 .Cranial nerves grossly intact. Motor and sensory grossly within normal limits. Normal speech. Data Data Last Documented VS Vital Signs Date Time Temp Pulse Resp B/P (MAP) Pulse Ox O2 Delivery O2 Flow Rate FiO2 07/13/17 20:50 98.5 60 16 135/83 (100) 100 Room Air Orders Orders Electrocardiogram (07/13/17 21:13) Ckmb (Isoenzyme) Profile (07/13/17 21:13) Complete Blood Count With Diff (07/13/17 21:13) Comprehensive Metabolic Panel (07/13/17 21:13) Magnesium (Mg) (07/13/17 21:13) Prothrombin Time / Inr (Pt) (07/13/17 21:13) Act Partial Throm Time (Ptt) (07/13/17 21:13) Troponin I (07/13/17 21:13) Lipase (07/13/17 21:13) Chest, Pa & Lat (07/13/17 21:13) CKMB (07/13/17 21:34) CKMB% (07/13/17 21:34) D-Dimer (07/14/17 01:15) Ed Discharge Order (07/14/17 03:01) Labs Laboratory Tests Test 07/13/17 21:34 07/14/17 01:30 White Blood Count 7.4 TH/MM3 Red Blood Count 3.99 MIL/MM3 Hemoglobin 13.0 GM/DL Hematocrit 36.8 % Mean Corpuscular Volume 92.1 FL Mean Corpuscular Hemoglobin 32.5 PG Mean Corpuscular Hemoglobin Concent 35.2 % Red Cell Distribution Width 13.0 % Platelet Count 334 TH/MM3 Mean Platelet Volume 8.1 FL Neutrophils (%) (Auto) 46.5 % Lymphocytes (%) (Auto) 38.8 % Monocytes (%) (Auto) 9.2 % Eosinophils (%) (Auto) 4.5 % Basophils (%) (Auto) 1.0 % Neutrophils # (Auto) 3.4 TH/MM3 Lymphocytes # (Auto) 2.9 TH/MM3 Monocytes # (Auto) 0.7 TH/MM3 Eosinophils # (Auto) 0.3 TH/MM3 Basophils # (Auto) 0.1 TH/MM3 CBC Comment DIFF FINAL Differential Comment Prothrombin Time 11.1 SEC Prothromb Time International Ratio 1.1 RATIO Activated Partial Thromboplast Time 25.2 SEC Blood Urea Nitrogen 12 MG/DL Creatinine 0.91 MG/DL Random Glucose 84 MG/DL Total Protein 7.6 GM/DL Albumin 4.1 GM/DL Calcium Level 9.0 MG/DL Magnesium Level 2.1 MG/DL Alkaline Phosphatase 66 U/L Aspartate Amino Transf (AST/SGOT) 14 U/L Alanine Aminotransferase (ALT/SGPT) 28 U/L Total Bilirubin 0.7 MG/DL Sodium Level 136 MEQ/L Potassium Level 3.9 MEQ/L Chloride Level 103 MEQ/L Carbon Dioxide Level 28.4 MEQ/L Anion Gap 5 MEQ/L Estimat Glomerular Filtration Rate 88 ML/MIN Total Creatine Kinase 186 U/L Creatine Kinase MB 1.2 NG/ML Troponin I LESS THAN 0.02 NG/ML Lipase 102 U/L D-Dimer Quantitative (PE/DVT) LESS THAN 0.19 MG/L FEU MDM Medical Decision Making Medical Screen Exam Complete: Yes Emergency Medical Condition: Yes Medical Record Reviewed: Yes Interpretation(s) EKG: Sinus bradycardia with a ventricular rate of 53. No acute ST-T wave changes.\ Laboratory Tests Test 07/13/17 21:34 07/14/17 01:30 White Blood Count 7.4 TH/MM3 Red Blood Count 3.99 MIL/MM3 Hemoglobin 13.0 GM/DL Hematocrit 36.8 % Mean Corpuscular Volume 92.1 FL Mean Corpuscular Hemoglobin 32.5 PG Mean Corpuscular Hemoglobin Concent 35.2 % Red Cell Distribution Width 13.0 % Platelet Count 334 TH/MM3 Mean Platelet Volume 8.1 FL Neutrophils (%) (Auto) 46.5 % Lymphocytes (%) (Auto) 38.8 % Monocytes (%) (Auto) 9.2 % Eosinophils (%) (Auto) 4.5 % Basophils (%) (Auto) 1.0 % Neutrophils # (Auto) 3.4 TH/MM3 Lymphocytes # (Auto) 2.9 TH/MM3 Monocytes # (Auto) 0.7 TH/MM3 Eosinophils # (Auto) 0.3 TH/MM3 Basophils # (Auto) 0.1 TH/MM3 CBC Comment DIFF FINAL Differential Comment Prothrombin Time 11.1 SEC Prothromb Time International Ratio 1.1 RATIO Activated Partial Thromboplast Time 25.2 SEC Blood Urea Nitrogen 12 MG/DL Creatinine 0.91 MG/DL Random Glucose 84 MG/DL Total Protein 7.6 GM/DL Albumin 4.1 GM/DL Calcium Level 9.0 MG/DL Magnesium Level 2.1 MG/DL Alkaline Phosphatase 66 U/L Aspartate Amino Transf (AST/SGOT) 14 U/L Alanine Aminotransferase (ALT/SGPT) 28 U/L Total Bilirubin 0.7 MG/DL Sodium Level 136 MEQ/L Potassium Level 3.9 MEQ/L Chloride Level 103 MEQ/L Carbon Dioxide Level 28.4 MEQ/L Anion Gap 5 MEQ/L Estimat Glomerular Filtration Rate 88 ML/MIN Total Creatine Kinase 186 U/L Creatine Kinase MB 1.2 NG/ML Troponin I LESS THAN 0.02 NG/ML Lipase 102 U/L D-Dimer Quantitative (PE/DVT) LESS THAN 0.19 MG/L FEU Differential Diagnosis Differential diagnosis: Arrhythmia, acute coronary syndrome, PE, myocarditis, endocarditis, pericarditis, noncardiac chest pain Narrative Course The patient is resting comfortable in examination room. She does not appear to be in any distress. Vital signs stable. Patient's EKG is negative for any acute arrhythmia or ST elevation. Patient's d-dimer is negative. This is noncardiac chest pain Diagnosis Primary Impression: Non-cardiac chest pain Patient Instructions: General Instructions Additional Instructions: Rest. Increase fluids. 3 Advil every 6 hours. Follow-up with your senior fire protection engineer in one week. Follow-up with a primary care doctor in 1 week. Return to the ER for emergencies. Med/Other Pt SpecificInfo: No Meds Exist/No RX given Disposition: 01 DISCHARGE HOME Condition: Stable Nawaf Muniz Jul 14, 2017 01:27
--- NOTE | 2017-07-14 15:12 | EKG ---
Date Performed: 07/14/2017 Time Performed: 01:25:02 PTAGE: 27 years EKG: SINUS BRADYCARDIA BORDERLINE ECG PREVIOUS TRACING : 05/13/2017 13.11 Compared to prior tracing no significant change DOCTOR: Rigoberto Varma Interpretating Date/Time 07/14/2017 15:12:07
== END 2017-07-14 03:18 | disposition home or self-care (01) ==
LOC: NEPD 20:49
DX: R07.89 Other chest pain (principal); R00.1 Bradycardia, unspecified; I47.1 Supraventricular tachycardia; Z79.899 Other long term (current) drug therapy
CPT/HCPCS: 71046; 80053; 82550; 82552; 83690; 83735; 84484; 85025; 85379; 85610; 85730; 93005

== ENCOUNTER 2017-08-02 21:10 | Observation (INO) | payer OTHER, MEDICAID ==
[~2017-08-02] VITALS: Ht 172.7 cm; Wt 66.2 kg
[2017-08-02 21:13] VITALS: BP 130/74; PULSE 106; RESP 17; TEMP 98.3
[2017-08-02] MEDS ORDERED: DIGO0.12 PO (21:20)
[2017-08-02] MEDS ORDERED: FLEC1TAB8 PO (21:20)
[2017-08-02 21:23] VITALS: RESP 17; O2SAT 100
--- NOTE | 2017-08-02 21:25 | PD ---
HPI Chief Complaint: Chest Pain Time Seen by Provider: 21:21 Travel History International Travel<30 days: No Contact w/Intl Traveler<30days: No Traveled to known affect area: No History of Present Illness HPI 27-year-old female patient with history of SVTs, had been stable on metoprolol following up with Dr. Heart, and was recently changed to digoxin, presents to the ER today brought in by EMS because she had a sudden worsening in palpitations, chest discomfort which she rated a 5 out of 10. She was noted initially by EMS to be having a heart rate of 170. They had given her a small IV fluid bolus and her heart rate came down slowly and is 90 bpm in the ER. She states that the palpitations are improved. She denies any other issues. Modifying Factors: None Associated Signs & Symptoms: Palpitations, chest discomfort, fast heart rate Risk Factors: History of SVT PFSH Past Medical History Blood Disorders: No Heart Rhythm Problems: Yes (SVT ) Cancer: No Cardiovascular Problems: Yes (SVT) Chemotherapy: No Diminished Hearing: No Endocrine: No Gastrointestinal Disorders: No Genitourinary: No Immune Disorder: No Implanted Vascular Access Dvce: No Musculoskeletal: No Neurologic: No Psychiatric: No Reproductive: No Respiratory: No Integumentary: Yes (cellulitis R outer leg ) Immunizations Current: Yes Radiation Therapy: No Influenza Vaccination: No ?: Not LMP: 07/06/2017 : 1 Para: 1 Past Surgical History Other Surgery: No Social History Alcohol Use: No Tobacco Use: No Substance Use: No Allergies-Medications (Allergen,Severity, Reaction): Coded Allergies: No Known Allergies (Unverified Allergy, Unknown, 08/02/17) Reported Meds & Prescriptions Reported Meds & Active Scripts Active Naproxen 250 Mg Tab 250 Mg PO BID PRN Metoprolol Tartrate 25 Mg Tab 25 Mg PO BID Reported Flecainide (Flecainide Acetate) 50 Mg Tab 75 Mg PO BID Digoxin 0.125 Mg Tab 0.125 Mg PO DAILY Review of Systems Except as stated in HPI: all other systems reviewed are Neg Physical Exam Narrative GENERAL: Well-developed young -[place] female patient currently in mild distress. Awake and oriented 3. SKIN: Focused skin assessment warm/dry. HEAD: Atraumatic. Normocephalic. EYES: Pupils equal and round. No scleral icterus. No injection or drainage. ENT: No nasal bleeding or discharge. Mucous membranes pink and moist. NECK: Trachea midline. No JVD. Supple. CARDIOVASCULAR: Regular rate and rhythm. No murmur appreciated. RESPIRATORY: No accessory muscle use. Clear to auscultation. Breath sounds equal bilaterally. GASTROINTESTINAL: Abdomen soft, non-tender, nondistended. Hepatic and splenic margins not palpable. MUSCULOSKELETAL: No obvious deformities. No clubbing. No cyanosis. No edema. NEUROLOGICAL: Awake and alert. No obvious cranial nerve deficits. Motor grossly within normal limits. Normal speech. PSYCHIATRIC: Appropriate mood and affect; insight and judgment normal. Data Data Last Documented VS Vital Signs Date Time Temp Pulse Resp B/P (MAP) Pulse Ox O2 Delivery O2 Flow Rate FiO2 08/02/17 22:00 80 15 113/59 (77) 100 Nasal Cannula 2.00 08/02/17 21:13 98.3 Orders Orders Electrocardiogram (08/02/17 21:21) Basic Metabolic Panel (Bmp) (08/02/17 21:21) Ckmb (Isoenzyme) Profile (08/02/17 21:21) Complete Blood Count With Diff (08/02/17 21:21) Magnesium (Mg) (08/02/17 21:21) Prothrombin Time / Inr (Pt) (08/02/17 21:21) Act Partial Throm Time (Ptt) (08/02/17 21:21) Troponin I (08/02/17 21:21) Chest, Single Ap (08/02/17 21:21) Ecg Monitoring (08/02/17 21:21) Bilateral Bp Monitoring (08/02/17 21:21) Iv Access Insert/Monitor (08/02/17 21:21) Oximetry (08/02/17 21:21) Oxygen Administration (08/02/17 21:21) Sodium Chloride 0.9% Flush (Ns Flush) (08/02/17 21:30) Sodium Chlorid 0.9% 500 Ml Inj (Ns 500 M (08/02/17 21:30) Ed Urine Pregnancytest Poc (08/02/17 21:21) Digoxin (08/02/17 21:21) CKMB (08/02/17 21:20) CKMB% (08/02/17 21:20) Admit Order (Ed Use Only) (08/02/17 23:40) Labs Laboratory Tests Test 08/02/17 21:20 White Blood Count 6.8 TH/MM3 Red Blood Count 3.84 MIL/MM3 Hemoglobin 12.0 GM/DL Hematocrit 34.8 % Mean Corpuscular Volume 90.6 FL Mean Corpuscular Hemoglobin 31.4 PG Mean Corpuscular Hemoglobin Concent 34.6 % Red Cell Distribution Width 13.0 % Platelet Count 310 TH/MM3 Mean Platelet Volume 7.6 FL Neutrophils (%) (Auto) 50.3 % Lymphocytes (%) (Auto) 34.6 % Monocytes (%) (Auto) 10.3 % Eosinophils (%) (Auto) 3.8 % Basophils (%) (Auto) 1.0 % Neutrophils # (Auto) 3.4 TH/MM3 Lymphocytes # (Auto) 2.4 TH/MM3 Monocytes # (Auto) 0.7 TH/MM3 Eosinophils # (Auto) 0.3 TH/MM3 Basophils # (Auto) 0.1 TH/MM3 CBC Comment DIFF FINAL Differential Comment Prothrombin Time 11.0 SEC Prothromb Time International Ratio 1.1 RATIO Activated Partial Thromboplast Time 24.7 SEC Blood Urea Nitrogen 11 MG/DL Creatinine 0.93 MG/DL Random Glucose 94 MG/DL Calcium Level 8.7 MG/DL Magnesium Level 2.1 MG/DL Sodium Level 140 MEQ/L Potassium Level 3.4 MEQ/L Chloride Level 106 MEQ/L Carbon Dioxide Level 30.0 MEQ/L Anion Gap 4 MEQ/L Estimat Glomerular Filtration Rate 86 ML/MIN Total Creatine Kinase 150 U/L Creatine Kinase MB 0.9 NG/ML Troponin I LESS THAN 0.02 NG/ML Digoxin Level 0.4 NG/ML MDM Medical Decision Making Medical Screen Exam Complete: Yes Emergency Medical Condition: Yes Medical Record Reviewed: Yes Interpretation(s) EKG shows NSR, no ST elevation or depression, and no arrhythmias. No significant T-wave inversions. No delta waves or prolongation of QTC. Laboratory Tests Test 08/02/17 21:20 Red Blood Count 3.84 MIL/MM3 (4.00-5.30) Hematocrit 34.8 % (35.0-46.0) Monocytes (%) (Auto) 10.3 % (0.0-8.0) Potassium Level 3.4 MEQ/L (3.5-5.1) Anion Gap 4 MEQ/L (5-15) Estimat Glomerular Filtration Rate 86 ML/MIN (>89) Troponin I LESS THAN 0.02 NG/ML Digoxin Level 0.4 NG/ML (0.8-2.0) Last 24 hours Impressions Chest X-Ray 08/02/172120 Signed Impressions: Service Date/Time: Wednesday, August 02, 2017 21:52 - CONCLUSION: No evidence of acute cardiopulmonary disease. Mikel Pereira MD Differential Diagnosis Palpitations, fast heart rate, chest discomfort: Dysrhythmias versus ACS versus anxiety attack Narrative Course Palpitations and fast heart rate had improved by the time she got to the ER. Vital signs are stable in the ER. EKG did not show any significant dysrhythmias. Lab work was fairly unremarkable. Her potassium which is mildly low potassium was given by mouth in the ER. She is continuing to have chest discomfort in the ER. At this point, considering the dysrhythmia and chest discomfort, my plan would be to admit her for further evaluation. Case was discussed with Dr. Stone for admission. Diagnosis Primary Impression: Heart palpitations Additional Impression: Atypical chest pain Admitting Information Admitting Physician Requests: Admit Thomas Moyer MD Aug 02, 2017 21:25
[2017-08-02] MEDS ORDERED: SODIUM CHLORIDE 0.9% FLUSH 10 ML FLUSH IVF PRN (21:30)
[2017-08-02] MEDS ORDERED: SODIUM CHLORID 0.9% 500 ML INJ 500 ML IV ONE (21:30)
[2017-08-02 21:41] LABS: AUTOMATED NEUTROPHIL # 3.4 TH/MM3 (1.8-7.7); BASOPHIL # 0.1 TH/MM3 (0-0.2); EOSINOPHIL # 0.3 TH/MM3 (0-0.4); EOSINOPHIL % 3.8 % (0.0-4.0); HEMATOCRIT 34.8 % (35.0-46.0); LYMPH % 34.6 % (9.0-44.0); LYMPHOCYTE # 2.4 TH/MM3 (1.0-4.8); MEAN CELL VOLUME 90.6 FL (80.0-100.0); MEAN CORPUSCULAR HEMOGLOBIN 31.4 PG (27.0-34.0); MEAN CORPUSCULAR HGB CONC 34.6 % (32.0-36.0); MEAN PLATELET VOLUME 7.6 FL (7.0-11.0); MONO % 10.3 % (0.0-8.0); MONOCYTE # 0.7 TH/MM3 (0-0.9); NEUT % 50.3 % (16.0-70.0); PLATELET COUNT 310 TH/MM3 (150-450); RED BLOOD COUNT 3.84 MIL/MM3 (4.00-5.30); WHITE BLOOD COUNT 6.8 TH/MM3 (4.0-11.0)
[2017-08-02 21:54] LABS: INTERNATIONAL NORMALIZED RATIO 1.1 RATIO
[2017-08-02 22:00] VITALS: BP 113/59; PULSE 80; RESP 15; O2SAT 100
[2017-08-02 22:00] LABS: BLOOD UREA NITROGEN 11 MG/DL (7-18); CALCIUM 8.7 MG/DL (8.5-10.1); CHLORIDE 106 MEQ/L (98-107); CREATININE 0.93 MG/DL (0.50-1.00); GLOMERULAR FILTRATION RATE 86 ML/MIN (>89); GLUCOSE,RANDOM 94 MG/DL (74-106); MAGNESIUM 2.1 MG/DL (1.5-2.5); SODIUM (NA) 140 MEQ/L (136-145)
--- NOTE | 2017-08-02 22:01 | RADRPT ---
EXAM DATE/TIME: 08/02/2017 21:52 [facility] COMPARISON: CHEST PA & LAT, July 13, 2017, 21:19. INDICATIONS : Chest pain. MEDICAL HISTORY : LGL Syndrome SURGICAL HISTORY : None. ENCOUNTER: Initial ACUITY: 1 day PAIN SCORE: 6/10 LOCATION: Bilateral chest FINDINGS: A single view of the chest demonstrates the lungs to be symmetrically aerated without evidence of mas s, infiltrate or effusion. The cardiomediastinal contours are unremarkable. Osseous structures are intact. CONCLUSION: No evidence of acute cardiopulmonary disease. Mikel Pereira MD on August 02, 2017 at 21:58 Board Certified Radiologist. This report was verified electronically.
[2017-08-02 22:15] LABS: DIGOXIN 0.4 NG/ML (0.8-2.0); TROPONIN I LESS THAN 0.02 NG/ML (0.02-0.05)
[2017-08-02] MEDS ORDERED: SODIUM CHLORIDE 0.9% 1000 ML BAG OTHER ONE (23:43)
--- NOTE | 2017-08-02 23:43 | HHI.HP ---
[facility] Service [facility] Primary Care Physician Non-Staff Admission Diagnosis chest pains/SVT Diagnoses: (1) SVT (supraventricular tachycardia) Diagnosis: Principal (2) Chest pain Diagnosis: Principal (3) Hypokalemia Diagnosis: Principal Travel History International Travel<30 Days: No Contact w/Intl Traveler <30 Da: No Traveled to Known Affected Are: No History of Present Illness This is a 27-year-old female with a PMH of SVT who was brought to the ER by EMS secondary to complaints of palpitations and chest pain. Per patient she's had intermittent palpitations for approx 2wks, follows w/ Dr. Heart, seen in office and started on Digoxin. States Metoprolol discontinued however remains on Flecainide. Reports compliance w/ medications. Today w/ persistent c/o palpitations and chest tightness, unrelieved by medications. Reports chest pain is substernal, 6/10, non-radiating, associated w/ palpitations. Per EMS, HR 170's, s/p IVF w/ improvement. On arrival, BP 130/74, HR 106, O2 sat 100% on 2L NC, Afebrile. CBC essentially unremarkable. Chemistry unremarkable except for K+ 3.4. Mg normal. Trop negative. INR 1.1. Digoxin 0.4. CXR with no acute findings. Review of Systems Except as stated in HPI: all other systems reviewed are Neg ROS: 14 point review of systems otherwise negative. Past Family Social History Past Medical History PMH: SVT Past Surgical History PAST SURGICAL HISTORY: None Allergies: Coded Allergies: No Known Allergies (Unverified Allergy, Unknown, 08/02/17) Family History PAST FAMILY HISTORY: Reviewed. No h/o DM or CAD Social History PAST SOCIAL HISTORY: Negative for alcohol, tobacco or drugs. Physical Exam Vital Signs Vital Signs Date Time Temp Pulse Resp B/P (MAP) Pulse Ox O2 Delivery O2 Flow Rate FiO2 08/02/17 22:00 80 15 113/59 (77) 100 Nasal Cannula 2.00 08/02/17 21:23 17 100 Nasal Cannula 2.00 08/02/17 21:23 100 Nasal Cannula 2.00 08/02/17 21:13 98.3 106 17 130/74 (92) Physical Exam PE: GENERAL: Very pleasant young black female in no acute distress. HEENT: PERRLA, EOMI. No scleral icterus or conjunctival pallor. No lid lag or facial droop. CARDIOVASCULAR: Regular rate and rhythm, HR 80 to 90s. No obvious murmurs to auscultation. No chest tenderness to palpation. RESPIRATORY: No obvious rhonchi or wheezing. Clear to auscultation. Breath sounds equal bilaterally. GASTROINTESTINAL: Abdomen soft, non-tender, nondistended. BS normal. MUSCULOSKELETAL: Extremities without clubbing, cyanosis, or edema. No obvious deformities. NEUROLOGICAL: Awake, alert and oriented x4. No focal neurologic deficits. Moving both upper and lower extremities spontaneously. Laboratory Laboratory Tests Test 08/02/17 21:20 White Blood Count 6.8 Red Blood Count 3.84 Hemoglobin 12.0 Hematocrit 34.8 Mean Corpuscular Volume 90.6 Mean Corpuscular Hemoglobin 31.4 Mean Corpuscular Hemoglobin Concent 34.6 Red Cell Distribution Width 13.0 Platelet Count 310 Mean Platelet Volume 7.6 Neutrophils (%) (Auto) 50.3 Lymphocytes (%) (Auto) 34.6 Monocytes (%) (Auto) 10.3 Eosinophils (%) (Auto) 3.8 Basophils (%) (Auto) 1.0 Neutrophils # (Auto) 3.4 Lymphocytes # (Auto) 2.4 Monocytes # (Auto) 0.7 Eosinophils # (Auto) 0.3 Basophils # (Auto) 0.1 CBC Comment DIFF FINAL Differential Comment Prothrombin Time 11.0 Prothromb Time International Ratio 1.1 Activated Partial Thromboplast Time 24.7 Blood Urea Nitrogen 11 Creatinine 0.93 Random Glucose 94 Calcium Level 8.7 Magnesium Level 2.1 Sodium Level 140 Potassium Level 3.4 Chloride Level 106 Carbon Dioxide Level 30.0 Anion Gap 4 Estimat Glomerular Filtration Rate 86 Total Creatine Kinase 150 Creatine Kinase MB 0.9 Troponin I LESS THAN 0.02 Digoxin Level 0.4 Result Diagram: 08/02/17211908/02/172119 Caprini VTE Risk Assessment Caprini VTE Risk Assessment: No/Low Risk (score <= 1) Caprini Risk Assessment Model Point Value = 1 Point Value = 2 Point Value = 3 Point Value = 5 Age 41-60 Minor surgery BMI > 25 kg/m2 Swollen legs Varicose veins or History of unexplained or recurrent spontaneous Oral contraceptives or hormone replacement Sepsis (< 1 month) Serious lung disease, including pneumonia (< 1 month) Abnormal pulmonary function Acute myocardial infarction Congestive heart failure (< 1 month) History of inflammatory bowel disease Medical patient at bed rest Age 61-74 Arthroscopic surgery Major open surgery (> 45 min) Laparoscopic surgery (> 45 min) Malignancy Confined to bed (> 72 hours) Immobilizing plaster cast Central venous access Age >= 75 History of VTE Family history of VTE Factor V Leiden Prothrombin [id number] Lupus anticoagulant Anticardiolipin antibodies Elevated serum homocysteine Heparin-induced thrombocytopenia Other congenital or acquired thrombophilia Stroke (< 1 month) Elective arthroplasty Hip, pelvis, or leg fracture Acute spinal cord injury (< 1 month) Prophylaxis Regimen Total Risk Factor Score Risk Level Prophylaxis Regimen 0-1 Low Early ambulation 2 Moderate Order ONE of the following: *Sequential Compression Device (SCD) *Heparin 5000 units SQ BID 3-4 Higher Order ONE of the following medications: *Heparin 5000 units SQ TID *Enoxaparin/Lovenox 40 mg SQ daily (WT < 150 kg, CrCl > 30 mL/min) *Enoxaparin/Lovenox 30 mg SQ daily (WT < 150 kg, CrCl > 10-29 mL/min) *Enoxaparin/Lovenox 30 mg SQ BID (WT < 150 kg, CrCl > 30 mL/min) AND/OR *Sequential Compression Device (SCD) 5 or more Highest Order ONE of the following medications: *Heparin 5000 units SQ TID (Preferred with Epidurals) *Enoxaparin/Lovenox 40 mg SQ daily (WT < 150 kg, CrCl > 30 mL/min) *Enoxaparin/Lovenox 30 mg SQ daily (WT < 150 kg, CrCl > 10-29 mL/min) *Enoxaparin/Lovenox 30 mg SQ BID (WT < 150 kg, CrCl > 30 mL/min) AND *Sequential Compression Device (SCD) Assessment and Plan Problem List: (1) SVT (supraventricular tachycardia) ICD Code: I47.1 - Supraventricular tachycardia (2) Chest pain ICD Code: R07.9 - Chest pain, unspecified (3) Hypokalemia ICD Code: E87.6 - Hypokalemia Assessment and Plan A/P: 1. SVT: h/o SVT w/ recurrent episodes, associated w/ palpitations/chest pain. HR 170's per EMS, currently 80-90's. Follows w/ Dr. Heart as outpatient, will consult for further evaluation/recommendations, likely needs Holter monitoring. Admit to [facility], place on telemetry. Digoxin subtherapeutic, will resume home medications. IVF for hydration. 2. Chest Pain: associated w/ episodes of SVT, eval for ACS however unlikely due to ischemia. Initial trop negative, check serial cardiac enzymes, place on telemetry as above. CXR with no acute findings, images reviewed by me. 3. Hypokalemia: K+ 3.4, possibly contributing to arrhythmia, although mild. Will replace and recheck. 4. DVT Prophylaxis: SCD/teds. 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 6. Cussed at length with ER physician, labs/imaging/records reviewed by me. Dolores Stone MD Aug 02, 2017 23:43
[2017-08-02] MEDS ORDERED: PILL SPLITTER OTHER PRN (23:45)
[2017-08-02] MEDS ORDERED: BISACODYL 10 MG SUPP RECTAL PRN (23:45)
[2017-08-02] MEDS ORDERED: LACTULOSE SYRUP 20 GM/30 ML CUP PO PRN (23:45)
[2017-08-02] MEDS ORDERED: ONDANSETRON HCL 4 MG/2 ML VIAL IVP PRN (23:45)
[2017-08-02] MEDS ORDERED: SODIUM CHLORIDE 0.9% FLUSH 10 ML FLUSH IV FLUSH PRN (23:45)
[2017-08-02] MEDS ORDERED: MAGNESIUM HYDROXIDE SUSP 30 ML CUP PO PRN (23:45)
[2017-08-02] MEDS ORDERED: SENNOSIDES 8.6 MG TAB PO PRN (23:45)
[2017-08-02] MEDS ORDERED: ACETAMINOPHEN 325 MG TAB PO PRN (23:45)
[2017-08-02] MEDS ORDERED: POTASSIUM CHLORIDE 20 MEQ CONTROLLED RELEASE TAB PO ONE (23:45)
[2017-08-02] MEDS ORDERED: ACETAMINOPHEN/HYDROcodone 325 MG/5 MG TAB PO PRN (23:45)
[2017-08-02] MEDS ORDERED: MORPHINE SULFATE 2 MG/ML INJ IV PUSH PRN (23:45)
[2017-08-03] VITALS (10 sets, daily range): BP systolic 97–115; BP diastolic 53–77; PULSE 62–94; RESP 16–20; TEMP 97–98.9; O2SAT 98–100
[2017-08-03] MEDS: SODIUM CHLOR 0.9% 1000 ML INJ 1,000 ML IV SCH ×3 (00:05→21:00)
[2017-08-03] MEDS: SODIUM CHLORIDE 0.9% FLUSH 10 ML FLUSH IV FLUSH SCH ×2 (09:00→21:00)
[2017-08-03] MEDS ORDERED: METOPROLOL TARTRATE 25 MG TAB PO SCH (09:00)
[2017-08-03] MEDS: FLECAINIDE ACETATE 100 MG TAB PO SCH ×2 (10:00→21:00)
[2017-08-03] MEDS: DIGOXIN 0.125 MG TAB PO SCH (10:01)
[2017-08-03] MEDS: DOCUSATE SODIUM 50 MG/SENNA 8.6 MG TAB PO SCH ×2 (10:01→21:00)
--- NOTE | 2017-08-03 11:09 | HHI.PR ---
Subjective Remarks Follow-up for supraventricular tachycardia. Patient is currently doing well. No chest pain, shortness of breath, fever or chills. She reports that her SVT was well controlled on metoprolol and flecainide. However metoprolol was stopped due to hypotension. She was started on digoxin recently. Despite using her medications, she had symptomatic SVT which prompted this admission. Objective Vitals Vital Signs Date Time Temp Pulse Resp B/P (MAP) Pulse Ox O2 Delivery O2 Flow Rate FiO2 08/03/17 08:00 97.0 63 20 97/53 (68) 100 08/03/17 03:38 97.8 74 18 109/64 (79) 100 08/03/17 00:44 98.1 82 18 104/63 (77) 98 08/03/17 00:06 75 16 112/64 (80) 100 Room Air 08/02/17 22:00 80 15 113/59 (77) 100 Nasal Cannula 2.00 08/02/17 21:23 17 100 Nasal Cannula 2.00 08/02/17 21:23 100 Nasal Cannula 2.00 08/02/17 21:13 98.3 106 17 130/74 (92) I/O 08/02/17 08/02/17 08/02/17 08/03/17 08/03/17 08/03/17 07:00 15:00 23:00 07:00 15:00 23:00 Intake Total 500 ml Balance 500 ml Intake IV Total 500 ml # Voids 1 Result Diagram: 08/02/17211908/02/172119 Imaging Last Impressions Chest X-Ray 08/02/172120 Signed Impressions: Service Date/Time: Wednesday, August 02, 2017 21:52 - CONCLUSION: No evidence of acute cardiopulmonary disease. Mikel Pereira MD Objective Remarks GENERAL: Alert, oriented 3, NAD. SKIN: Warm and dry. HEAD: Normocephalic. EYES: No scleral icterus. No injection or drainage. NECK: Supple, trachea midline. No JVD or lymphadenopathy. CARDIOVASCULAR: Regular rate and rhythm without murmurs, gallops, or rubs. RESPIRATORY: Breath sounds equal bilaterally. No accessory muscle use. GASTROINTESTINAL: Abdomen soft, non-tender, nondistended. MUSCULOSKELETAL: No cyanosis, or edema. BACK: Nontender without obvious deformity. No CVA tenderness. Procedures None A/P Problem List: (1) SVT (supraventricular tachycardia) ICD Code: I47.1 - Supraventricular tachycardia (2) Chest pain ICD Code: R07.9 - Chest pain, unspecified (3) Hypokalemia ICD Code: E87.6 - Hypokalemia Assessment and Plan This is a 27-year-old female with a PMH of SVT who was brought to the ER by EMS secondary to complaints of palpitations and chest pain. Per patient she's had intermittent palpitations for approx 2wks, follows w/ Dr. Heart, seen in office and started on Digoxin. States Metoprolol discontinued however remains on Flecainide. Reports compliance w/ medications. - Supraventricular tachycardia - Appreciate cardiology input. Electrophysiology is also consulted - Continue digoxin 0.125 mg by mouth daily and flecainide 75 mg by mouth twice a day. - Likely EP study and intervention tomorrow 08/04/2017. - Transferred to [facility] telemetry - Chest pain - troponins 0.02, 0.03 and 0.02. - Mild hypokalemia - potassium 3.4 improved to 3.7. Magnesium 2.1. Full code. SCDs. Discussed with Dr. Ham (electrophysiology) Bea Islas DO Aug 03, 2017 11:09 am
[2017-08-03 14:08] LABS: AUTOMATED NEUTROPHIL # 3.6 TH/MM3 (1.8-7.7); BASOPHIL # 0.1 TH/MM3 (0-0.2); BASOPHIL % 0.9 % (0.0-2.0); EOSINOPHIL # 0.2 TH/MM3 (0-0.4); EOSINOPHIL % 2.7 % (0.0-4.0); HEMATOCRIT 38.4 % (35.0-46.0); HEMOGLOBIN 13.1 GM/DL (11.6-15.3); LYMPH % 31.2 % (9.0-44.0); LYMPHOCYTE # 2.1 TH/MM3 (1.0-4.8); MEAN CORPUSCULAR HEMOGLOBIN 31.4 PG (27.0-34.0); MEAN CORPUSCULAR HGB CONC 34.2 % (32.0-36.0); MONO % 10.2 % (0.0-8.0); MONOCYTE # 0.7 TH/MM3 (0-0.9); PLATELET COUNT 336 TH/MM3 (150-450); RED BLOOD COUNT 4.18 MIL/MM3 (4.00-5.30); RED CELL DISTRIBUTION WIDTH 13.4 % (11.6-17.2); WHITE BLOOD COUNT 6.6 TH/MM3 (4.0-11.0)
[2017-08-03 14:31] LABS: ALBUMIN 4.1 GM/DL (3.4-5.0); ALT (GPT) 19 U/L (10-53); AST (GOT) 14 U/L (15-37); BICARBONATE 27.6 MEQ/L (21.0-32.0); BLOOD UREA NITROGEN 7 MG/DL (7-18); CALCIUM 8.8 MG/DL (8.5-10.1); CHLORIDE 106 MEQ/L (98-107); CREATININE 0.79 MG/DL (0.50-1.00); GLOMERULAR FILTRATION RATE 104 ML/MIN (>89); GLUCOSE,RANDOM 65 MG/DL (74-106); SODIUM (NA) 141 MEQ/L (136-145)
[2017-08-03 14:35] LABS: ALKALINE PHOSPHATASE 100 U/L (45-117); TOTAL BILIRUBIN ADULT 1.4 MG/DL (0.2-1.0); TOTAL PROTEIN 7.8 GM/DL (6.4-8.2); TROPONIN I LESS THAN 0.02 NG/ML (0.02-0.05)
--- NOTE | 2017-08-03 19:42 | EKG ---
Date Performed: 08/02/2017 Time Performed: 21:25:00 PTAGE: 27 years EKG: Sinus rhythm Since previous tracing, no significant change noted NORMAL ECG PREVIOUS TRACING : 07/14/2017 07.30.01 DOCTOR: Marcus Renee Interpretating Date/Time 08/03/2017 19:40:40
[2017-08-04] VITALS (11 sets, daily range): BP systolic 108–126; BP diastolic 58–76; PULSE 66–92; RESP 18–20; TEMP 98.1–99.1; O2SAT 100
[2017-08-04] MEDS: SODIUM CHLOR 0.9% 1000 ML INJ 1,000 ML IV SCH ×2 (05:39→09:12)
--- NOTE | 2017-08-04 05:50 | MB ---
cc: TINO HEART MD, HANSCY M.D. DATE OF CONSULTATION 08/03/2017 ELECTROPHYSIOLOGY CONSULT REASON FOR CONSULTATION Supraventricular tachycardia. HISTORY OF PRESENT ILLNESS Ms. Tidwell is a 27-year-old -Greek female with history of tachyarrhythmia, recurrent episodes of supraventricular tachyarrhythmia, was put previously on flecainide. The patient could not taking the medication. She was started on metoprolol. Metoprolol was discontinued and the patient was put on flecainide and digoxin. For the past couple of days she still was having with recurrent episodes of tachyarrhythmia, required emergency room visit. I was consulted for evaluation and management. The chart was reviewed. The patient was evaluated. ALLERGIES None. SOCIAL HISTORY Negative for smoking and drinking. FAMILY HISTORY Noncontributory to her current medical condition. MEDICATIONS 1. Flecainide. 2. Digoxin. REVIEW OF SYSTEMS She refers currently no chest pain, no chest discomfort. She referred multiple episodes of tachyarrhythmia. No fever. PHYSICAL EXAMINATION GENERAL: Alert, fully oriented. VITAL SIGNS: Her blood pressure 108/77, pulse 80, respiratory rate 18. LUNGS: Ventilated. CARDIOVASCULAR: S1-S2. No gallop. No murmur. ABDOMEN: Soft. No mass. No bruit. EXTREMITIES: With no edema. ELECTROCARDIOGRAM Sinus rhythm. No pre-excitation. LABORATORY DATA Hemoglobin 13.1, white blood cell 6.6. Potassium 3.7, creatinine is 0.79. Troponin less than 0.02, INR 1.1. Digoxin 0.4. ASSESSMENT AND RECOMMENDATIONS Ms. Tidwell has recurrent episodes of tachyarrhythmia. She failed multiple medications. I discussed the case extensively with Dr. Tino Heart over the phone and with the patient also. Electrophysiology study and ablation were discussed. The risks, the nature and the benefit of the procedure are clearly stated to her. The risks include pneumothorax, cardiac perforation, stroke and even . The patient understood and agreed to proceed. Electrophysiology study will be performed tomorrow afternoon. Nishant Ham MD HS/SSB /6:18 PM /5:40 AM
[2017-08-04] MEDS: SODIUM CHLORIDE 0.9% FLUSH 10 ML FLUSH IV FLUSH SCH ×2 (09:00→21:40)
[2017-08-04] MEDS: FLECAINIDE ACETATE 100 MG TAB PO SCH ×2 (09:12→21:40)
[2017-08-04] MEDS: DOCUSATE SODIUM 50 MG/SENNA 8.6 MG TAB PO SCH ×2 (09:12→21:40)
[2017-08-04] MEDS: DIGOXIN 0.125 MG TAB PO SCH (09:12)
--- NOTE | 2017-08-04 16:31 | HHI.PR ---
Subjective Remarks Follow-up for supraventricular tachycardia. Patient is doing well. Overnight she did have palpitation and chest discomfort. Currently asymptomatic. Waiting to be transferred to [facility] and possible EP intervention today. Objective Vitals Vital Signs Date Time Temp Pulse Resp B/P (MAP) Pulse Ox O2 Delivery O2 Flow Rate FiO2 08/04/17 15:47 98.3 70 18 124/76 (92) 100 08/04/17 12:53 98.9 80 18 126/69 (88) 100 08/04/17 10:08 98.1 74 18 118/70 (86) 08/04/17 09:15 80 08/04/17 04:06 98.8 73 18 108/58 (75) 100 08/04/17 00:50 18 08/03/17 23:12 98.9 71 18 114/55 (74) 99 08/03/17 20:41 98.5 79 18 115/59 (77) 100 I/O 08/03/17 08/03/17 08/03/17 08/04/17 08/04/17 08/04/17 07:00 15:00 23:00 07:00 15:00 23:00 Intake Total 1000 ml 0 ml Balance 1000 ml 0 ml Intake Oral 200 ml 0 ml IV Total 800 ml # Voids 1 6 1 # Bowel Movements 1 1 Result Diagram: 08/03/17 1230 08/03/17 1230 Imaging Last Impressions Chest X-Ray 08/02/172120 Signed Impressions: Service Date/Time: Wednesday, August 02, 2017 21:52 - CONCLUSION: No evidence of acute cardiopulmonary disease. Mikel Pereira MD Objective Remarks GENERAL: Alert, oriented 3, NAD. SKIN: Warm and dry. HEAD: Normocephalic. EYES: No scleral icterus. No injection or drainage. NECK: Supple, trachea midline. No JVD or lymphadenopathy. CARDIOVASCULAR: Regular rate and rhythm without murmurs, gallops, or rubs. RESPIRATORY: Breath sounds equal bilaterally. No accessory muscle use. GASTROINTESTINAL: Abdomen soft, non-tender, nondistended. MUSCULOSKELETAL: No cyanosis, or edema. BACK: Nontender without obvious deformity. No CVA tenderness. Procedures None A/P Problem List: (1) SVT (supraventricular tachycardia) ICD Code: I47.1 - Supraventricular tachycardia (2) Chest pain ICD Code: R07.9 - Chest pain, unspecified (3) Hypokalemia ICD Code: E87.6 - Hypokalemia Assessment and Plan This is a 27-year-old female with a PMH of SVT who was brought to the ER by EMS secondary to complaints of palpitations and chest pain. Per patient she's had intermittent palpitations for approx 2wks, follows w/ Dr. Heart, seen in office and started on Digoxin. States Metoprolol discontinued however remains on Flecainide. Reports compliance w/ medications. - Supraventricular tachycardia - EP input appreciated. - Continue digoxin 0.125 mg by mouth daily and flecainide 75 mg by mouth twice a day. - Likely EP study and intervention today 08/04/2017. - Transferred to [facility] telemetry - Chest pain - troponins 0.02, 0.03 and 0.02. - Mild hypokalemia - potassium 3.4 improved to 3.7. Magnesium 2.1. Full code. SCDs. Discussed with Dr. Ham (electrophysiology) Bea Islas DO Aug 04, 2017 16:31
[2017-08-05] VITALS (31 sets, daily range): BP systolic 98–130; BP diastolic 58–75; PULSE 62–105; RESP 14–20; TEMP 97.7–98.8; O2SAT 99–100
[2017-08-05] MEDS: SODIUM CHLOR 0.9% 1000 ML INJ 1,000 ML IV SCH ×3 (01:39→21:48)
[2017-08-05] MEDS ORDERED: ISOPROTERENOL HCL 1 MG/5 ML AMP ONE (07:26)
[2017-08-05] MEDS ORDERED: BACITRACIN OINT 0.9 GM PKT TOP ONE (08:30)
[2017-08-05] MEDS ORDERED: SODIUM CHLOR 0.9% 250 ML INJ 250 ML IV PRN (08:30)
[2017-08-05] MEDS ORDERED: METOCLOPRAMIDE HCL 10 MG/2 ML VIAL IV PUSH PRN (08:30)
[2017-08-05] MEDS ORDERED: LORazepam 2 MG/ML VIAL IV PUSH PRN (08:30)
[2017-08-05] MEDS ORDERED: ATROPINE SULFATE 1 MG/ML VIAL IV PUSH PRN (08:30)
--- NOTE | 2017-08-05 08:33 | CATHPROC ---
Patient Name: BINDU FU Study #: [id number] Initial MD: Nishant Ham Date of : 1990 Study Date: 08/05/2017 Cardiac Catheterization Report 08/05/2017 8:33:12 AM Financial #: [id number] 1 of 7 Patient Name: BINDU FU Study #: [id number] Initial MD: Nishant Ham Date of : 1990 Study Date: 08/05/2017 Entire Case Report Patient Information Patient Name BINDU FU Date of 1990 Age 27 years Financial # [id number] Gender F AlternateID Lab Number 2 Room Number 243 Height (in) 68.0 Height (cm) 172.7 BSA 1.77 Weight (lbs) 143.0 Weight (kg) 65.0 Patient Address/Phone Number Home Address [facility] Home Phone Number [address] [facility] [facility] [address] [place], [place] [id number] Study Information Study Number Admission Scheduled Start Study Start [id number] Aug 02 2017 11:42PM 08/04/2017 Aug 05 2017 7:06AM [place] [facility] Electrophysiology Study Admit Source Facility Department Other [facility] - Hydroponics Worker Physician and Clinical Staff Initial [place] Experimental Box Tester Elis Singleton,PROFESSOR OF RELIGIOUS STUDIES TECH2 Experimental Box Tester Cande Schuler,RT(R) TECH2 Other Anesthesia, ENVIRONMENTAL WEB CRAWLER Recorder Lexus Coy,DANIKA Scrub Ivan JenningsRT(R) 08/05/2017 8:33:12 AM Financial #: [id number] 2 of 7 Patient Name: BINDU FU Study #: [id number] Initial MD: Nishant Ham Date of : 1990 Study Date: 08/05/2017 Equipment Time Pot Fisher Description Size Mfg Part Number Used/Scraped [id number] 07:07 [employer]ES PACK, CCL CUSTOM * Used *[id number] 07:07 MEDLINE PACER VARGAS, LIMB * 2530 *[id number] Used [id number] 07:07 [employer],WARM AIR CCL * Used *[id number] 07:07 [employer] MEDICAL CATHETER, JSN, QUAD FR 5 Used *[id number] 07:07 [employer] MEDICAL CATHETER, JSN, QUAD FR 5 Used *[id number] 07:07 [employer] MEDICAL CATHETER, JSN, QUAD FR 5 Used *[id number] 07:07 [employer] MEDICAL CATHETER, JSN, QUAD FR 5 Used *[id number] 07:07 [employer] MEDICAL ELECTRODE KIT, ZENAIDA X SURFACE * Used *[id number] 120127 07:07 [employer] MEDICAL SHEATH, EPS, FR5 FAST CATH FR 5 Used *[id number] 07:07 [employer] MEDICAL SHEATH, EPS, FR5 FAST CATH FR 5 Used *[id number] 07:07 [employer] MEDICAL SHEATH, EPS, FR5 FAST CATH FR 5 Used *[id number] [id number] 07:08 [employer] MEDICAL SHEATH, EPS, FR6 FAST CATH FR 6 Used *[id number] 07:08 [employer] MEDICAL SHEATH, EPS, FR8 FAST CATH FR 8 Used *[id number] [facility] PAD, ELECTROSURGICAL 07:07 * [id number] *[id number] Used SURGICAL GROUNDING (BLUE) Insurance Information Insurance Payor Medicaid Third Green Party Third Green Party Number MEDICAID SHARE OF [facility] History: Risk Factors Family History of Hypertension Dyslipidemia Previous VA Previous Heart Failure Premature CAD No No Yes No No Prior Valve Prior PCI Prior CABG Surgery No No No Cerebrovascular Peripheral Artery Chronic Lung On Dialysis Diabetes Disease Disease Disease No No No No No 08/05/2017 8:33:12 AM Financial #: [id number] 3 of 7 Patient Name: BINDU FU Study #: [id number] Initial MD: Nishant Ham Date of : 1990 Study Date: 08/05/2017 Medication Medication Total Dose (Bolus/Oral) Medication Total Dosage/Unit 1% XYLOCAINE 40 mL Medications (Bolus/Oral) Medication Time Given Dosage/Unit Administered By Reason 1% XYLOCAINE 08/05/2017 7:47:00 AM 20 mL Nishant Ham 20 mL 1% XYLOCAINE given in lab by Nishant Ham in Left Groin via Subcutaneous. 1% XYLOCAINE 08/05/2017 7:53:15 AM 20 mL Nishant Ham 20 mL 1% XYLOCAINE given in lab by Nishant Ham in Right Groin via Subcutaneous. Medication (Drip) Medication Time Given Dosage/Unit Concentration/Unit Diluent (ml) Solution ISUPREL 08/05/2017 8:04:42 AM 10 mcg/min 1 mg 250 NaCl .9 10 mcg/min ISUPREL given in lab by Nishant Ham via Peripheral IV. Pump/Drip Flow = 150 ml/hr using NaCl .9 with a concentration of 1 mg in 250 ml. Initial Case Assessment Cardiovascular HR Rhythm NIBP Chest Pain 83 sr 146/72 0 Edema Present Skin color Skin None Normal Warm Dry Circulatory - Right Pulses Dorsalis Pedis 2 Scale (0,1,2,3,4,d) Circulatory - Left Pulses Dorsalis Pedis 2 Scale (0,1,2,3,4,d) Neurological State Oriented to time-place- Alert Moves all extremities person Respiration - General Respiration Rate SpO2 (%) O2 (lpm) (B/min) 18 100 4 08/05/2017 8:33:12 AM Financial #: [id number] Patient Name: BINDU FU Study #: [id number] Initial MD: Nishant Ham Date of : 1990 Study Date: 08/05/2017 Final Case Assessment Cardiovascular HR Rhythm NIBP Chest Pain 94 SR 90/50 0 Edema Present Skin color Skin None Normal Warm Dry Circulatory - Right Pulses Dorsalis Pedis 2 Scale (0,1,2,3,4,d) Circulatory - Left Pulses Dorsalis Pedis 2 Scale (0,1,2,3,4,d) Neurological State Oriented to time-place- Alert Moves all extremities person Respiration - General Respiration Rate SpO2 (%) (B/min) 18 100 Chronological Log Time Study Chronological Log 7:00:27 Patient arrived via Bed. 7:06:32 Patient Name, D.O.B, / Armband Verified By R.N. 7:06:32 Consent signed by the physician and the patient and verified by the Hydroponics Worker staff. 7:06:33 Pre-op and post- op instructions given; patient acknowledges understanding of instructions. 7:26:13 Verbal Stimulation=2 Physical Stimulation=2 Airway=2 Respiration=2 TOTAL=8. (0=absent, 1=li mited, 2=present) 7:32:42 Reference ECG taken 7:33:06 Anesthesia at bedside. Assumes care of patient. see records for meds and vitals during proc edure 7:34:38 Patient has been NPO for More than 6Hrs. 7:34:39 Skin Breakdown- none per patient 7:34:47 Patient Warmer Placed on the Table. 7:34:48 Disposable Defibrillator Pads Placed On Patient. 7:34:49 Son Prominences Protected 08/05/2017 8:33:12 AM Financial #: [id number] Patient Name: BINDU FU Study #: [id number] Initial MD: Nishant Ham Date of : 1990 Study Date: 08/05/2017 7:34:52 A # 18 IV was noted in the Antecubital (right). Grade = 0 7:35:00 A # 20 IV was noted in the Antecubital (left). Grade = 0 7:35:16 History and physical on the chart or being dictated. Assessment: Initial Case, HR=83 BPM, Rhythm=sr, SIUF=107/72 mmhg, Chest Pain=0, Edema=None, Col or=Normal, Skin = Warm, Dry Right Pulses: Destin Ped=2 7:35:17 Left Pulses: Destin Ped=2 Neurological: State=Alert, Ox3, PALM Respiration: Resp=18 B/min, WsE3=611 %, O2=4 lpm Time Out. Correct patient, procedure, procedure equipment, site and side verified with physicia n present. Time 7:43:17 concurred by MD, individual staff and ENVIRONMENTAL WEB CRAWLER. Time Out #2 - Consents verified, patient in correct position, all results are labled and displa yed, safety precautions 7:43:19 taken, antibiotics administered. Time out concurred by MD, individual staff and ENVIRONMENTAL WEB CRAWLER in procedu re 7:44:24 Case Start 7:47:00 20 mL 1% XYLOCAINE given in lab by Nishant Ham in Left Groin via Subcutaneous. 7:49:37 Vascular access was obtained in the Fem Vein (left). 7:49:44 Vascular access was obtained in the Fem Vein (left). 7:49:44 Vascular access was obtained in the Fem Vein (left). 7:49:48 A SHEATH, EPS, FR5 FAST CATH FR 5 was advanced into the Fem Vein (left) using the Modified Seldinger technique. 7:50:19 A SHEATH, EPS, FR5 FAST CATH FR 5 was advanced into the Fem Vein (left) using the Modified Seldinger technique. 7:50:22 A SHEATH, EPS, FR5 FAST CATH FR 5 was advanced into the Fem Vein (left) using the Modified Seldinger technique. 7:53:15 20 mL 1% XYLOCAINE given in lab by Nishant Ham in Right Groin via Subcutaneous. 7:53:21 Vascular access was obtained in the Fem Vein (right). 7:53:22 Vascular access was obtained in the Fem Vein (right). 7:53:23 A SHEATH, EPS, FR6 FAST CATH FR 6 was advanced into the Fem Vein (right) using the Modified Seldinger technique. 7:53:30 A SHEATH, EPS, FR8 FAST CATH FR 8 was advanced into the Fem Vein (right) using the Modified Seldinger technique. A CATHETER, JSN, QUAD FR 5 was advanced vis Fem Vein (right) and placed in the CS. Placement wa s visually 7:54:35 confirmed under fluoroscopy. A CATHETER, JSN, QUAD FR 5 was advanced vis Fem Vein (left) and placed in the HIS. Placement wa s visually 7:56:07 confirmed under fluoroscopy. A CATHETER, JSN, QUAD FR 5 was advanced vis Fem Vein (left) and placed in the HRA. Placement wa s visually 7:56:17 confirmed under fluoroscopy. A CATHETER, JSN, QUAD FR 5 was advanced vis Fem Vein (left) and placed in the RVA. Placement wa s visually 7:56:43 confirmed under fluoroscopy. 7:57:31 EP study in progress 10 mcg/min ISUPREL given in lab by Nishant Ham via Peripheral IV. Pump/Drip Flow = 150 ml/hr using NaCl .9 with a 8:04:42 concentration of 1 mg in 250 ml. 8:17:44 DC ISUPREL 8:24:18 EP STUDY COMPLETE UNABLE TO INDUCE 8:24:39 Catheter(s) removed without difficulty 8:24:41 Sheath removed; pressure applied to access site. Assessment: Final Case, HR=94 BPM, Rhythm=SR, NIBP=90/50 mmhg, Chest Pain=0, Edema=None, Color= Normal, Skin = Warm, Dry Right Pulses: Destin Ped=2 8:24:43 Left Pulses: Destin Ped=2 Neurological: State=Alert, Ox3, PALM Respiration: Resp=18 B/min, CjF5=827 % 08/05/2017 8:33:12 AM Financial #: [id number] 6 of 7 Patient Name: BINDU FU Study #: [id number] Initial MD: Nishant Ham Date of : 1990 Study Date: 08/05/2017 8:26:08 Case End 8:30:32 Sterile dressing applied to site 8:30:33 No case complications noted. 8:30:34 Cine recording checked. 8:30:35 Bedside Report will be given. 8:30:37 CIC called. Spoke to ROYCE 8:32:22 Defibrillator and ground pads removed. Skin intact. 8:32:23 Verbal Stimulation=2 Physical Stimulation=2 Airway=2 Respiration=2 TOTAL=8. (0=absent, 1=l imited, 2=present) End Study - Contrast Media Used In Study Contrast Total Opened (mL) Total Used (mL) Total Wasted (mL) Omnipaque 0 0 0 End Study - Radiation Exposure Fluoro Time (minutes) 1.1 End Study - Patient Disposition Complications Transferred To Interventional Outcome No Telemetry Bed successful 08/05/2017 8:33:12 AM Financial #: [id number] 7 of 7
[2017-08-05] MEDS ORDERED: DO NOT ADM ANY ANTICOAGULANT DRUGS PRN (08:45)
[2017-08-05] MEDS ORDERED: MIDAZOLAM HCL 2 MG/2 ML VIAL ONE (08:46)
[2017-08-05] MEDS ORDERED: PROPOFOL 500 MG/50 ML INJ 50 ML ONE (08:48)
[2017-08-05] MEDS: SODIUM CHLORIDE 0.9% FLUSH 10 ML FLUSH IV FLUSH SCH ×2 (09:00→21:00)
[2017-08-05] MEDS: DOCUSATE SODIUM 50 MG/SENNA 8.6 MG TAB PO SCH ×2 (09:00→21:45)
--- NOTE | 2017-08-05 11:18 | HHI.PR ---
Subjective Remarks Patient is sleepy seen after the EP study. Says no cp, palpitations, sob or lightheaded. Feels tired and sleepy. No fever or chills. No cough. No n/v/d/c. Objective Vitals Vital Signs Date Time Temp Pulse Resp B/P (MAP) Pulse Ox O2 Delivery O2 Flow Rate FiO2 08/05/17 10:00 98.1 70 14 111/62 (78) 100 08/05/17 09:30 98.0 70 18 114/58 (76) 100 08/05/17 09:15 98.0 68 18 115/66 (82) 100 08/05/17 09:00 67 08/05/17 09:00 98.0 67 18 115/67 (83) 100 08/05/17 09:00 63 08/05/17 08:45 97.7 67 18 112/71 (85) 100 08/05/17 06:00 98 08/05/17 05:00 100 08/05/17 04:46 Nasal Cannula 2.00 08/05/17 04:00 98.4 84 20 130/75 (93) 100 08/05/17 04:00 94 08/05/17 04:00 Room Air 08/05/17 03:00 88 08/05/17 02:00 80 08/05/17 01:00 80 08/05/17 00:00 Room Air 08/05/17 00:00 98.2 78 20 107/63 (78) 100 08/05/17 00:00 105 08/04/17 23:00 78 08/04/17 22:00 66 08/04/17 21:00 72 08/04/17 20:00 99.1 69 20 120/67 (84) 100 08/04/17 20:00 Room Air 08/04/17 20:00 92 08/04/17 19:00 78 08/04/17 18:57 75 126/75 (92) 08/04/17 15:47 98.3 70 18 124/76 (92) 100 08/04/17 12:53 98.9 80 18 126/69 (88) 100 I/O 08/04/17 08/04/17 08/04/17 08/05/17 08/05/17 08/05/17 07:00 15:00 23:00 07:00 15:00 23:00 Intake Total 0 ml 360 ml 240 ml Balance 0 ml 360 ml 240 ml Intake Oral 0 ml 360 ml 240 ml # Voids 1 1 3 # Bowel Movements 1 0 Result Diagram: 08/03/17 1230 08/03/17 1230 Imaging Last Impressions Chest X-Ray 08/02/172120 Signed Impressions: Service Date/Time: Wednesday, August 02, 2017 21:52 - CONCLUSION: No evidence of acute cardiopulmonary disease. Mikel Pereira MD Objective Remarks GENERAL: Alert, oriented 3, NAD. CARDIOVASCULAR: Regular rate and rhythm without murmurs, gallops, or rubs. RESPIRATORY: Breath sounds equal bilaterally. No accessory muscle use. GASTROINTESTINAL: Abdomen soft, non-tender, nondistended. MUSCULOSKELETAL: No cyanosis, or edema. BACK: Nontender without obvious deformity. No CVA tenderness. Procedures None A/P Problem List: (1) SVT (supraventricular tachycardia) ICD Code: I47.1 - Supraventricular tachycardia (2) Chest pain ICD Code: R07.9 - Chest pain, unspecified (3) Hypokalemia ICD Code: E87.6 - Hypokalemia Assessment and Plan This is a 27-year-old female with a PMH of SVT who was brought to the ER by EMS secondary to complaints of palpitations and chest pain. Per patient she's had intermittent palpitations for approx 2wks, follows w/ Dr. Heart, seen in office and started on Digoxin. States Metoprolol discontinued however remains on Flecainide. Reports compliance w/ medications. - Supraventricular tachycardia - EP input appreciated. - Continue digoxin 0.125 mg by mouth daily and flecainide 75 mg by mouth twice a day. - S/p EP study and intervention today 08/05/[address] Ham - Chest pain - troponins 0.02, 0.03 and 0.02. - Mild hypokalemia - potassium 3.4 improved to 3.7. Magnesium 2.1. Full code. SCDs. Discussed with the patient, nurse DC when cleared by cardio Dr Jitendra morgan later today or tomorrow. Nissa Whitaker MD Aug 05, 2017 11:18
[2017-08-05] MEDS ORDERED: SODIUM CHLOR 0.9% 250 ML INJ 250 ML IV ONE (12:00)
[2017-08-05] MEDS ORDERED: ROCURONIUM INJ 50 MG/5 ML SYRINGE IV PUSH ONE (12:00)
[2017-08-05] MEDS ORDERED: PROPOFOL 200 MG/20 ML AMP IV ONE (12:00)
--- NOTE | 2017-08-05 14:19 | HHI.DS ---
Discharge Summary Admission Date Aug 02, 2017 at 23:42 Discharge Date: Aug 07, 2017 Admitting Diagnosis chest pains/SVT (1) SVT (supraventricular tachycardia) ICD Code: I47.1 - Supraventricular tachycardia (2) Chest pain ICD Code: R07.9 - Chest pain, unspecified (3) Hypokalemia ICD Code: E87.6 - Hypokalemia Procedures ep study /ablation Brief History - From Admission This is a 27-year-old female with a PMH of SVT who was brought to the ER by EMS secondary to complaints of palpitations and chest pain. Per patient she's had intermittent palpitations for approx 2wks, follows w/ Dr. Heart, seen in office and started on Digoxin. States Metoprolol discontinued however remains on Flecainide. Reports compliance w/ medications. Today w/ persistent c/o palpitations and chest tightness, unrelieved by medications. Reports chest pain is substernal, 6/10, non-radiating, associated w/ palpitations. Per EMS, HR 170's, s/p IVF w/ improvement. On arrival, BP 130/74, HR 106, O2 sat 100% on 2L NC, Afebrile. CBC essentially unremarkable. Chemistry unremarkable except for K+ 3.4. Mg normal. Trop negative. INR 1.1. Digoxin 0.4. CXR with no acute findings. CBC/BMP: 08/03/17 1230 08/03/17 1230 Significant Findings Laboratory Tests Test 08/02/17 21:20 08/03/17 02:20 08/03/17 12:30 08/05/17 07:08 Red Blood Count 3.84 MIL/MM3 (4.00-5.30) Hematocrit 34.8 % (35.0-46.0) Monocytes (%) (Auto) 10.3 % (0.0-8.0) 10.2 % (0.0-8.0) Potassium Level 3.4 MEQ/L (3.5-5.1) Anion Gap 4 MEQ/L (5-15) Estimat Glomerular Filtration Rate 86 ML/MIN (>89) Troponin I LESS THAN 0.02 NG/ML LESS THAN 0.02 NG/ML Digoxin Level 0.4 NG/ML (0.8-2.0) Random Glucose 65 MG/DL (74-106) Aspartate Amino Transf (AST/SGOT) 14 U/L (15-37) Total Bilirubin 1.4 MG/DL (0.2-1.0) Imaging Last Impressions Chest X-Ray 08/02/172120 Signed Impressions: Service Date/Time: Wednesday, August 02, 2017 21:52 - CONCLUSION: No evidence of acute cardiopulmonary disease. Mikel Pereira MD PE at Discharge GENERAL: Alert, oriented 3, NAD. CARDIOVASCULAR: Regular rate and rhythm without murmurs, gallops, or rubs. RESPIRATORY: Breath sounds equal bilaterally. No accessory muscle use. GASTROINTESTINAL: Abdomen soft, non-tender, nondistended. MUSCULOSKELETAL: No cyanosis, or edema. BACK: Nontender without obvious deformity. No CVA tenderness. Hospital Course This is a 27-year-old female with a PMH of SVT who was brought to the ER by EMS secondary to complaints of palpitations and chest pain. Per patient she's had intermittent palpitations for approx 2wks, follows w/ Dr. Heart, seen in office and started on Digoxin. States Metoprolol discontinued however remains on Flecainide. Reports compliance w/ medications. With Supraventricular tachycardia.Ep Dr Ham consulted. Continue digoxin 0.125 mg by mouth daily and flecainide 75 mg by mouth twice a day. S/p EP study and intervention 08/05/[address] Ham still symptomatic Chest pain - troponins 0.02, 0.03 and 0.02. Mild hypokalemia - Replaced, monitor Magnesium 2.1. Improved, DC home in stable condition to follow up as OP with PCP and consultants Pt Condition on Discharge: Stable Discharge Disposition: Discharge Home Discharge Time: > 30 minutes Discharge Instructions DIET: Follow Instructions for: Heart Healthy Diet Activities you can perform: Regular-No Restrictions Follow up Referrals: Cardiology - 3 Weeks PCP Follow-up - 2-3 Days Continued Medications: Digoxin (Digoxin) 0.125 Mg Tab 0.125 MG PO DAILY for Regulate Heart Beat, #30 TAB 0 Refills Flecainide (Flecainide) 50 Mg Tab 75 MG PO BID for Regulate Heart Beat, #60 TAB 0 Refills Metoprolol Tartrate (Metoprolol Tartrate) 25 Mg Tab 25 MG PO BID for Regulate Heart Beat, #60 TAB 0 Refills Naproxen (Naproxen) 250 Mg Tab 250 MG PO BID PRN for PAIN SCALE 1 TO 10, #20 TAB 0 Refills Nissa Whitaker MD Aug 05, 2017 14:19
[2017-08-06] VITALS (11 sets, daily range): BP systolic 106–132; BP diastolic 55–70; PULSE 56–84; RESP 18; TEMP 97.5–98.3; O2SAT 96–100
[2017-08-06] MEDS: SODIUM CHLOR 0.9% 1000 ML INJ 1,000 ML IV SCH ×2 (07:39→17:39)
[2017-08-06] MEDS: DOCUSATE SODIUM 50 MG/SENNA 8.6 MG TAB PO SCH (09:00)
[2017-08-06] MEDS: SODIUM CHLORIDE 0.9% FLUSH 10 ML FLUSH IV FLUSH SCH (09:00)
--- NOTE | 2017-08-06 14:50 | HHI.PR ---
Subjective Remarks In bed says she is still with nausea and dizziness. Has chest pain at times. No fever or chills. Objective Vitals Vital Signs Date Time Temp Pulse Resp B/P (MAP) Pulse Ox O2 Delivery O2 Flow Rate FiO2 08/06/17 11:57 98.3 78 18 132/70 (90) 98 08/06/17 09:56 21 08/06/17 07:45 97.6 84 18 113/63 (80) 98 08/06/17 07:15 Room Air 21 08/06/17 06:00 58 08/06/17 05:00 56 08/06/17 04:00 97.8 65 18 109/55 (73) 100 08/06/17 03:45 57 08/06/17 03:00 60 08/06/17 02:00 58 08/06/17 01:00 62 08/06/17 00:00 60 08/06/17 00:00 97.7 79 18 106/57 (73) 100 08/05/17 23:00 66 08/05/17 22:00 68 08/05/17 21:00 72 08/05/17 20:51 100 21 08/05/17 20:00 87 08/05/17 20:00 Room Air 08/05/17 20:00 98.8 78 20 128/73 (91) 100 08/05/17 19:00 68 08/05/17 18:00 72 08/05/17 16:00 98.6 82 16 115/63 (80) 100 08/05/17 16:00 79 08/05/17 15:30 77 16 98/60 (73) 100 08/05/17 15:00 72 I/O 08/05/17 08/05/17 08/05/17 08/06/17 08/06/17 08/06/17 07:00 15:00 23:00 07:00 15:00 23:00 Intake Total 240 ml 360 ml 240 ml 0 ml Balance 240 ml 360 ml 240 ml 0 ml Intake Oral 240 ml 360 ml 240 ml 0 ml # Voids 3 5 1 # Bowel Movements 0 Result Diagram: 08/03/17 1230 08/03/17 1230 Imaging Last Impressions Chest X-Ray 08/02/172120 Signed Impressions: Service Date/Time: Wednesday, August 02, 2017 21:52 - CONCLUSION: No evidence of acute cardiopulmonary disease. Mikel Pereira MD Objective Remarks GENERAL: Alert, oriented 3, NAD. CARDIOVASCULAR: Regular rate and rhythm without murmurs, gallops, or rubs. RESPIRATORY: Breath sounds equal bilaterally. No accessory muscle use. GASTROINTESTINAL: Abdomen soft, non-tender, nondistended. MUSCULOSKELETAL: No cyanosis, or edema. BACK: Nontender without obvious deformity. No CVA tenderness. Procedures None A/P Problem List: (1) SVT (supraventricular tachycardia) ICD Code: I47.1 - Supraventricular tachycardia (2) Chest pain ICD Code: R07.9 - Chest pain, unspecified (3) Hypokalemia ICD Code: E87.6 - Hypokalemia Assessment and Plan This is a 27-year-old female with a PMH of SVT who was brought to the ER by EMS secondary to complaints of palpitations and chest pain. Per patient she's had intermittent palpitations for approx 2wks, follows w/ Dr. Heart, seen in office and started on Digoxin. States Metoprolol discontinued however remains on Flecainide. Reports compliance w/ medications. - Supraventricular tachycardia - EP input appreciated. - Continue digoxin 0.125 mg by mouth daily and flecainide 75 mg by mouth twice a day. - S/p EP study and intervention 08/05/[address] Ham - still symptomatic - Chest pain - troponins 0.02, 0.03 and 0.02. - Mild hypokalemia - Replaced, monitor Magnesium 2.1. Full code. SCDs. Discussed with the patient, nurse DC when cleared by cardio Nissa Alonso MD Aug 06, 2017 14:50
== END 2017-08-06 22:49 | disposition home or self-care (01) ==
LOC: NEPE 21:10 → NEDA 23:42 → NEPGCP 08-03 00:21 → HCIS 08-04 09:53
PROVIDERS: ADMIT Hospitalist; ATTEND Hospitalist
DX: I47.1 Supraventricular tachycardia (principal); R07.89 Other chest pain; L03.115 Cellulitis of right lower limb; E87.6 Hypokalemia; R42 Dizziness and giddiness; R11.0 Nausea; I95.9 Hypotension, unspecified
CPT/HCPCS: 00537; 71045; 80048; 80053; 80162; 82550; 82552; 83735; 84484; 84702; 84703; 85025; 85610; 85730; 93005; 93613; 93620; 93623; 96360; 96361; 99285; C1730; C1732; G0378; J2250; J3010; J7030; J7040; J7050

== ENCOUNTER 2017-08-24 23:12 | Emergency (ER) | payer MEDICAID ==
[~2017-08-24] VITALS: Ht 172.7 cm; Wt 63.5 kg
[~2017-08-24 23:12] MED LIST changes: +DIGO0.12 PO
[2017-08-24 23:13] VITALS: BP 117/66; PULSE 70; RESP 16; TEMP 98.5; O2SAT 100
[2017-08-24] MEDS ORDERED: SODIUM CHLORID 0.9% 500 ML INJ 500 ML IV ONE (23:30)
[2017-08-24] MEDS ORDERED: ASPIRIN 81 MG CHEW TAB PO ONE (23:30)
[2017-08-24] MEDS ORDERED: SODIUM CHLORIDE 0.9% FLUSH 10 ML FLUSH IVF PRN (23:30)
[2017-08-24 23:50] LABS: AUTOMATED NEUTROPHIL # 3.7 TH/MM3 (1.8-7.7); BASOPHIL # 0.1 TH/MM3 (0-0.2); EOSINOPHIL # 0.2 TH/MM3 (0-0.4); EOSINOPHIL % 2.4 % (0.0-4.0); HEMATOCRIT 34.6 % (35.0-46.0); LYMPH % 32.4 % (9.0-44.0); LYMPHOCYTE # 2.4 TH/MM3 (1.0-4.8); MEAN CELL VOLUME 91.8 FL (80.0-100.0); MEAN CORPUSCULAR HEMOGLOBIN 31.7 PG (27.0-34.0); MEAN CORPUSCULAR HGB CONC 34.6 % (32.0-36.0); MEAN PLATELET VOLUME 7.6 FL (7.0-11.0); MONO % 13.6 % (0.0-8.0); NEUT % 50.6 % (16.0-70.0); PLATELET COUNT 279 TH/MM3 (150-450); RED BLOOD COUNT 3.77 MIL/MM3 (4.00-5.30); WHITE BLOOD COUNT 7.3 TH/MM3 (4.0-11.0)
--- NOTE | 2017-08-24 23:52 | PD ---
HPI Chief Complaint: Chest Pain Time Seen by Provider: 23:24 Travel History International Travel<30 days: No Contact w/Intl Traveler<30days: No Traveled to known affect area: No History of Present Illness HPI The patient is a 27-year-old female who presents to the emergency department for palpitations. The patient has a history of SVT and is followed by the reed or wind instrument repairer, Dr. Ham. The patient had a previous electrophysiology study, however, there is no ablation performed. The patient was recently taken off of flecainide and digoxin, however, still taking metoprolol 25 mg twice a day. The patient states she had an elevated heart rate earlier tonight of approximately 115, now notes her heart rate has normalized. She did have mild chest pain, chest pressure, shortness of breath, and lightheadedness with her palpitations. Symptoms are mild to moderate, have been ongoing for several months, and she is currently undergoing a workup and treatment by her reed or wind instrument repairer. PFSH Past Medical History Asthma: No Blood Disorders: No Heart Rhythm Problems: Yes (SVT) Cancer: No Cardiovascular Problems: Yes (SVT) High Cholesterol: No Chemotherapy: No Chest Pain: No Congestive Heart Failure: No COPD: No Diabetes: No Diminished Hearing: No Endocrine: No Gastrointestinal Disorders: No Genitourinary: No Immune Disorder: No Implanted Vascular Access Dvce: No Musculoskeletal: No Neurologic: No Psychiatric: No Reproductive: No Respiratory: No Integumentary: Yes (cellulitis R outer leg ) Immunizations Current: Yes Radiation Therapy: No Sleep Apnea: No Thyroid Disease: No Tetanus Vaccination: < 5 Years Influenza Vaccination: No ?: Not LMP: 08/06/17 : 1 Para: 1 Past Surgical History Surgical History: No Previous Surgery Other Surgery: No Social History Alcohol Use: No Tobacco Use: No Substance Use: No Allergies-Medications (Allergen,Severity, Reaction): Coded Allergies: No Known Allergies (Unverified Allergy, Unknown, 08/24/17) Reported Meds & Prescriptions Reported Meds & Active Scripts Active Metoprolol Tartrate 25 Mg Tab 25 Mg PO BID Review of Systems Except as stated in HPI: all other systems reviewed are Neg General / Constitutional: No: Fever HENT: Positive: Lightheadedness, No: Headaches Cardiovascular: Positive: Chest Pain or Discomfort, Palpitations, Tachycardia, No: Diaphoresis Respiratory: Positive: Shortness of Breath Gastrointestinal: No: Nausea, Vomiting Neurologic: Positive: Dizziness Physical Exam Narrative GENERAL: Awake, alert, pleasant 27-year-old female who appears her stated age and is in no acute respiratory distress. SKIN: Focused skin assessment warm/dry. HEAD: Atraumatic. Normocephalic. EYES: No injection or drainage. ENT: No nasal bleeding or discharge. Mucous membranes pink and moist. NECK: Trachea midline. No JVD. CARDIOVASCULAR: Regular rate and rhythm. No murmur appreciated. Heart rate in the 60s. RESPIRATORY: No accessory muscle use. Clear to auscultation. Breath sounds equal bilaterally. MUSCULOSKELETAL: No obvious deformities. No clubbing. No cyanosis. No edema. NEUROLOGICAL: Awake and alert. No obvious cranial nerve deficits. Motor grossly within normal limits. Normal speech. PSYCHIATRIC: Appropriate mood and affect; insight and judgment normal. Data Data Last Documented VS Vital Signs Date Time Temp Pulse Resp B/P (MAP) Pulse Ox O2 Delivery O2 Flow Rate FiO2 08/24/17 23:23 Room Air 08/24/17 23:13 98.5 70 16 117/66 (83) 100 Orders Orders Electrocardiogram (08/24/17 23:24) Ckmb (Isoenzyme) Profile (08/24/17 23:24) Complete Blood Count With Diff (08/24/17 23:24) Comprehensive Metabolic Panel (08/24/17 23:24) Magnesium (Mg) (08/24/17 23:24) Troponin I (08/24/17 23:24) Ecg Monitoring (08/24/17 23:24) Bilateral Bp Monitoring (08/24/17 23:24) Iv Access Insert/Monitor (08/24/17 23:24) Oximetry (08/24/17 23:24) Oxygen Administration (08/24/17 23:24) Aspirin Chew (Aspirin Chew) (08/24/17 23:30) Sodium Chloride 0.9% Flush (Ns Flush) (08/24/17 23:30) Sodium Chlorid 0.9% 500 Ml Inj (Ns 500 M (08/24/17 23:30) CKMB (08/24/17 23:40) CKMB% (08/24/17 23:40) Labs Laboratory Tests Test 08/24/17 23:40 White Blood Count 7.3 TH/MM3 Red Blood Count 3.77 MIL/MM3 Hemoglobin 12.0 GM/DL Hematocrit 34.6 % Mean Corpuscular Volume 91.8 FL Mean Corpuscular Hemoglobin 31.7 PG Mean Corpuscular Hemoglobin Concent 34.6 % Red Cell Distribution Width 13.0 % Platelet Count 279 TH/MM3 Mean Platelet Volume 7.6 FL Neutrophils (%) (Auto) 50.6 % Lymphocytes (%) (Auto) 32.4 % Monocytes (%) (Auto) 13.6 % Eosinophils (%) (Auto) 2.4 % Basophils (%) (Auto) 1.0 % Neutrophils # (Auto) 3.7 TH/MM3 Lymphocytes # (Auto) 2.4 TH/MM3 Monocytes # (Auto) 1.0 TH/MM3 Eosinophils # (Auto) 0.2 TH/MM3 Basophils # (Auto) 0.1 TH/MM3 CBC Comment DIFF FINAL Differential Comment Blood Urea Nitrogen 12 MG/DL Creatinine 0.80 MG/DL Random Glucose 84 MG/DL Total Protein 7.0 GM/DL Albumin 3.8 GM/DL Calcium Level 8.6 MG/DL Magnesium Level 2.0 MG/DL Alkaline Phosphatase 82 U/L Aspartate Amino Transf (AST/SGOT) 14 U/L Alanine Aminotransferase (ALT/SGPT) 12 U/L Total Bilirubin 0.8 MG/DL Sodium Level 140 MEQ/L Potassium Level 3.6 MEQ/L Chloride Level 106 MEQ/L Carbon Dioxide Level 28.7 MEQ/L Anion Gap 5 MEQ/L Estimat Glomerular Filtration Rate 103 ML/MIN Total Creatine Kinase 110 U/L Creatine Kinase MB 0.6 NG/ML Troponin I LESS THAN 0.02 NG/ML MDM Medical Decision Making Medical Screen Exam Complete: Yes Emergency Medical Condition: Yes Medical Record Reviewed: Yes Interpretation(s) EKG reveals sinus rhythm with short ID interval. No ischemic changes noted. Laboratory Tests Test 08/24/17 23:40 White Blood Count 7.3 TH/MM3 Red Blood Count 3.77 MIL/MM3 Hemoglobin 12.0 GM/DL Hematocrit 34.6 % Mean Corpuscular Volume 91.8 FL Mean Corpuscular Hemoglobin 31.7 PG Mean Corpuscular Hemoglobin Concent 34.6 % Red Cell Distribution Width 13.0 % Platelet Count 279 TH/MM3 Mean Platelet Volume 7.6 FL Neutrophils (%) (Auto) 50.6 % Lymphocytes (%) (Auto) 32.4 % Monocytes (%) (Auto) 13.6 % Eosinophils (%) (Auto) 2.4 % Basophils (%) (Auto) 1.0 % Neutrophils # (Auto) 3.7 TH/MM3 Lymphocytes # (Auto) 2.4 TH/MM3 Monocytes # (Auto) 1.0 TH/MM3 Eosinophils # (Auto) 0.2 TH/MM3 Basophils # (Auto) 0.1 TH/MM3 CBC Comment DIFF FINAL Differential Comment Blood Urea Nitrogen 12 MG/DL Creatinine 0.80 MG/DL Random Glucose 84 MG/DL Total Protein 7.0 GM/DL Albumin 3.8 GM/DL Calcium Level 8.6 MG/DL Magnesium Level 2.0 MG/DL Alkaline Phosphatase 82 U/L Aspartate Amino Transf (AST/SGOT) 14 U/L Alanine Aminotransferase (ALT/SGPT) 12 U/L Total Bilirubin 0.8 MG/DL Sodium Level 140 MEQ/L Potassium Level 3.6 MEQ/L Chloride Level 106 MEQ/L Carbon Dioxide Level 28.7 MEQ/L Anion Gap 5 MEQ/L Estimat Glomerular Filtration Rate 103 ML/MIN Total Creatine Kinase 110 U/L Creatine Kinase MB 0.6 NG/ML Troponin I LESS THAN 0.02 NG/ML Differential Diagnosis Differential diagnosis includes WPW, LGL, SVT, hyperthyroidism, pulmonary embolism, heart palpitations. Narrative Course IV was established, labs were drawn and sent, and the patient was placed on cardiac telemetry monitoring and continuous pulse oximetry monitoring. EKG was ordered and interpreted. Electrolytes and magnesium level were sent to lab. The patient was monitored on telemetry monitoring. Electrolytes are unremarkable. Troponin is negative. The patient was monitored on telemetry monitoring, there is no evidence of arrhythmia. The patient does have a history of SVT, is advised to follow-up with her reed or wind instrument repairer. Continue metoprolol as previously directed. Return if symptoms worsen or progress. Diagnosis Primary Impression: Heart palpitations Patient Instructions: General Instructions Additional Instructions: Please provide the patient a copy of her labs at discharge. Follow-up with your reed or wind instrument repairer. Return if symptoms worsen or progress. Med/Other Pt SpecificInfo: No Change to Meds Disposition: 01 DISCHARGE HOME Condition: Stable Tristan Valera MD Aug 24, 2017 23:52
[2017-08-25 00:05] LABS: ALBUMIN 3.8 GM/DL (3.4-5.0); ALT (GPT) 12 U/L (10-53); AST (GOT) 14 U/L (15-37); BICARBONATE 28.7 MEQ/L (21.0-32.0); BLOOD UREA NITROGEN 12 MG/DL (7-18); CALCIUM 8.6 MG/DL (8.5-10.1); CHLORIDE 106 MEQ/L (98-107); GLOMERULAR FILTRATION RATE 103 ML/MIN (>89); GLUCOSE,RANDOM 84 MG/DL (74-106); SODIUM (NA) 140 MEQ/L (136-145); TOTAL BILIRUBIN ADULT 0.8 MG/DL (0.2-1.0)
[2017-08-25 00:08] LABS: ALKALINE PHOSPHATASE 82 U/L (45-117); TROPONIN I LESS THAN 0.02 NG/ML (0.02-0.05)
--- NOTE | 2017-08-25 18:53 | EKG ---
Date Performed: 08/24/2017 Time Performed: 23:44:55 PTAGE: 27 years EKG: Sinus rhythm WITH SHORT DC INTERVAL BORDERLINE ECG Since the prior tracing, there has been no significant change PREVIOUS TRACING : 08/02/2017 21.25 DOCTOR: Alyssa Leonard Interpretating Date/Time 08/25/2017 18:48:05
== END 2017-08-25 02:19 | disposition home or self-care (01) ==
LOC: NEPC 23:12
DX: R00.2 Palpitations (principal); R94.31 Abnormal electrocardiogram [ECG] [EKG]; I47.1 Supraventricular tachycardia
CPT/HCPCS: 80053; 82550; 82552; 83735; 84484; 85025; 93005; 96360; 99284; J7040

== ENCOUNTER → 2017-09-02 | Outpatient (CLI) | payer MEDICAID ==
[~2017-09-02] MED LIST changes: -DIGO0.12 PO; -FLEC1TAB8 PO; -NAPR250T4 PO
== END ==
LOC: HRAD 16:02
PROVIDERS: ATTEND Internal Medicine Interventional Cardiology
DX: I47.1 Supraventricular tachycardia (principal)
CPT/HCPCS: 93270

== ENCOUNTER 2017-09-30 23:24 | Emergency (ER) | payer MEDICAID ==
[~2017-09-30] VITALS: Ht 172.7 cm; Wt 64.0 kg
[2017-10-01 01:07] VITALS: BP 131/71; PULSE 62; RESP 18; TEMP 97.7; O2SAT 100
[2017-10-01 04:31] VITALS: BP 114/77; PULSE 62; RESP 16; TEMP 98.1; O2SAT 100
--- NOTE | 2017-10-01 04:50 | PD ---
HPI Chief Complaint: Edema Time Seen by Provider: 04:34 Travel History International Travel<30 days: No Contact w/Intl Traveler<30days: No Traveled to known affect area: No History of Present Illness HPI pt has leg cramps and aching for last few days and palpitations and feels it most at work after standing up for hours. pt has no new shoes no hours no new medication , she is on metoprolol , BID and has a halter monitor on for last 30 days and has a hospital nurse liaison following her heart issues ,, She was on flecinide and digoxin but no longer . Her complaint is palpitation s with bilateral leg cramping intermittent , pt is already well worked up for her palpaitation and cardiac complaint .. 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 PFSH Past Medical History Asthma: No Blood Disorders: No Heart Rhythm Problems: Yes (SVT) Cancer: No Cardiovascular Problems: Yes (SVT) High Cholesterol: No Chemotherapy: No Chest Pain: No Congestive Heart Failure: No COPD: No Diabetes: No Diminished Hearing: No Endocrine: No Gastrointestinal Disorders: No Genitourinary: No Immune Disorder: No Implanted Vascular Access Dvce: No Musculoskeletal: No Neurologic: No Psychiatric: No Reproductive: No Respiratory: No Integumentary: Yes (cellulitis R outer leg ) Immunizations Current: Yes Radiation Therapy: No Sleep Apnea: No Thyroid Disease: No ?: Not LMP: 09/25/17 : 1 Para: 1 Past Surgical History Other Surgery: No Social History Alcohol Use: No Tobacco Use: No Substance Use: No Allergies-Medications (Allergen,Severity, Reaction): Coded Allergies: No Known Allergies (Unverified Allergy, Unknown, 10/01/17) Reported Meds & Prescriptions Reported Meds & Active Scripts Active Metoprolol Tartrate 25 Mg Tab 25 Mg PO BID Review of Systems Except as stated in HPI: all other systems reviewed are Neg Cardiovascular: Positive: Palpitations Physical Exam Narrative GENERAL: Patient has a Holter monitor hanging from her chest with leads attached to her upper chest SKIN: Warm and dry. Patient has multiple acne scars on her chest and upper face HEAD: Atraumatic. Normocephalic. EYES: Pupils equal and round. No scleral icterus. No injection or drainage. ENT: No nasal bleeding or discharge. Mucous membranes pink and moist. NECK: Trachea midline. No JVD. CARDIOVASCULAR: Regular rate and rhythm. RESPIRATORY: No accessory muscle use. Clear to auscultation. Breath sounds equal bilaterally. GASTROINTESTINAL: Abdomen soft, non-tender, nondistended. Hepatic and splenic margins not palpable. MUSCULOSKELETAL: Extremities bilateral lower extremities have no edema there is no cramping the calves. They are nonswollen there is no cords felt.. No signs of swelling. No signs of edema. Calf and lower legs are symmetrically even no pathology seen No obvious deformities. NEUROLOGICAL: Awake and alert. No obvious cranial nerve deficits. Motor grossly within normal limits. Five out of 5 muscle strength in the arms and legs. Normal speech. PSYCHIATRIC: Appropriate mood and affect; insight and judgment normal. Data Data Last Documented VS Vital Signs Date Time Temp Pulse Resp B/P (MAP) Pulse Ox O2 Delivery O2 Flow Rate FiO2 10/01/17 06:27 10/01/17 04:31 98.1 62 16 100 Orders Orders Complete Blood Count With Diff (10/01/17 04:47) Comprehensive Metabolic Panel (10/01/17 04:47) Magnesium (Mg) (10/01/17 04:47) Ed Discharge Order (10/01/17 06:46) Labs Laboratory Tests Test 10/01/17 05:00 White Blood Count 5.8 TH/MM3 Red Blood Count 3.53 MIL/MM3 Hemoglobin 11.0 GM/DL Hematocrit 32.5 % Mean Corpuscular Volume 92.0 FL Mean Corpuscular Hemoglobin 31.2 PG Mean Corpuscular Hemoglobin Concent 33.9 % Red Cell Distribution Width 13.2 % Platelet Count 288 TH/MM3 Mean Platelet Volume 8.1 FL Neutrophils (%) (Auto) 49.5 % Lymphocytes (%) (Auto) 31.9 % Monocytes (%) (Auto) 10.3 % Eosinophils (%) (Auto) 7.2 % Basophils (%) (Auto) 1.1 % Neutrophils # (Auto) 2.9 TH/MM3 Lymphocytes # (Auto) 1.8 TH/MM3 Monocytes # (Auto) 0.6 TH/MM3 Eosinophils # (Auto) 0.4 TH/MM3 Basophils # (Auto) 0.1 TH/MM3 CBC Comment DIFF FINAL Differential Comment Blood Urea Nitrogen 12 MG/DL Creatinine 0.72 MG/DL Random Glucose 80 MG/DL Total Protein 7.1 GM/DL Albumin 3.8 GM/DL Calcium Level 8.8 MG/DL Magnesium Level 2.1 MG/DL Alkaline Phosphatase 101 U/L Aspartate Amino Transf (AST/SGOT) 23 U/L Alanine Aminotransferase (ALT/SGPT) 29 U/L Total Bilirubin 1.1 MG/DL Sodium Level 142 MEQ/L Potassium Level 3.5 MEQ/L Chloride Level 109 MEQ/L Carbon Dioxide Level 25.8 MEQ/L Anion Gap 7 MEQ/L Estimat Glomerular Filtration Rate 116 ML/MIN MDM Medical Decision Making Medical Screen Exam Complete: Yes Emergency Medical Condition: Yes Differential Diagnosis palpitations from SVT of paroxysmal afib , vs anxiety, vs congenital defect ASD or other , vs thyroid issues vs stimulant effects other Narrative Course on monitor no SVT no afib no tachycardia no ectopy of EKG trop negative leg exam no indication for DVT legs smooth calf no swelling no pain with palpation bialterally symmetric d/c follow up with her cards MD Diagnosis Primary Impression: Heart palpitations Patient Instructions: General Instructions, Heart Palpitations (ED) Disposition: 01 DISCHARGE HOME Condition: Good [place] MD Oct 01, 2017 04:49
[2017-10-01 05:20] LABS: AUTOMATED NEUTROPHIL # 2.9 TH/MM3 (1.8-7.7); BASOPHIL # 0.1 TH/MM3 (0-0.2); BASOPHIL % 1.1 % (0.0-2.0); EOSINOPHIL # 0.4 TH/MM3 (0-0.4); EOSINOPHIL % 7.2 % (0.0-4.0); HEMATOCRIT 32.5 % (35.0-46.0); LYMPH % 31.9 % (9.0-44.0); LYMPHOCYTE # 1.8 TH/MM3 (1.0-4.8); MEAN CORPUSCULAR HEMOGLOBIN 31.2 PG (27.0-34.0); MEAN CORPUSCULAR HGB CONC 33.9 % (32.0-36.0); MEAN PLATELET VOLUME 8.1 FL (7.0-11.0); MONO % 10.3 % (0.0-8.0); MONOCYTE # 0.6 TH/MM3 (0-0.9); NEUT % 49.5 % (16.0-70.0); PLATELET COUNT 288 TH/MM3 (150-450); RED BLOOD COUNT 3.53 MIL/MM3 (4.00-5.30); RED CELL DISTRIBUTION WIDTH 13.2 % (11.6-17.2); WHITE BLOOD COUNT 5.8 TH/MM3 (4.0-11.0)
[2017-10-01 05:39] LABS: ALBUMIN 3.8 GM/DL (3.4-5.0); ALT (GPT) 29 U/L (10-53); AST (GOT) 23 U/L (15-37); BICARBONATE 25.8 MEQ/L (21.0-32.0); BLOOD UREA NITROGEN 12 MG/DL (7-18); CALCIUM 8.8 MG/DL (8.5-10.1); CHLORIDE 109 MEQ/L (98-107); CREATININE 0.72 MG/DL (0.50-1.00); GLOMERULAR FILTRATION RATE 116 ML/MIN (>89); GLUCOSE,RANDOM 80 MG/DL (74-106); MAGNESIUM 2.1 MG/DL (1.5-2.5); SODIUM (NA) 142 MEQ/L (136-145)
[2017-10-01 05:41] LABS: ALKALINE PHOSPHATASE 101 U/L (45-117); TOTAL BILIRUBIN ADULT 1.1 MG/DL (0.2-1.0); TOTAL PROTEIN 7.1 GM/DL (6.4-8.2)
== END 2017-10-01 06:55 | disposition home or self-care (01) ==
LOC: NEPE 23:24
DX: R00.2 Palpitations (principal); R25.2 Cramp and spasm
CPT/HCPCS: 80053; 83735; 85025; 99283

== ENCOUNTER 2017-10-28 12:58 | Day surgery (SDC) | payer MEDICAID ==
[2017-10-28] MEDS ORDERED: CHLORHEXIDINE GLUCONATE 2 % 1 PACK (2 CLOTHS) TOPICAL SCH (13:30)
[2017-10-28] MEDS ORDERED: POVIDONE IODINE 5% (ANTISEPSIS KIT) 4 APPLICATIONS EACH NARE SCH (13:30)
[2017-10-28] MEDS ORDERED: MUPIROCIN 2% OINT 1 APPLIC/GM SYR NASAL SCH (13:30)
[2017-10-28] MEDS ORDERED: ceFAZolin 2 GM PREMIX 50 ML IV SCH (13:30)
[2017-10-28] MEDS ORDERED: NS 1000 ML IV SCH (13:30)
[2017-10-28] MEDS ORDERED: MIDAZOLAM HCL 5 MG/ML VIAL (1 ML) ONE (14:43)
--- NOTE | 2017-10-28 16:11 | MP ---
cc: Nishant Ham MD DATE OF OPERATION: 10/28/2017 PROCEDURE: Loop recorder insertion. INDICATIONS: Ms. Tidwell is a 27-year-old female with reported tachyarrhythmia, very symptomatic, negative electrophysiology study, who will undergo loop recorder insertion. The risks, the nature and the benefits of the procedure were clearly stated to her. Risks include pneumothorax, infection and even . She understood and agreed to proceed. PROCEDURE: After written informed consent was obtained, the patient was evaluated in the Doc Unit. Conscious sedation was initiated using intravenous Versed and fentanyl. Once sedation was verified, less than a 1 cm incision was made and the loop was injected into the skin. After adequate pacing and sensing thresholds obtained, the body was reapproximated using Dermabond and Steri-Strips. No incident reported. The patient tolerated the procedure. Blood loss minimal. 1. IMPLANTED HARDWARE: The implanted loop recorder is a [employer] model number LNQ11, serial number [id number]. 2. THRESHOLDS: 3. SENSING: The sensing is at 2.64 millivolts. 4. SETTINGS: The device was set for sean under 30, tachy over 165. CONCLUSIONS: Successful loop recorder insertion. COMMENT AND RECOMMENDATION: The patient is going to be observed and discharged home later today. MD AZALIA Chapa/SB , 03:53 PM , 04:10 PM
== END 2017-10-28 16:54 | disposition home or self-care (01) ==
LOC: HDOC 12:58 → HDIC 12:59 → HDOC 16:54
PROVIDERS: ATTEND Internal Medicine Interventional Cardiology
DX: R00.2 Palpitations (principal); I47.1 Supraventricular tachycardia
CPT/HCPCS: 33282; 99152; C1764; J0690; J2250; J3010

== ENCOUNTER 2017-12-19 21:43 | Emergency (ER) | payer OTHER, MEDICAID ==
[2017-12-19 22:05] VITALS: BP 127/60; PULSE 65; RESP 18; TEMP 98.5; O2SAT 99
[2017-12-20] MEDS ORDERED: KETOROLAC TROMETHAMINE 30 MG/ML (IVP) VIAL IV PUSH ONE (00:15)
[2017-12-20] MEDS ORDERED: SODIUM CHLORIDE 0.9% FLUSH 10 ML FLUSH IVF PRN (00:15)
[2017-12-20 01:00] VITALS: BP 107/59; PULSE 65; RESP 16; O2SAT 99
--- NOTE | 2017-12-20 01:02 | RADRPT ---
EXAM DATE: 12/20/2017 12:20 AM EDT AGE/SEX: 27 years / Female INDICATIONS: Chest pain. CLINICAL DATA: This is the patient's initial encounter. Patient reports that signs and symptoms have been present for 1 week and indicates a pain score of 6/10. MEDICAL/SURGICAL HISTORY: . SVT. LGL syndrome. . Loop recorder. COMPARISON: [facility] – [place]ST SINGLE AP, 08/02/2017. . FINDINGS: A single AP view of the chest demonstrates the lungs to be symmetrically aerated without evidence of mass, infiltrate or effusion. The cardiomediastinal contours are unremarkable. Osseous structures a re intact. CONCLUSION: No acute cardiopulmonary disease Electronically signed by: Russell Jacobs MD 12/20/2017 1:01 AM EDT
[2017-12-20 01:07] LABS: AUTOMATED NEUTROPHIL # 3.7 TH/MM3 (1.8-7.7); BASOPHIL % 0.7 % (0.0-2.0); EOSINOPHIL # 0.2 TH/MM3 (0-0.4); EOSINOPHIL % 2.8 % (0.0-4.0); HEMATOCRIT 34.5 % (35.0-46.0); HEMOGLOBIN 11.6 GM/DL (11.6-15.3); LYMPH % 33.1 % (9.0-44.0); LYMPHOCYTE # 2.3 TH/MM3 (1.0-4.8); MEAN CORPUSCULAR HEMOGLOBIN 30.6 PG (27.0-34.0); MEAN CORPUSCULAR HGB CONC 33.6 % (32.0-36.0); MEAN PLATELET VOLUME 8.1 FL (7.0-11.0); MONOCYTE # 0.7 TH/MM3 (0-0.9); NEUT % 53.4 % (16.0-70.0); PLATELET COUNT 306 TH/MM3 (150-450); RED BLOOD COUNT 3.79 MIL/MM3 (4.00-5.30); RED CELL DISTRIBUTION WIDTH 13.4 % (11.6-17.2); WHITE BLOOD COUNT 6.9 TH/MM3 (4.0-11.0)
[2017-12-20 01:24] LABS: ALBUMIN 3.7 GM/DL (3.4-5.0); ALT (GPT) 22 U/L (10-53); AST (GOT) 15 U/L (15-37); BICARBONATE 27.1 MEQ/L (21.0-32.0); BLOOD UREA NITROGEN 18 MG/DL (7-18); CALCIUM 8.2 MG/DL (8.5-10.1); CHLORIDE 110 MEQ/L (98-107); GLOMERULAR FILTRATION RATE 90 ML/MIN (>89); GLUCOSE,RANDOM 86 MG/DL (74-106); SODIUM (NA) 145 MEQ/L (136-145)
[2017-12-20 01:27] LABS: ALKALINE PHOSPHATASE 84 U/L (45-117); TOTAL BILIRUBIN ADULT 0.8 MG/DL (0.2-1.0); TOTAL PROTEIN 6.8 GM/DL (6.4-8.2); TROPONIN I LESS THAN 0.02 NG/ML (0.02-0.05)
[2017-12-20 01:35] LABS: D-DIMER 0.26 MG/L FEU (0.00-0.50); INTERNATIONAL NORMALIZED RATIO 1.1 RATIO
--- NOTE | 2017-12-20 02:10 | PD ---
HPI Chief Complaint: Chest Pain Time Seen by Provider: 00:00 Travel History International Travel<30 days: No Contact w/Intl Traveler<30days: No Traveled to known affect area: No History of Present Illness HPI Patient is a 27-year-old female with history of palpitations and chest pain, who comes in complaining of palpitations and chest pain. She has a loop recorder implanted and follows with cardiology. She says this has been going on for a little over a week. She says she has been feeling even more tired, so she felt she needed to get checked out. She denies cough or cold symptoms. She denies leg pain or swelling. Severity is mild. PFSH Past Medical History Asthma: No Blood Disorders: No Heart Rhythm Problems: Yes (SVT) Cancer: No Cardiovascular Problems: Yes (SVT) High Cholesterol: No Chemotherapy: No Chest Pain: No Congestive Heart Failure: No COPD: No Diabetes: No Diminished Hearing: No Endocrine: No Gastrointestinal Disorders: No Genitourinary: No Immune Disorder: No Implanted Vascular Access Dvce: No Musculoskeletal: No Neurologic: No Psychiatric: No Reproductive: No Respiratory: No Integumentary: Yes (cellulitis R outer leg ) Immunizations Current: Yes Radiation Therapy: No Sleep Apnea: No Thyroid Disease: No ?: Not LMP: 12/14/17 : 1 Para: 1 Past Surgical History Other Surgery: Yes (LOOP MONITOR - October) Social History Alcohol Use: No Tobacco Use: No Substance Use: No Allergies-Medications (Allergen,Severity, Reaction): Coded Allergies: No Known Allergies (Unverified Allergy, Unknown, 12/19/17) Reported Meds & Prescriptions Reported Meds & Active Scripts Active Metoprolol Tartrate 25 Mg Tab 25 Mg PO BID Review of Systems Except as stated in HPI: all other systems reviewed are Neg General / Constitutional: No: Fever, Chills HENT: No: Headaches, Lightheadedness Cardiovascular: Positive: Chest Pain or Discomfort, Palpitations Respiratory: No: Shortness of Breath Gastrointestinal: No: Nausea, Vomiting Musculoskeletal: No: Myalgias, Edema Skin: No Rash, No Change in Pigmentation Neurologic: No: Weakness, Dizziness Physical Exam Narrative GENERAL: Awake and alert, in no acute distress. SKIN: Focused skin assessment warm/dry. HEAD: Atraumatic. Normocephalic. EYES: Pupils equal and round. No scleral icterus. No injection or drainage. ENT: Mucous membranes pink and moist. NECK: Trachea midline. No JVD. CARDIOVASCULAR: Regular rate and rhythm. No murmur appreciated. RESPIRATORY: No accessory muscle use. Clear to auscultation. Breath sounds equal bilaterally. GASTROINTESTINAL: Abdomen soft, non-tender, nondistended. MUSCULOSKELETAL: No obvious deformities. No clubbing. No cyanosis. No edema. NEUROLOGICAL: Awake and alert. No obvious cranial nerve deficits. Motor grossly within normal limits. Normal speech. PSYCHIATRIC: Appropriate mood and affect; insight and judgment normal. Data Data Last Documented VS Vital Signs Date Time Temp Pulse Resp B/P (MAP) Pulse Ox O2 Delivery O2 Flow Rate FiO2 12/19/17 22:05 98.5 65 18 127/60 (82) 99 Orders Orders Electrocardiogram (12/20/17 00:01) Ckmb (Isoenzyme) Profile (12/20/17 00:01) Complete Blood Count With Diff (12/20/17 00:01) Comprehensive Metabolic Panel (12/20/17 00:01) D-Dimer (12/20/17 00:01) Prothrombin Time / Inr (Pt) (12/20/17 00:01) Act Partial Throm Time (Ptt) (12/20/17 00:01) Troponin I (12/20/17 00:01) Chest, Single Ap (12/20/17 00:01) Ecg Monitoring (12/20/17 00:01) Bilateral Bp Monitoring (12/20/17 00:01) Iv Access Insert/Monitor (12/20/17 00:01) Oximetry (12/20/17 00:01) Oxygen Administration (12/20/17 00:01) Sodium Chloride 0.9% Flush (Ns Flush) (12/20/17 00:15) Ed Urine Pregnancytest Poc (12/20/17 00:01) Ketorolac Inj (Toradol Inj) (12/20/17 00:15) CKMB (12/20/17 00:50) CKMB% (12/20/17 00:50) Labs Laboratory Tests Test 12/20/17 00:50 White Blood Count 6.9 TH/MM3 Red Blood Count 3.79 MIL/MM3 Hemoglobin 11.6 GM/DL Hematocrit 34.5 % Mean Corpuscular Volume 91.0 FL Mean Corpuscular Hemoglobin 30.6 PG Mean Corpuscular Hemoglobin Concent 33.6 % Red Cell Distribution Width 13.4 % Platelet Count 306 TH/MM3 Mean Platelet Volume 8.1 FL Neutrophils (%) (Auto) 53.4 % Lymphocytes (%) (Auto) 33.1 % Monocytes (%) (Auto) 10.0 % Eosinophils (%) (Auto) 2.8 % Basophils (%) (Auto) 0.7 % Neutrophils # (Auto) 3.7 TH/MM3 Lymphocytes # (Auto) 2.3 TH/MM3 Monocytes # (Auto) 0.7 TH/MM3 Eosinophils # (Auto) 0.2 TH/MM3 Basophils # (Auto) 0.0 TH/MM3 CBC Comment DIFF FINAL Differential Comment Prothrombin Time 11.0 SEC Prothromb Time International Ratio 1.1 RATIO Activated Partial Thromboplast Time 23.8 SEC D-Dimer Quantitative (PE/DVT) 0.26 MG/L FEU Blood Urea Nitrogen 18 MG/DL Creatinine 0.90 MG/DL Random Glucose 86 MG/DL Total Protein 6.8 GM/DL Albumin 3.7 GM/DL Calcium Level 8.2 MG/DL Alkaline Phosphatase 84 U/L Aspartate Amino Transf (AST/SGOT) 15 U/L Alanine Aminotransferase (ALT/SGPT) 22 U/L Total Bilirubin 0.8 MG/DL Sodium Level 145 MEQ/L Potassium Level 3.8 MEQ/L Chloride Level 110 MEQ/L Carbon Dioxide Level 27.1 MEQ/L Anion Gap 8 MEQ/L Estimat Glomerular Filtration Rate 90 ML/MIN Total Creatine Kinase 171 U/L Creatine Kinase MB 1.4 NG/ML Troponin I LESS THAN 0.02 NG/ML MDM Medical Decision Making Medical Screen Exam Complete: Yes Emergency Medical Condition: Yes Medical Record Reviewed: Yes Interpretation(s) ECG shows sinus rhythm at a rate of 59, no ST elevation or depression Differential Diagnosis Anemia versus dehydration versus electrolyte abnormality Narrative Course Patient is a 27-year-old female comes in complaining of chest pain and palpitations. She has had this multiple times in the past. She is followed closely with cardiology. Exam shows no acute abnormalities. Heart rate is within normal limits. IV established, labs sent. Labs show no acute abnormalities. Chest x-ray performed shows no acute abnormalities. Patient given Toradol for pain. She reports feeling better, but tired. She is advised follow-up with cardiology. Advised return to the ED as needed for any worsening symptoms. Last 24 hours Impressions Chest X-Ray 12/20/17 0001 Signed Impressions: CONCLUSION: No acute cardiopulmonary disease Diagnosis Primary Impression: Chest pain Qualified Codes: R07.9 - Chest pain, unspecified Additional Impression: Heart palpitations Patient Instructions: General Instructions, Heart Palpitations (ED) Additional Instructions: Follow-up with your doctors. Return to the ED as needed for any worsening symptoms. Disposition: 01 DISCHARGE HOME Condition: Stable Lorene Ansari MD Dec 20, 2017 02:10
[2017-12-20 02:30] VITALS: BP 106/65
--- NOTE | 2017-12-20 14:08 | EKG ---
Date Performed: 12/20/2017 Time Performed: 00:52:24 PTAGE: 27 years EKG: SINUS BRADYCARDIA WITH SHORT WA INTERVAL BORDERLINE ECG PREVIOUS TRACING : 08/24/2017 23.44 Since the previous tracing, no significant change noted DOCTOR: Rigoberto Varma Interpretating Date/Time 12/20/2017 14:06:49
== END 2017-12-20 02:34 | disposition home or self-care (01) ==
LOC: NEPC 21:43
DX: R07.9 Chest pain, unspecified (principal); R00.2 Palpitations; R00.1 Bradycardia, unspecified; Z79.899 Other long term (current) drug therapy
CPT/HCPCS: 71045; 80053; 82550; 82552; 84484; 84703; 85025; 85379; 85610; 85730; 93005; 96374; 99285; J1885